=== PATIENT | female | born 1985 | race Caucasian/White ===

== ENCOUNTER → 2018-02-12 10:30 | Outpatient (CLI) | payer OTHER, SELFPAY ==
[2018-02-17 15:00] LABS: AFP, Serum 48.3 ng/mL; Brief History NTD NOT GIVEN; Calc Gestational Age 16.3; Cigarette Smoker Y; Donated Egg NOT GIVEN; Donor Egg Age NOT GIVEN; Estriol, Free 0.77 ng/mL; Inhibin A, Dimeric 134 pg/mL; Maternal Ethnicity NOT GIVEN; Maternal Weight 155 lbs; Number of Fetuses NOT GIVEN; Previous Pregnancy Down Syndro NOT GIVEN; hCG, MoM 0.81; hCG, Serum 25.8 IU/mL
== END ==
PROVIDERS: PCP Family Medicine; Visit Provider Obstetrics & Gynecology
DX: Z34.82 Encounter for supervision of other normal pregnancy, second trimester (principal)
CPT/HCPCS: 36415; 82105; 82677; 84702; 86336

== ENCOUNTER → 2018-03-14 13:07 | Outpatient (CLI) | payer OTHER, SELFPAY ==
--- NOTE | 2018-03-14 13:08 | DI.US.S_ITS ---
PROCEDURE: US OB >= 14 WEEKS FETUS INDICATIONS: ANATOMY OUTSIDE/PRIOR DATING DATA: Last menstrual period (LMP): 10/21/17. LMP-based estimated date of delivery (DORENE): 07/28/18. First dating scan (date and location): 03/14/18. Estimated date of delivery (DORENE) from first dating scan: 07/27/18. TECHNIQUE: Real-time scanning was performed of the fetus, with image documentation and biometric measurements. Endovaginal scanning: No COMPARISON: [facility], , OB >= 14 WEEKS FETUS, 02/24/2018, 14:49. FINDINGS: General: A single living intrauterine gestation is present. Presentation: Breech. Placenta: Placental position is anterior, without previa. Amniotic fluid index: 15.1 cm, normal range is 5-24 cm. heart rate: 149 beats per minute. Maternal cervical canal: 3.6 cm long. biometrics: Biparietal diameter: 21 weeks 2 days Head circumference: 21 weeks 2 days Abdominal circumference: 20 weeks 0 days Femur length: 20 weeks 2 days Estimated gestational age from initial scan: not applicable. Composite gestational age from present scan: 20 weeks 5 days Estimated weight and percentile: 346 g; 32nd percentile Measurement variability for biometric dating: +/- 7 days from 14 weeks to 15 weeks 6 days gestation, +/- 10 days from 16 weeks to 21 weeks 6 days gestation, +/- 2 weeks from 22 weeks to 27 weeks 6 days gestation, +/- 3 weeks for 28 weeks gestation or later. weight reference: 4500 g or EFW >90/95% is considered macrosomia or large for gestational age. EFW <10% is small for gestational age. EFW 5% or less is considered intra-uterine growth restriction. Anatomic survey: Neuro: Ventricles are non-dilated at less than 10 mm. Cisterna magna is normal at 3-11 mm. Cerebellum is normal in size and morphology. Nuchal skin fold: Normal at less than 6 mm between 14-21 weeks gestational age. Face: Nose and lips, facial profile are normal. Spine: No evidence for spina bifida. Heart: 4-chambered heart is present, with normal ventricular outflow tracts. Diaphragm: Diaphragm is intact. Stomach: Left-sided stomach is present. Kidneys: No hydronephrosis. Normal is less than 5 mm in 2nd trimester, less than 7 mm in 3rd trimester. Cord: 3-vessel cord has orthotopic insertion. Bladder: Normal in size. Extremities: All 4 extremities identified. IMPRESSION: Single living IUP present with mean gestational age of 20 weeks 5 days corresponding to ultrasound DORENE of 07/27/18. Normal anatomic survey. Dictated by: Fabian Hadley RRA Interpreted: Clare Del Rio MD on 03/14/2018 at 14:19 Approved by: Clare Del Rio MD, PhD on 03/14/2018 at 15:52
== END ==
PROVIDERS: PCP Family Medicine; Visit Provider Obstetrics & Gynecology
DX: Z34.82 Encounter for supervision of other normal pregnancy, second trimester (principal); Z3A.20 20 weeks gestation of pregnancy; Z36.89 Encounter for other specified antenatal screening
CPT/HCPCS: 76811

== ENCOUNTER → 2018-04-30 13:13 | Outpatient (CLI) | payer OTHER, SELFPAY ==
[2018-04-30 14:55] LABS: Hematocrit 27.3 % (36-46); Hemoglobin 9.2 g/dL (12.0-16.0)
[2018-04-30 15:20] LABS: GTT (PREG) 1 Hour PP 50gm Dose 115 mg/dL (76-139)
== END ==
PROVIDERS: PCP Family Medicine; Visit Provider Obstetrics & Gynecology
DX: Z34.82 Encounter for supervision of other normal pregnancy, second trimester (principal)
CPT/HCPCS: 36415; 82950; 85014; 85018

== ENCOUNTER 2018-06-24 13:45 | Outpatient (RCR) | payer OTHER, SELFPAY ==
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
--- NOTE | 2018-01-23 11:14 | PT.OPPOC ---
Current Diagnoses Sacrococcygeal disorders, not elsewhere classified (01/22/18) Strain of muscle, fascia and tendon of lower back, subsequent encounter (01/22/18) 10 weeks gestation of (01/22/18) Provider Visit Care Team Role Provider Type Trinidad Ta DO Primary Care Provider Physician Specialty: Family Practice Address: [address] [place] [address] Email: [email or web address] Moriah Diop MD Attending Provider Physician Specialty: CATSHOVEL DRIVER Address: [address] [place] [address], [id number] Email: [email or web address] Plan Of Care PT-OP-T Assessment and Plan Start: 01/22/18 13:44 Freq: Status: Active Protocol: Document 01/23/18 11:06 [facility] (Rec: 01/23/18 11:12 [facility] [email or web address]) Physical Therapy Assessment Rehab Potential Rehabilitation Potential Excellent Evaluation Complexity Number of Personal Factors/Comorbidities 1-2 Number of Body Systems Impaired 1-2 Clinical Presentation at Evaluation Stable Impairments Impairments Activity Tolerance Pain Posture ROM Soft Tissue Mobility Strength Other Impairments related SI instability Goals Four Impairment 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 Short Term Goal (STG) with manual therapy techniques the SI joint is properly aligned and leg length is equal STG Duration 4 weeks Three Impairment tightness of the lumbar paraspinals and decreased lumbar flexion Short Term Goal (STG) Arleen is educated on a home stretching program for her back to improve lumbar flexion and to help decrease soft tissue tightness STG Duration 4 weeks Two Impairment SI instability in Short Term Goal (STG) Arleen is fitted with a SI belt for improved support of her SI joint and is shown home abdominal and pelvic floor bracing exercises to help her stay in alignment STG Duration 4 weeks One Impairment pain made worse with sitting and laying on the left side rated 8/10 Skewer Up Goal (LTG) Arleen notes a reduction in pain and is able to increase her sitting tolerance to 1/2 hr or greater LTG Duration 8 weeks Assessment Summary Assessment Arleen presents to PT with symptoms of increased back pain during her . She is limited in lumbar ROM and has instability of her pelvis. She would benefit from a SI belt to use at home as well as a home stabilization and flexibility exercise program Physical Therapy Plan Frequency and Duration Frequency of Treatment 2x/Week Duration of Treatment 8 weeks Plan of Care Start Date 01/22/18 Plan of Care End Date 03/19/18 Therapeutic Interventions Therapeutic Interventions Home Exercise Program Manual Therapy Neuromuscular Re-education Patient/Caregiver Education Self-Care/Home Management Soft Tissue Mobilization Therapeutic Exercises Modalities Cold Pack/Ice Massage Plan of Care Dates Plan of Care Start Date 01/22/18 Plan of Care End Date 03/19/18 Please Sign and Return: I have reviewed this Plan of Care and certify that the skilled therapy services above are required to meet the patient???s needs. Physician Signature Date Printed Name and Credentials
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
--- NOTE | 2018-06-10 16:49 | PT.OPPOC ---
Current Diagnoses Sacrococcygeal disorders, not elsewhere classified (06/10/18) Strain of muscle, fascia and tendon of lower back, subsequent encounter (06/10/18) 10 weeks gestation of (06/10/18) Provider Visit Care Team Role Provider Type Trinidad Ta DO Primary Care Provider Physician Specialty: Family Practice Address: [address] [place] [address] Email: [email or web address] Moriah Diop MD Attending Provider Physician Specialty: POULTRY FEED SUPERVISOR Address: [address] [place] [address], [id number] Email: [email or web address] Plan Of Care PT-OP-T Assessment and Plan Start: 01/22/18 13:44 Freq: Status: Active Protocol: Document 06/10/18 16:40 [facility] (Rec: 06/10/18 16:48 [facility] [email or web address]) Physical Therapy Assessment Assessment Summary Assessment Arleen returns to PT today after not being seen since . She notes she was saving her PT visits until now . She is experiencing left sided sciatic symptoms again and ongoing c/o LBP. I reviewed her HEP with her today and also discussed shoe wear for work. She has PT visits scheduled now until close to delivery. Physical Therapy Plan Frequency and Duration Frequency of Treatment 2x/Week Duration of Treatment 8 Plan of Care Start Date 06/10/18 Plan of Care End Date 08/05/18 Therapeutic Interventions Therapeutic Interventions Home Exercise Program Manual Therapy Neuromuscular Re-education Patient/Caregiver Education Self-Care/Home Management Soft Tissue Mobilization Therapeutic Exercises Next Visit Focus/Plan Next Note Type Treatment Note Next Visit Plan focus on stabilization of the SI joint for and postural modifications Plan of Care Dates Plan of Care Start Date 06/10/18 Plan of Care End Date 08/05/18 Please Sign and Return: I have reviewed this Plan of Care and certify that the skilled therapy services above are required to meet the patient?s needs. Physician Signature Date Printed Name and Credentials Clinical Instructor Signature Printed Name and Credentials
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
== END 2018-10-15 14:04 ==
LOC: PHYS 13:45
PROVIDERS: PCP Family Medicine; Visit Provider Obstetrics & Gynecology
DX: M53.3 Sacrococcygeal disorders, not elsewhere classified (principal); S39.012D Strain of muscle, fascia and tendon of lower back, subsequent encounter; Z3A.10 10 weeks gestation of pregnancy
CPT/HCPCS: 97110; 97140; 97161

== ENCOUNTER 2018-06-25 09:56 | Observation (INO) | payer OTHER, SELFPAY ==
[2018-06-25] MEDS: NIFEdipine 10 MG CAPSULE PO ×4 (10:40→11:40)
[2018-06-25] MEDS: TERBUTALINE 1 MG/ML VIAL 0.25 MG SUBCUT ×2 (12:16→13:30)
[2018-06-25] MEDS: NIFEdipine 30 MG TAB ER PO (13:25)
== END 2018-06-25 15:15 | disposition home or self-care (01) ==
PROVIDERS: Admitting Provider Obstetrics & Gynecology; PCP Family Medicine; Visit Provider Obstetrics & Gynecology
DX: Z34.83 Encounter for supervision of other normal pregnancy, third trimester (principal); Z3A.35 35 weeks gestation of pregnancy
CPT/HCPCS: 59025; 59050; 96372; G0378; G0379

== ENCOUNTER → 2018-06-25 10:43 | Outpatient (CLI) | payer OTHER, SELFPAY ==
[2018-06-26 08:00] LABS: Strep Grp B PCR POS for Grp B Strep
== END ==
PROVIDERS: PCP Family Medicine; Visit Provider Obstetrics & Gynecology
DX: Z34.93 Encounter for supervision of normal pregnancy, unspecified, third trimester (principal); Z3A.35 35 weeks gestation of pregnancy
CPT/HCPCS: 87653

== ENCOUNTER 2018-06-28 13:28 | Inpatient (IN) | payer OTHER, SELFPAY ==
[2018-06-28] MEDS: NIFEdipine 10 MG CAPSULE PO ×4 (14:17→15:25)
[2018-06-28] MEDS: LACTATED RINGERS 1,000 ML 1000 ML IV (14:30)
--- NOTE | 2018-06-28 14:52 | PM.OBTRLD ---
Visit Information Visit Information Date of evaluation: 06/28/18 Primary OB Provider: Moriah Diop On-call OB Provider: Marian Conrad Reason for Evaluation: Yes pre-term labor [facility] Medical History Depression (Chronic) Migraines (Chronic) Abnormal Pap smear of cervix (Resolved) Surgical History History of third molar tooth extraction (Resolved) Status post wrist surgery (Resolved) Social History Smoking Status: Former smoker (quit about 5 months ago) Evaluation Evaluation Baseline heart rate: 140 Variability: Moderate (11-25) monitor accelerations: Present monitor decelerations: Absent Contraction Frequency (minutes): 2 Uterine Contraction Intensity: Mild Category of Tracing: I Cervical dilation (cm): 3 Cervical effacement (%): 50 station: -2 Diagnosis, Plan/Disposition Final Diagnosis (1) 35 weeks gestation of : Current Visit: Yes Status: Acute Plan/Disposition Plan: Patient came to the center with regular contractions every 2 minutes. Contractions decreased in intensity and frequency with fluids and nifedipine. SVE unchanged from 3 days ago.
--- NOTE | 2018-06-28 14:57 | P.TNLD_ITS ---
Visit Information Visit Information Date of evaluation: 06/28/18 Primary OB Provider: Moriah Diop On-call OB Provider: Marian Conrad Reason for Evaluation: Yes pre-term labor [facility] Medical History Depression (Chronic) Migraines (Chronic) Abnormal Pap smear of cervix (Resolved) Surgical History History of third molar tooth extraction (Resolved) Status post wrist surgery (Resolved) Social History Smoking Status: Former smoker (quit about 5 months ago) Evaluation Evaluation Baseline heart rate: 140 Variability: Moderate (11-25) monitor accelerations: Present monitor decelerations: Absent Contraction Frequency (minutes): 2 Uterine Contraction Intensity: Mild Category of Tracing: I Cervical dilation (cm): 3 Cervical effacement (%): 50 station: -2 Diagnosis, Plan/Disposition Final Diagnosis (1) 35 weeks gestation of : Current Visit: Yes Status: Acute Plan/Disposition Plan: Patient came to the center with regular contractions every 2 minutes. Contractions decreased in intensity and frequency with fluids and nifedipine. SVE unchanged from 3 days ago.
[2018-06-28] MEDS: MORPHINE 10 MG/ML INJ IV (15:25)
--- NOTE | 2018-06-28 17:10 | PM.OBHP.1 ---
OB HPI Date/Time Date of admission: 06/28/18 Date Patient Seen: 06/28/18 Time Patient Seen: 16:29 History of Present Condition Chief complaint: eval of labor : 2 Para: 1 Estimated Date of Delivery: 07/27/18 Estimated Gestational Age (weeks): 35w6d Narrative: Arleen Bird is a 32 year old female at 35+6 weeks gestation by LMP and first trimester US. Patient received regular care beginning at 10 weeks gestation. complicated by hypothyroidism, depression and chronic back pain. Patient took citalopram, bupropion, levothyroxine and tramadol throughout her . She presented today with regular painful contractions which began at noon on 06/28/18. She was seen in the center on 06/25/18 due to contractions and received nifedipine and terbutaline at that visit. History of Present care: good care, initiated at week # (10), number of visits (9) and pounds weight gain (27 lbs) Dating criteria: LMP confirmed by 1st trimester US (LMP 10/21/17, UW at 10 wks with DORENE of 07/30/18) Ultrasounds: normal mid trimester US Obstetrical complications: none Narrative: Chronic back pain on tramadol Depression on citalopram and bupropion Hypothyroidism on levothyroxine Preadmission Labs Blood type: A (+) positive -: Antibody screen: negative, GBS status: positive, HBsAG: negative, HIV: negative, HSV 1: negative, HSV 2: negative and RPR/VDLR: negative -: Chlamydia screen: not detected and Gonorrhea screen: not detected -: Rubella: not immune and Varicella: immune HCT: 33.3 PAP: Normal Integrated screen: Negative Quad screen: Normal Urine: Negative 1 hr GTT: 113 Prior (ies) History: 04/03/2009 at 40 weeks, 6 lbs 9 oz female, difficulty with epidural, delivered at [facility] Evaluation Evaluation Baseline heart rate: 140 Variability: Moderate (11-25) monitor accelerations: Present monitor decelerations: Absent Contraction Frequency (minutes): 3 Uterine Contraction Intensity: Moderate Category of Tracing: I Cervical dilation (cm): 4 Cervical effacement (%): 90 station: -2 [facility] Medical History Depression (Chronic) Migraines (Chronic) Abnormal Pap smear of cervix (Resolved) Surgical History History of third molar tooth extraction (Resolved) Status post wrist surgery (Resolved) Social History Smoking Status: Former smoker (quit about 5 months ago) Meds Home Medications Medication Instructions Recorded Confirmed Type levothyroxine 75 mcg tablet 75 mcg PO QDAY #90 tab 01/21/18 05/28/18 Rx hydrocortisone 2.5 % topical cream 1 applictn [place] Q12H PRN #30 gram 02/12/18 05/28/18 Rx with perineal applicator bupropion HCl SR 150 mg tablet,12 150 mg PO BID #60 tab 03/25/18 05/28/18 Rx hr sustained-release acetaminophen 500 mg tablet 1,000 mg PO Q6H PRN #120 tab 04/09/18 05/28/18 Rx hydroxyzine HCl 50 mg tablet 50 mg PO QID PRN #120 tab 04/09/18 05/28/18 Rx citalopram 40 mg tablet 40 mg PO Q DAY #90 tab 05/21/18 05/28/18 Rx lidocaine 5 % topical patch 1 patch TOP DAILY #15 each 05/21/18 05/28/18 Rx tramadol 50 mg tablet 100 mg PO Q6H #120 tab 06/19/18 Rx gabapentin 300 mg capsule 600 mg PO BEDTIME #60 cap 06/27/18 Rx Allergies Allergy/AdvReac Type Severity Reaction Status Date / Time ketorolac [From TORADOL] Allergy Intermediate vomiting Verified 05/28/18 15:19 clindamycin [CLINDAMYCIN] Allergy Mild rash/itchy Verified 05/28/18 15:19 Review of Systems Review of Systems All systems reviewed & are unremarkable except as noted in HPI and below Exam Vital Signs (past 8 hours): Temperature 36.2 BP 109/67 Pulse 108 Const General: cooperative and healthy appearing [facility] Head: normal to inspection Ears: external ears normal Nose: external nose normal Mouth: oral mucosae normal Eyes General: appearance normal, both eyes and all related structures Neck Neck: normal visual inspection and No lymphadenopathy Resp Effort & Inspection: normal respiratory effort Auscultation: clear to auscultation bilaterally, no rhonchi and no wheezes Cardio Rate: regular rate Rhythm: regular rhythm Heart Sounds: S1 normal and S2 normal GI Other: Gravid Neuro General: alert, awake and oriented x3 Extrem General: no pedal edema Psych Appearance: grossly normal Mental Status: mental status grossly normal Mood: congruent mood Affect: normal affect Attitude: cooperative Thought Process: normal Thought Content: normal Judgment: judgment good Assessment and Plan (1) 35 weeks gestation of : Current visit: Yes Status: Acute (2) labor: Current visit: Yes Status: Acute Plan: Patient is a 32-year-old at 35 and 5 weeks gestation based on LMP and first trimester ultrasound here with labor. complicated by hypothyroidism, depression and chronic back pain. Patient did take tramadol throughout her . She was monitored over the afternoon today due to regular painful contractions and had cervical change from 3 to 4 cm despite nifedipine and IV fluids. We do not have the nursery or nursing staff available to us to manage a . Plan - Transfer to [facility] for NICU capabilities - Patient is GBS positive and receiving one dose of penicillin now - One dose of betamethasone will be given prior to transfer Patient and her partner aware of and appreciative of plan.
[2018-06-28 17:26] LABS: Add Manual Diff / Slide Review NO; Basophils Percent Auto 0.1 % (0-2); Eosinophils Percent Auto 0.5 % (2-4); Hemoglobin 9.1 g/dL (12.0-16.0); Lymphocytes Percent Auto 16.6 % (25-40); Mean Corpuscular HGB Conc 32.6 % (30-36); Mean Corpuscular Hemoglobin 26.8 PG (26-34); Mean Corpuscular Volume 82.4 fL (80-100); Monocytes Percent Auto 5.7 % (3-14); Neutrophils Absolute Auto 10400 /uL (3000-5900); Neutrophils Percent Auto 77.1 % (50-75); Platelet Count 230 X10^3/uL (150-400); Red Cell Distribution Width 13.5 % (11.6-14.8); White Blood Cell Count 13.5 X10^3/uL (4.5-11.0)
[2018-06-28] MEDS: LACTATED RINGERS 1,000 ML 100 ML IV (17:30)
[2018-06-28] MEDS: PENICILLIN G POTASSIUM 5,000,000 UNIT in DEXTROSE 5% IN WATER 250 ML IV (17:30)
[2018-06-28] MEDS: BETAMETHASONE 30 MG/5 ML MDV 12 MG IM (17:34)
== END 2018-06-28 17:52 | disposition short-term general hospital (02) | DRG 833 ==
PROVIDERS: Admitting Provider Family Medicine; PCP Family Medicine; Visit Provider Family Medicine
DX: O60.03 Preterm labor without delivery, third trimester (principal); Z3A.35 35 weeks gestation of pregnancy; O99.283 Endocrine, nutritional and metabolic diseases complicating pregnancy, third trimester; E03.9 Hypothyroidism, unspecified; O99.343 Other mental disorders complicating pregnancy, third trimester; F32.9 Major depressive disorder, single episode, unspecified; G89.29 Other chronic pain
CPT/HCPCS: 36415; 59025; 59050; 85025; 86850; 86900; 86901; 96360; 96372; 99236; G0378; G0379; J0702; J2270; J2540

== ENCOUNTER 2018-07-06 16:52 | Inpatient (IN) | payer OTHER, SELFPAY ==
[2018-07-06] MEDS: PENICILLIN G POTASSIUM 5,000,000 UNIT in DEXTROSE 5% IN WATER 250 ML IV (17:00)
[2018-07-06] MEDS: ONDANSETRON 4 MG/2 ML INJ IV (17:20)
--- NOTE | 2018-07-06 18:00 | PM.OBHP.1 ---
OB HPI Date/Time Date of admission: 07/06/18 Date Patient Seen: 07/06/18 Time Patient Seen: 18:01 History of Present Condition Chief complaint: OBSERVATION : 2 Para: 1 Estimated Date of Delivery: 07/28/18 Estimated Gestational Age (weeks): 36 Narrative: Arleen Bird is a 32 year old female two para one who presents with a history of onset of labor at approximately 2:00 p.m. and rupture membranes at approximately 4:00 p.m.. She presented to labor and delivery sweets completely dilated with lightly meconium stained amniotic fluid. Patient by history of GBS positive. Please see laboratory studies below History of Present care: good care Dating criteria: LMP confirmed by 1st trimester US Ultrasounds: normal 1st trimester US and normal mid trimester US Obstetrical complications: none and labor Medical complications: none Narrative: Patient presents in spontaneous labor with rupture membranes at 36+ weeks Preadmission Labs Blood type: A (+) positive -: Antibody screen: negative, Cystic fibrosis screen: positive ([place]), GBS status: positive, HBsAG: negative, HIV: negative, HSV 1: negative, HSV 2: negative and RPR/VDLR: negative -: Chlamydia screen: not detected and Gonorrhea screen: not detected -: Rubella: not immune HCT: 33.3 HCAB: negative PAP: Normal Integrated screen: Negative 1 hr GTT: 191 PFSH Social History Smoking Status: Former smoker (quit about 5 months ago) Meds Home Medications Medication Instructions Recorded Confirmed Type levothyroxine 75 mcg tablet 75 mcg PO QDAY #90 tab 01/21/18 05/28/18 Rx hydrocortisone 2.5 % topical cream 1 applictn MD Q12H PRN #30 gram 02/12/18 05/28/18 Rx with perineal applicator bupropion HCl SR 150 mg tablet,12 150 mg PO BID #60 tab 03/25/18 05/28/18 Rx hr sustained-release acetaminophen 500 mg tablet 1,000 mg PO Q6H PRN #120 tab 04/09/18 05/28/18 Rx hydroxyzine HCl 50 mg tablet 50 mg PO QID PRN #120 tab 04/09/18 05/28/18 Rx citalopram 40 mg tablet 40 mg PO Q DAY #90 tab 05/21/18 05/28/18 Rx lidocaine 5 % topical patch 1 patch TOP DAILY #15 each 05/21/18 05/28/18 Rx tramadol 50 mg tablet 100 mg PO Q6H #120 tab 06/19/18 Rx gabapentin 300 mg capsule 600 mg PO BEDTIME #60 cap 06/27/18 Rx nifedipine ER 30 mg 30 mg PO BID #30 tab 06/30/18 Rx tablet,extended release Allergies Allergy/AdvReac Type Severity Reaction Status Date / Time ketorolac [From TORADOL] Allergy Intermediate vomiting Verified 05/28/18 15:19 clindamycin [CLINDAMYCIN] Allergy Mild rash/itchy Verified 05/28/18 15:19 Exam Const General: cooperative and healthy appearing [facility] Head: normal to inspection Ears: hearing grossly normal bilaterally Nose: external nose normal Face and sinus: normal facial exam Mouth: oral mucosae normal, lip normal, tongue normal and moist mucous membranes Teeth and gingiva: dentition normal Throat: posterior oropharynx normal Eyes General: appearance normal, both eyes and all related structures Neck Neck: normal visual inspection and full ROM Chest Chest: normal inspection of the chest and normal palpation of entire chest wall Breast inspection: normal inspection of the breasts and normal inspection of the axillae Breast Palpation: normal palpation of the breasts and normal palpation of the axillae Resp Effort & Inspection: normal respiratory effort Auscultation: clear to auscultation bilaterally Cardio Palpation: normal PMI Rate: regular rate Rhythm: regular rhythm Heart Sounds: S1 normal and S2 normal GI Inspection: normal to inspection Palpation: soft and no hepatosplenomegaly Percussion: normal to percussion Auscultation: normal bowel sounds Manual OB Exam: dilated 10, effaced fully and station 0 Presentation: vertex Amniotic Fluid: meconium Back/Spine/Pelvis Thoracic/Lumbar Spine: thoracic and lumbar spine normal to inspection Skin General: no rashes or lesions noted Neuro General: alert, oriented x3, tone normal and moves all extremities Cognition: normal cognition Speech: speech normal Gait: normal gait Motor: muscle tone normal throughout Sensory Exam: no sensory deficits noted Extrem General: normal to inspection and normal exam except as noted Psych Appearance: grossly normal and well kempt Mental Status: mental status grossly normal Speech and Movement: speech and movement normal Assessment and Plan (1) 36 weeks gestation of : Onset Date: ~07/06/18 Current visit: Yes Status: Acute Plan: Plan: IV fluids Epidural anesthesia Delivery IV penicillin
--- NOTE | 2018-07-06 20:02 | PM.OBPRVD ---
Events: Labor < 37 Weeks Delivery date: 07/06/18 Intrapartal events: Abnormal Presentation (Face presentation, mentum anterior) Induction method: none Delivery monitor: external FHT and external uterine Route of delivery: Episiotomy description: None Laceration description: Vaginal - 2nd Degree Delivery repair: vicryl and chromic Estimated blood loss (mL): 250 Anesthesia type: Spinal Complications: Face presentation Loose body cord x 1 Narrative: The patient was complete and pushed for 35 min. At 1915, a live female infant delivered spontaneously with a face presentation, mentum anterior, over an intact perineum. Once the head delivered the baby rotated to the left occiput transverse presentation and the remainder of the body delivered without difficulty. There was a loose body cord x1. This was reduced. The was placed on mom's abdomen. The cord was double clamped and cut. Cord bloods were obtained. The placenta delivered intact with a 3 vessel cord at 7:20 p.m.. A second-degree vaginal laceration was repaired in the usual fashion. Estimated blood loss 250 cc. Apgars 6 at 1 min and 8 at 5 min. Spinal anesthesia. . Mom and stable to recovery. Plan for aftercare: To routine care
--- NOTE | 2018-07-06 20:09 | P.PCNOB_ITS ---
Events: Labor < 37 Weeks Delivery date: 07/06/18 Intrapartal events: Abnormal Presentation (Face presentation, mentum anterior) Induction method: none Delivery monitor: external FHT and external uterine Route of delivery: Episiotomy description: None Laceration description: Vaginal - 2nd Degree Delivery repair: vicryl and chromic Estimated blood loss (mL): 250 Anesthesia type: Spinal Complications: Face presentation Loose body cord x 1 Narrative: The patient was complete and pushed for 35 min. At 1915, a live female infant delivered spontaneously with a face presentation, mentum anterior , over an intact perineum. Once the head delivered the baby rotated to the left occiput transverse presentation and the remainder of the body delivered without difficulty. There was a loose body cord x1. This was reduced. The infant was placed on mom's abdomen. The cord was double clamped and cut. Cord bloods were obtained. The placenta delivered intact with a 3 vessel cord at 7: 20 p.m.. A second-degree vaginal laceration was repaired in the usual fashion. Estimated blood loss 250 cc. Apgars 6 at 1 min and 8 at 5 min. Spinal anesthesia. . Mom and infant stable to recovery. Plan for aftercare: To routine care
[2018-07-06 21:51] VITALS: BP 130/58
[2018-07-06] MEDS: IBUPROFEN 600 MG TABLET PO (23:17)
[2018-07-07] MEDS: IBUPROFEN 600 MG TABLET PO ×3 (06:09→21:11)
[2018-07-07 06:50] LABS: Hematocrit 24.9 % (36-46); Hemoglobin 8.5 g/dL (12.0-16.0)
[2018-07-07] MEDS: PRENATAL VIT,CALC/IRON/FOLIC 1 TABLET 1 TAB PO (08:12)
[2018-07-07] MEDS: DOCUSATE 250 MG CAPSULE PO (08:12)
[2018-07-07] MEDS: OXYCODONE/ACETAMINOPHEN 5/325 TABLET 2 TAB PO ×4 (08:13→21:11)
[2018-07-07] MEDS: LEVOTHYROXINE 75 MCG TABLET PO (08:16)
[2018-07-07] MEDS: CITALOPRAM 20 MG TABLET 40 MG PO (08:16)
[2018-07-07] MEDS: buPROPion SR 150 MG TAB PO ×2 (08:16→21:10)
--- NOTE | 2018-07-07 18:35 | P.PNOB_ITS ---
Subjective - OB Patient comments: no complaints baby status: other (Blood sugar issues) Campbell feeding status: breast and bottle feeding Date Patient Seen: 07/07/18 Time Patient Seen: 18:32 Exam Vital Signs (past 8 hours): Generally: Patient is sitting up in bed, holding , no acute distress Fundus: Firm at U -2 Extremities: Negative Homans, no edema Objective Labs Result Diagrams: 07/07/18 06:08 Labs: Laboratory Results - last 24 hr 07/07/18 06:08 Hgb 8.5 L Hct 24.9 L Assessment & Plan (1) 36 weeks gestation of : Status: Acute Current Visit: Yes (2) Vaginal delivery: Status: Acute Current Visit: Yes (3) Face presentation of fetus: Status: Acute Assessment and plan: Assessment: 32-year-old day # 1 status post spontaneous vaginal delivery with face presentation Baby with blood sugar issues Plan: Routine care for mom Anticipate discharge of mom tomorrow Current Visit: Yes Plan day: 1 plan OB: routine care Time Spent With Patient Total time spent is greater than 50% in coordination of care (as documented) at patient's floor/unit and/or counseling patient: less than 15 minutes
[2018-07-08] MEDS: IBUPROFEN 600 MG TABLET PO ×2 (03:47→09:14)
[2018-07-08] MEDS: OXYCODONE/ACETAMINOPHEN 5/325 TABLET 2 TAB PO ×3 (03:48→09:14)
[2018-07-08] MEDS: PRENATAL VIT,CALC/IRON/FOLIC 1 TABLET 1 TAB PO (09:10)
[2018-07-08] MEDS: DOCUSATE 250 MG CAPSULE PO (09:13)
[2018-07-08] MEDS: LEVOTHYROXINE 75 MCG TABLET PO (09:13)
[2018-07-08] MEDS: CITALOPRAM 20 MG TABLET 40 MG PO (09:13)
[2018-07-08] MEDS: buPROPion SR 150 MG TAB PO (09:13)
--- NOTE | 2018-07-08 09:54 | P.DS_ITS ---
Discharge Providers Date of admission: 07/06/18 16:52 Primary care physician: Trinidad Ta DO Consults: 07/06/18 21:45 Consult to Field Agent Routine Comment: Discharge provider: Alyssa Tapia MD Discharge Date: 07/08/18 Summary Date Patient Seen: 07/08/18 Time Patient Seen: 09:50 Hospital Course: Patient arrived on Labor and delivery in active labor. The baby was in face presentation. She did deliver spontaneously vaginally. She had a second- degree tear that was repaired. Patient did well . She denies any signs or symptoms of preeclampsia. She is having moderate amount of bleeding. No significant depression at this time. Blood pressure 117/73, pulse of 107, temperature 98.9? Patient's abdomen is soft, nontender. Uterus is firm, at U, nontender. Mild to moderate lochia. Repair intact. Extremities without edema and nontender. Peripartum Data Delivery Method: Natural Vaginal Laceration description: Perineal - 2nd Degree Procedures: IV penicillin for positive group B strep culture, Spinal caudal block, vaginal delivery, repair of second-degree tear complications: none Discharge Diagnosis (1) 36 weeks gestation of : Status: Acute (2) Vaginal delivery: Status: Acute (3) Face presentation of fetus: Status: Acute Status at Discharge Functional status at discharge: independent ambulation Overall status at discharge: patient is progressing back to baseline Time Spent with Patient Total time spent providing and/or coordinating discharge services: Less than 30 minutes Objective Labs Result Diagrams: 07/07/18 06:08 Discharge Plan Discharge Plan Patient Disposition: Home Discharge Med Rec/Prescriptions Prescriptions: New oxycodone-acetaminophen 5-325 mg Tablet 2 tab PO Q4HR PRN (Reason: Pain, Moderate (4-6)) Qty: 20 RF: 0 ibuprofen 600 mg Tablet 600 mg PO Q6HR PRN (Reason: Pain, Mild (1-3)) Qty: 30 RF: 0 docusate sodium 250 mg Capsule 250 mg PO DAILY Qty: 20 RF: 0 Continue levothyroxine [Synthroid] 75 mcg tablet 75 mcg PO QDAY Qty: 90 RF: 4 bupropion HCl [Wellbutrin SR] 150 mg tablet extended release 12 hr 150 mg PO BID Qty: 60 RF: 3 tramadol 50 mg tablet 100 mg PO Q6H Qty: 120 RF: 0 gabapentin 300 mg capsule 600 mg PO BEDTIME Qty: 60 RF: 1 hydrocortisone [Anusol-HC] 2.5 % cream with perineal applicator 1 applictn [place] Q12H PRN (Reason: hemorrhoids) Qty: 30 RF: 2 acetaminophen [Tylenol Extra Strength] 500 mg tablet 1,000 mg PO Q6H PRN (Reason: pain) Qty: 120 RF: 1 citalopram 40 mg tablet 40 mg PO Q DAY Qty: 90 RF: 1 Discontinued nifedipine 30 mg tablet extended release 30 mg PO BID Qty: 30 RF: 1 hydroxyzine HCl 50 mg tablet 50 mg PO QID PRN (Reason: nausea and vomiting) Qty: 120 RF: 0 lidocaine 5 % adhesive patch,medicated 1 patch TOP DAILY Qty: 15 RF: 0 Follow up/Referrals: Moriah Diop MD [Physician] - 6 Weeks Trinidad Ta DO [Primary Care Provider] - Provider Discharge Instructions Diet: Regular Activity: Nothing in vagina for 6 weeks Skin/Wound/Dressing Care Report to your healthcare provider any signs of infection, such as:: chills, fever, increased pain and unusual drainage Discharge Data Primary Care Provider: Trinidad Ta Attending Provider: Godwin Walls Admirvin Date/Time: 07/06/18 16:52
[2018-07-08 13:05] VITALS: BP 130/58; PULSE 80; RESP 18; TEMP 36.4
[2018-07-08] MEDS: MEASLES,MUMPS,RUBELLA VACC/PF 0.5 ML VIAL SUBCUT (15:30)
== END 2018-07-08 15:30 | disposition home or self-care (01) | DRG 805 ==
PROVIDERS: Obstetrics & Gynecology; PCP Family Medicine
DX: O32.3XX0 Maternal care for face, brow and chin presentation, not applicable or unspecified (principal); O60.14X0 Preterm labor third trimester with preterm delivery third trimester, not applicable or unspecified; Z37.0 Single live birth; Z3A.36 36 weeks gestation of pregnancy; O70.1 Second degree perineal laceration during delivery; O99.824 Streptococcus B carrier state complicating childbirth
CPT/HCPCS: 01967; 36415; 59050; 59400; 76815; 84112; 85014; 85018; G0379; J2405; J2540

== ENCOUNTER → 2018-08-19 14:45 | Outpatient (CLI) | payer OTHER, SELFPAY ==
[2018-08-19 17:01] LABS: Free T4, Direct Thyroxine 0.83 ng/dL (0.78-2.19)
[2018-08-19 17:15] LABS: Thyroid Stimulating Hormone 0.77 uIU/mL (0.47-4.68)
== END ==
PROVIDERS: PCP Family Medicine; Visit Provider Obstetrics & Gynecology
DX: R63.5 Abnormal weight gain (principal)
CPT/HCPCS: 36415; 84439; 84443

== ENCOUNTER 2019-03-14 17:36 | Emergency (ER) | payer SELFPAY ==
[2019-03-14 17:40] VITALS: BP 113/67; PULSE 98; RESP 16; TEMP 36.5; O2SAT 98; BMI 58.6
--- NOTE | 2019-03-14 19:18 | ED_ITS ---
HPI - Back Pain/Injury <Didi AndersenRODERICK - Last Filed: 03/14/19 21:24> General Chief Complaint: Back Pain/Injury Stated Complaint: low back pain x2 days Time Seen by Provider: 03/14/19 19:06 Source: patient Mode of arrival: ambulatory Limitations: no limitations History of Present Illness HPI Narrative: 33-year-old female with a history of sciatica, presents emergency department today complaining of lower back pain that started about a week ago after picking up the child. She states it is a constant dull aching 8/10 to her lumbar region and radiates down her right leg. States pain is sharp and worse when she moves, and better with rest. She has been taking ibuprofen and using ice without relief. Also states that she is currently breast-feeding. Denies numbness or tingling, denies saddle paresthesias, loss of bowel or bladder control, fevers, chills, chest pain, shortness of breath, abdominal pain, change in bowel or bladder patterns. Patient also reports she has received multiple steroid injections for her chronic sciatica, however this feels different. MD Complaint: back pain Onset (ago): day(s) Duration: constant Similar Symptoms Previously: No Severity: moderate Severity scale (1-10): 8 Related Data Previous Rx's Medication Instructions Recorded acetaminophen 500 mg tablet 1,000 mg PO Q6H PRN #120 tab 04/09/18 hydroxyzine HCl 50 mg tablet 50 mg PO QID PRN #120 tab 04/09/18 lidocaine 5 % topical patch 1 patch TOP DAILY #15 each 05/21/18 nifedipine ER 30 mg 30 mg PO BID #30 tab 06/30/18 tablet,extended release docusate sodium 250 mg PO DAILY #20 cap 07/08/18 ibuprofen 600 mg PO Q6HR PRN #30 tab 07/08/18 oxycodone-acetaminophen 2 tab PO Q4HR PRN #20 tab 07/08/18 gabapentin 300 mg capsule 600 mg PO BEDTIME #60 cap 09/10/18 hydrocortisone 2.5 % topical cream 1 applictn NH Q12H PRN #30 gram 09/10/18 with perineal applicator bupropion HCl SR 150 mg tablet,12 150 mg PO BID #60 tab 09/11/18 hr sustained-release tramadol 50 mg tablet 100 mg PO Q6H #120 tab 01/09/19 citalopram 40 mg tablet 40 mg PO Q DAY #90 tab 03/02/19 levothyroxine 75 mcg tablet 75 mcg PO QDAY #90 tab 03/11/19 hydrocodone-acetaminophen [Brinklow] 1 tab PO Q6H PRN #5 tab 03/14/19 prednisone 40 mg PO DAILY 2 Days #4 tab 03/14/19 Allergies Allergy/AdvReac Type Severity Reaction Status Date / Time ketorolac [From TORADOL] Allergy Intermediate vomiting Verified 09/10/18 16:17 clindamycin [CLINDAMYCIN] Allergy Mild rash/itchy Verified 09/10/18 16:17 Review of Systems <RODERICK Alcazar - Last Filed: 03/14/19 21:24> Review of Systems REVIEW OF SYSTEMS: GENERAL: Denies fever or chills. HENT: No head trauma, hearing loss or sore throat. EYES: No loss of vision, double vision, eye pain, or irritation. CARDIOVASCULAR: No chest pain or syncope. RESPIRATORY: No shortness of breath or cough. GASTROINTESTINAL: No nausea, vomiting, diarrhea, or constipation. GENITOURINARY: No flank pain or dysuria. MUSCULOSKELETAL: Complains of back pain, see HPI. INTEGUMENTARY: No rash, lesions, or pruritus. NEURO: No numbness, tingling, memory loss, or confusion. PSYCH: No behavior or mood changes. PFSH <RODERICK Alcazar - Last Filed: 03/14/19 21:24> Medical History Depression (Chronic) Migraines (Chronic) Abnormal Pap smear of cervix (Resolved) Surgical History History of third molar tooth extraction (Resolved) Status post wrist surgery (Resolved) Social History Smoking Status: Unknown if ever smoked Social History Smoking Status: Unknown if ever smoked Exam <RODERICK Alcazar - Last Filed: 03/14/19 21:24> Initial Vital Signs Initial Vital Signs: Vital Signs Temperature 97.7 F 03/14/19 17:40 Pulse Rate 98 H 03/14/19 17:40 Respiratory Rate 16 03/14/19 17:40 Blood Pressure 113/67 03/14/19 17:40 Pulse Oximetry 98 03/14/19 17:40 PHYSICAL EXAMINATION: GENERAL: Well groomed, alert, and cooperative. Answers questions promptly and appropriately. Vital signs noted. HENT: Normocephalic, atraumatic. EYES: conjunctiva pink, sclera white, no periorbital swelling. NECK: Full range of motion, no pain with palpation. CHEST: Normal to inspection and without deformities. CARDIOVASCULAR: S1 and S2 sounds normal. Regular rate and rhythm, no murmurs, clicks, or bruits. No pedal edema. RESPIRATORY: Normal respiratory rate, trachea midline, airway patent. No stridor, nasal flaring or accessory muscle use. Lungs are clear in all hoskins without wheeze, rhonchi, or crackles. MUSCULOSKELETAL: Patient has a limp due to pain in her back. Paraspinal tenderness to upper portion of lumbar region slight tenderness to intervertebral space around L3, tenderness of the right hip. Positive straight leg test. Equal sensation bilaterally. Equal tone and mass bilaterally. EXTREMITIES: CMS intact. Full range of motion and 5/5 strength to upper and lower extremities SKIN: Warm, dry, soft, appropriate color for ethnicity. No lesions, rashes, or wounds. NEURO: Alert and Oriented X 3. Good coordination. No ataxia, or sensory deficits, or cognitive issues. PSYCH: Appropriate affect and mood. <Jenny Gan DO - Last Filed: 03/15/19 09:34> Initial Vital Signs Initial Vital Signs: Vital Signs Temperature 97.7 F 03/14/19 17:40 Pulse Rate 98 H 03/14/19 17:40 Respiratory Rate 16 03/14/19 17:40 Blood Pressure 113/67 03/14/19 17:40 Pulse Oximetry 98 03/14/19 17:40 Course <RODERICK Alcazar - Last Filed: 03/14/19 21:24> Course Narrative: Had an extensive conversation with patient about options for back pain medications without be appropriate for . Spoke with patient that imaging for back spasm for herniated disc would not change the plan of care for even show up on the x-ray. Discussed that follow-up was appropriate, however patient verbalized that she does not have insurance. Orders Ordered: Discontinued Medications Hydrocodone Bitart/Acetaminophen (Vicodin Prepack) 1 bottle MISC SEEINSTR ONE Stop: 03/14/19 19:31 Last Admin: 03/14/19 20:08 Dose: 1 bottle Prednisone (Deltasone) 40 mg PO NOW ONE Stop: 03/14/19 19:31 Last Admin: 03/14/19 20:08 Dose: 40 mg Consultations Consultation #1: Patient staffed with Dr. Harris. Vital Signs - 8 hr 03/14/19 17:40 Temperature 97.7 F Pulse Rate 98 H Respiratory Rate 16 Blood Pressure 113/67 Pulse Oximetry 98 <Jenny Gan DO - Last Filed: 03/15/19 09:34> Orders Ordered: Discontinued Medications Hydrocodone Bitart/Acetaminophen (Vicodin Prepack) 1 bottle MISC SEEINSTR ONE Stop: 03/14/19 19:31 Last Admin: 03/14/19 20:08 Dose: 1 bottle Prednisone (Deltasone) 40 mg PO NOW ONE Stop: 03/14/19 19:31 Last Admin: 03/14/19 20:08 Dose: 40 mg Vital Signs - 8 hr 03/14/19 17:40 Temperature 97.7 F Pulse Rate 98 H Respiratory Rate 16 Blood Pressure 113/67 Pulse Oximetry 98 MDM - Back Pain/Injury <RODERICK Alcazar - Last Filed: 03/14/19 21:24> Medical Records Attestation: I reviewed the patient's medical records. Lab Data Attestation: I reviewed the patient's lab results. MDM Narrative Medical decision making narrative: Unsure exact cause of patient's pain however I suspect that due to mechanism of injury, location of pain, and exam that patient is experiencing a back spasm. It is additionally possible that she has a herniated disc history reports multiple back injuries requiring steroid injections. However imaging would not help with the plan of care. Discussed with patient following up for further testing and or physical therapy. Additionally discussed with patient that her allergies and the fact that she is breast-feeding limits what we can prescribe her. 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 We discussed that she will need to not breastfeed while she is taking this medication or drive as this can make her drowsy. Less likely infection due to lack of fevers or other systemic symptoms, less likely fracture due to lack of trauma, less likely cauda equina due to lack of pelvic paresthesias or loss of bowel or bladder control. Discharge Plan Departure Patient Disposition: Home Clinical Impression: Lumbar back pain Discharge Date/Time: 03/14/19 20:21 Interventions: ED Discharge Assessment Last Done: 03/14/19 20:20 Instructions: DI for Sciatica, DI for Back Spasm Activity Restrictions/Additional Instructions: Thank you for entrusting me with your care today. As discussed, it appears your back pain is from a back spasm that is aggravating your sciatica. Additionally I cannot rule out a herniated disc this does not show up on x-rays, few symptoms persist I recommend following up with your primary care provider for discussion about further testing and or physical therapy. I prescribed you prednisone, please take this after you breastfeed and wait 4 hours before again. I Have also prescribed you a narcotic pain medication as requested, please pump and dump after using this medication, do not drive with this medication is a can make you drowsy. Return to the emergency department if he develops chest pain, shortness of breath, fevers that are not controlled with Tylenol ibuprofen, or blood in her stool. Prescriptions: New hydrocodone-acetaminophen [Brinklow] 5-325 mg tablet 1 tab PO Q6H PRN (Reason: pain) Qty: 5 RF: 0 prednisone 20 mg tablet 40 mg PO DAILY 2 Days Qty: 4 RF: 0 No Action nifedipine 30 mg tablet extended release 30 mg PO BID Qty: 30 RF: 1 gabapentin 300 mg capsule 600 mg PO BEDTIME Qty: 60 RF: 1 bupropion HCl [Wellbutrin SR] 150 mg tablet sustained-release 12 hr 150 mg PO BID Qty: 60 RF: 5 tramadol 50 mg tablet 100 mg PO Q6H Qty: 120 RF: 0 citalopram 40 mg tablet 40 mg PO Q DAY Qty: 90 RF: 0 levothyroxine [Synthroid] 75 mcg tablet 75 mcg PO QDAY Qty: 90 RF: 4 hydrocortisone [Anusol-HC] 2.5 % cream with perineal applicator 1 applictn NH Q12H PRN (Reason: hemorrhoids) Qty: 30 RF: 2 hydroxyzine HCl 50 mg tablet 50 mg PO QID PRN (Reason: nausea and vomiting) Qty: 120 RF: 0 acetaminophen [Tylenol Extra Strength] 500 mg tablet 1,000 mg PO Q6H PRN (Reason: pain) Qty: 120 RF: 1 lidocaine 5 % adhesive patch,medicated 1 patch TOP DAILY Qty: 15 RF: 0 oxycodone-acetaminophen 5-325 mg Tablet 2 tab PO Q4HR PRN (Reason: Pain, Moderate (4-6)) Qty: 20 RF: 0 ibuprofen 600 mg Tablet 600 mg PO Q6HR PRN (Reason: Pain, Mild (1-3)) Qty: 30 RF: 0 docusate sodium 250 mg Capsule 250 mg PO DAILY Qty: 20 RF: 0 Referrals: Trinidad Ta DO [Primary Care Provider] - <Jenny Gan DO - Last Filed: 03/15/19 09:34> Cosign ED Attending Chris Attestation: I was immediately available in the department for consultation. Documentation has been reviewed. I agree with assessment and plan.
[2019-03-14] MEDS: predniSONE 20 MG TABLET 40 MG PO (20:08)
[2019-03-14] MEDS: HYDROCODONE/ACET 5/325 PREPACK 1 BOTTLE MISC (20:08)
--- NOTE | 2019-03-14 20:18 | PC.NURSE ---
Patient home with PP for [place] and Prednisone. Pt verbalizes understanding of instructions. Ambulatory from ED.
== END 2019-03-14 20:21 | disposition home or self-care (01) ==
PROVIDERS: Emergency Provider Nurse Practitioner; PCP Family Medicine
DX: M54.5 Low back pain (principal); X50.9XXA Other and unspecified overexertion or strenuous movements or postures, initial encounter
CPT/HCPCS: 99282; 99283

== ENCOUNTER → 2019-04-13 18:35 | Outpatient (CLI) | payer OTHER, MEDICAID, SELFPAY ==
--- NOTE | 2019-04-13 18:37 | DI.MRI.S_ITS ---
PROCEDURE: MR LUMBAR SPINE WO CON INDICATIONS: lumbar pain with radic TECHNIQUE: Noncontrast sagittal T1 spin echo and T2 fast echo, sagittal STIR, axial T1 and T2 fast spin echo through the lumbar spine. In cases with scoliosis, additional coronal T2 fast spin echo may be performed. COMPARISON: [facility], CR, XR LUMBAR SPINE MIN 4V, 04/13/2019, 18:57. [facility], MR, L-SPINE WITHOUT CONTRAST, 08/28/2017, 18:01. FINDINGS: Image quality: Excellent. Alignment and Curvature: Reactive endplate changes noted at the L4-L5 disc. Bone Marrow: Marrow is of normal overall signal. No acute vertebral body compression fractures. Spinal Cord: Conus medullaris terminates at the L1 level. Visualized cord demonstrates normal signal and size. Paraspinous Soft Tissues: No paravertebral masses. L1-L2: Normal appearance. L2-L3: Normal appearance. L3-L4: Normal appearance. L4-L5: Loss of disc signal. Mild, diffuse disc bulge there moderate-sized central disc protrusion. Mild narrowing of the central canal. Mild bilateral neural foraminal narrowing. No neural impingement. L5-S1: Loss of disc signal. Mild, diffuse disc bulge. No central stenosis. No neural frontal narrowing. No neural impingement. IMPRESSION: 1. Mild L4-L5 and L5-S1 degenerative disc disease. 2. Mild L4-L5 central canal narrowing. 3. Mild bilateral L4-L5 neural foraminal narrowing. 4. No neural impingement. Dictated by: Clare Del Rio MD, PhD on 04/14/2019 at 11:46 Approved by: Clare Del Rio MD, PhD on 04/14/2019 at 11:57
--- NOTE | 2019-04-13 18:37 | DI.RAD.S_ITS ---
PROCEDURE: XR LUMBAR SPINE MIN 4V INDICATIONS: lumbar pain with radic TECHNIQUE: 5 views of the lumbar spine were acquired. COMPARISON: None. FINDINGS: Bones: 5 nonrib-bearing vertebrae are present. There is normal bony alignment. No vertebral body compression fractures. No suspicious bony lesions. Soft tissues: Overlying bowel gas pattern is normal. No suspicious soft tissue calcifications. Oblique images: No pars defects. IMPRESSION: No acute radiographic findings. No spondylolysis or spondylolisthesis. Dictated by: Cecy Zaldivar M.D. on 04/14/2019 at 9:43 Approved by: Cecy Zaldivar M.D. on 04/14/2019 at 9:44
== END ==
PROVIDERS: PCP Family Medicine; Visit Provider Registered Nurse
DX: M51.16 Intervertebral disc disorders with radiculopathy, lumbar region (principal); M51.17 Intervertebral disc disorders with radiculopathy, lumbosacral region; M48.061 Spinal stenosis, lumbar region without neurogenic claudication; M46.96 Unspecified inflammatory spondylopathy, lumbar region
CPT/HCPCS: 72110; 72148

== ENCOUNTER 2019-06-02 13:02 | Outpatient (CLI) | payer OTHER, MEDICAID, SELFPAY ==
[2019-06-02] VITALS (11 sets, daily range): BP systolic 94–138; BP diastolic 40–74; PULSE 69–84; RESP 14–18; TEMP 36.8; O2SAT 94–98
--- NOTE | 2019-06-02 13:04 | DI.RAD.S_ITS ---
PROCEDURE: PAIN L/S TRANSFORAMINAL INJECT INDICATIONS: INTERVERTEBRAL DISC DISPLACEMENT FINDINGS: Fluoroscopic spot filming was performed to verify placement of spinal needles at the L4-5 transforaminal level, as labeled on the films. Appropriate location(s) of the needle tip(s) was confirmed by injection of iodinated contrast. IMPRESSION: Successful L4-5 right-sided neural foraminal needle tip localization for steroid injection. Dictated by: Luis Felipe Del Castillo M.D. on 06/02/2019 at 14:48 Approved by: Luis Felipe Del Castillo M.D. on 06/02/2019 at 14:48
[2019-06-02] MEDS: MIDAZOLAM 5 MG/5 ML VIAL IV (14:08)
[2019-06-02] MEDS: fentaNYL 100 MCG/2 ML INJ 50 MCG IV (14:08)
[2019-06-02] MEDS: IOPAMIDOL 15 ML VIAL 3 ML INJ (14:19)
[2019-06-02] MEDS: BUPIVACAINE 0.25% (PF) VIAL 2 ML INJ (14:20)
[2019-06-02] MEDS: DEXAMETHASONE 10 MG/ML VIAL 20 MG INJ (14:20)
[2019-06-02] MEDS: BETAMETHASONE 30 MG/5 ML MDV 6 MG INJ (14:20)
--- NOTE | 2019-06-02 14:21 | PC.NURSE ---
Post procedure transfer note: Patient tolerated procedure well. VSS during procedure. O2 sat WNL, Easily arousable post procedure. Sat up on table without difficulty. Patient transferred self from procedure table to wheelchair. Gait steady. Transported to Post procedure for monitoring and discharge. Handoff report given to Barbara Albrecht RN.
--- NOTE | 2019-06-02 14:22 | P.PCN_ITS ---
Procedures Date/Time Date of procedure: 06/02/19 Time of procedure: 14:22 General Procedure description: PREOP DIAGNOSIS 1. FORMAINAL STENOSIS WITH LE SYMPTOMS POST OP DIAGNOSIS 1. FORMAINAL STENOSIS WITH LE SYMPTOMS PROCEDURES 1. FLUOROSCOPICALLY GUIDED CONTRAST CONTROLLED TRANSFORAMINAL EPIDURAL STEROID INJECTION - RIGHT L4/5 TFESI PHYSICIAN: Godwin Banda DO INDICATIONS: Arleen is referred by for treatment of Foraminal Stenosis with Right LE Symptoms FINDINGS Foraminal Nerve Root Compression secondary to disc disease and facet hypertrophy DESCRIPTION OF PROCEDURE: Following review of allergy and review of potential side effects and complications, including, but not necessarily limited to, infection, allergic reaction, local tissue breakdown, stroke, temporary or permanent nerve injury, paralysis, and possible , the patient indicated that the patient understood and agreed to proceed. An informed consent document was signed by the patient, witnessed by a nurse, and placed in the patient's chart. Additionally, other treatment options including medications, modalities, and physical therapy were reviewed with the patient. After review of previous anaesthesic history and IV conscious sedation the patient was deemed safe to proceed with todays procedure with IV conscious sedation as ASA class II designation. Safety time-out was performed to confirm patient ID, procedure to be performed and site of procedure. IV sedation was accomplished with a combination of 3mg of Versed and 50mcg of Fentanyl was administered by the RN after DO order, titrated to patient comfort during the course of the procedure while the patient remained responsive to all verbal commands In the prone position following sterile prep and drape of the lumbar region, the Right L4/5 posterior neuroforamen was identified fluoroscopically. The skin was anesthetized via a 25-gauge 1.5-inch needle with 1% lidocaine solution. At this point, a 25-gauge 3.5-inch spinal needle was atraumatically introduced and ad vanced under fluoroscopic guidance through the posterior Right L4/5 neuroforamen to approximately the anterior aspect of the canal. Depth was confirmed on lateral view. Following negative aspiration, injection of approximately 1.5 cc of Isovue 200 under live fluoroscopy in the AP view confirmed excellent flow along the nerve root, into the epidural space without vascular or intrathecal uptake observed Radiological data, including multiple fluoroscopic views of the lumbosacral spine, reveal a spinal needle at the right L4/5 posterior neuroforamen. Subsequent views show flow of contrast material flowing superiorly and inferiorly along the nerve root confirming epidural flow. Subsequently, a test dose of 1.5 cc of 1% lidocaine solution was administered and patient was observed for two minutes for signs or symptoms of complications, including abdominal pain, shortness of breath, bilateral upper or lower extremity weakness, nausea and vomiting, prior to steroid injection. At this point, a total of 3cc or 20mg of dexamethasone and 6mg of betamethasone was injected without incident. The procedure tolerated the procedure well without signs or symptoms of complications prior to transfer to the recovery area continued monitoring without incident.The patient was then transferred to the recovery area where they were observed for an appropriate time after the injection. The patient reported a VAS score of 7 prior to the procedure and a post- procedure VAS of 0. Total Fluoroscopy Time: 20.9 seconds Total Conscious Sedation Time: 24min POST OP INSTRUCTIONS The patient was provided a Pain Log to continue to record their response to the target-specific procedure prior to follow-up visit with their referring physician. Additionally, specific post-injection care instructions and a contact number to our office were provided if concerns arise regarding possible complications associated with the procedure are suspected. Godwin Banda, Complications: none
--- NOTE | 2019-06-02 15:33 | PC.NURSE ---
1425 arrived via w/c post procedure, able to transfer self from w/c to recliner without assist, resuming care from Shruti maria, ice water and cookies given, tolerated well.
--- NOTE | 2019-06-02 15:36 | PC.NURSE ---
tolerating drinking water.
--- NOTE | 2019-06-02 15:38 | PC.NURSE ---
states, back pain at 8/10 at this time.
== END 2019-06-02 15:01 | disposition home or self-care (01) ==
LOC: RAD 13:03
PROVIDERS: PCP Family Medicine; Visit Provider Physical Medicine & Rehabilitation
DX: M48.061 Spinal stenosis, lumbar region without neurogenic claudication (principal); M51.16 Intervertebral disc disorders with radiculopathy, lumbar region
CPT/HCPCS: 64483; J0702; J1100; J2250; J3010

== ENCOUNTER 2019-09-03 14:42 | Outpatient (CLI) | payer OTHER, MEDICAID, SELFPAY ==
[2019-09-03] VITALS (8 sets, daily range): BP systolic 89–102; BP diastolic 54–68; PULSE 77–85; RESP 16; TEMP 36.6; O2SAT 97–100
--- NOTE | 2019-09-03 14:43 | DI.RAD.S_ITS ---
PROCEDURE: PAIN L/S TRANSFORAMINAL INJECT INDICATIONS: INTERVERTEBRAL DISC DISPLACEMENT FINDINGS: Fluoroscopic spot filming was performed to verify placement of spinal needles at the L4-L5 level(s), as labeled on the films. Appropriate location(s) of the needle tip(s) was confirmed by injection of iodinated contrast. IMPRESSION: Fluoroscopy for pain management. Dictated by: Jewels Esqueda M.D. on 09/03/2019 at 15:43 Approved by: Jewels Esqueda M.D. on 09/03/2019 at 15:43
--- NOTE | 2019-09-03 15:02 | PC.NURSE ---
provider and Shruti rn made aware of pts bp.
[2019-09-03] MEDS: MIDAZOLAM 5 MG/5 ML VIAL IV (15:09)
[2019-09-03] MEDS: BETAMETHASONE 30 MG/5 ML MDV 6 MG INJ (15:14)
[2019-09-03] MEDS: BUPIVACAINE 0.25% (PF) VIAL 2 ML INJ (15:14)
[2019-09-03] MEDS: DEXAMETHASONE 10 MG/ML VIAL 20 MG INJ (15:14)
[2019-09-03] MEDS: IOPAMIDOL 15 ML VIAL 3 ML INJ (15:14)
--- NOTE | 2019-09-03 15:17 | PC.NURSE ---
ASSISTING PT OFF TABLE AND TRANSPORTING TO POST PROC AREA IN STABLE CONDITION. PASSING RN CARE OF PT TO RIP Liu RN.
--- NOTE | 2019-09-03 15:21 | P.PCN_ITS ---
Procedures Date/Time Date of procedure: 09/03/19 Time of procedure: 15:21 General Procedure description: PREOP DIAGNOSIS 1. FORMAINAL STENOSIS WITH LE SYMPTOMS POST OP DIAGNOSIS 1. FORMAINAL STENOSIS WITH LE SYMPTOMS PROCEDURES 1. FLUOROSCOPICALLY GUIDED CONTRAST CONTROLLED TRANSFORAMINAL EPIDURAL STEROID INJECTION - LEFT L4/5 PHYSICIAN: Godwin Banda DO INDICATIONS: Arleen is referred by Dr. Ta for treatment of Foraminal Stenosis with Left LE Symptoms FINDINGS Foraminal Nerve Root Compression secondary to disc disease and facet hypertrophy DESCRIPTION OF PROCEDURE: Following review of allergy and review of potential side effects and complications, including, but not necessarily limited to, infection, allergic reaction, local tissue breakdown, stroke, temporary or permanent nerve injury, paralysis, and possible , the patient indicated that the patient understood and agreed to proceed. An informed consent document was signed by the patient, witnessed by a nurse, and placed in the patient's chart. Additionally, other treatment options including medications, modalities, and physical therapy were reviewed with the patient. After review of previous anaesthesic history and IV conscious sedation the patient was deemed safe to proceed with todays procedure with IV conscious sedation as ASA class II designation. Safety time-out was performed to confirm patient ID, procedure to be performed and site of procedure. IV sedation was accomplished with a combination of 2mg of Versed administered by the RN after DO order, titrated to patient comfort during the course of the procedure while the patient remained responsive to all verbal commands In the prone position following sterile prep and drape of the lumbar region, the left L4/5 posterior neuroforamen was identified fluoroscopically. The skin was anesthetized via a 25-gauge 1.5-inch needle with 1% lidocaine solution. At this point, a 25-gauge 3.5-inch spinal needle was atraumatically introduced and advanced under fluoroscopic guidance through the posterior left L4/5 neuroforamen to approximately the anterior aspect of the canal. Depth was confirmed on lateral view. Following negative aspiration, injection of approximately 1.5 cc of Isovue 200 under live fluoroscopy in the AP view confirmed excellent flow along the nerve root, into the epidural space without vascular or intrathecal uptake observed Radiological data, including multiple fluoroscopic views of the lumbosacral spine, reveal a spinal needle at the left L4/5 posterior neuroforamen. Subsequent views show flow of contrast material flowing superiorly and inferio rly along the nerve root confirming epidural flow. Subsequently, a test dose of 1.5cc of 1% lidocaine solution was administered and patient was observed for two minutes for signs or symptoms of complications, including abdominal pain, shortness of breath, bilateral upper or lower extremity weakness, nausea and vomiting, prior to steroid injection. At this point, a total of 3cc or 20mg of dexamethasone and 6mg of betamethasone was injected without incident. The procedure tolerated the procedure well without signs or symptoms of complications prior to transfer to the recovery area continued monitoring without incident. The patient was then transferred to the recovery area where they were observed for an appropriate time after the injection. The patient reported a VAS score of 7 prior to the procedure and a post- procedure VAS of 0. Total Fluoroscopy Time: 20.9 seconds Total Conscious Sedation Time: 24min POST OP INSTRUCTIONS The patient was provided a Pain Log to continue to record their response to the target-specific procedure prior to follow-up visit with their referring physician. Additionally, specific post-injection care instructions and a contact number to our office were provided if concerns arise regarding possible complications associated with the procedure are suspected. Godwin Banda DO Complications: none
--- NOTE | 2019-09-03 15:53 | PC.NURSE ---
at 1521 returned from procedure via w/c, transfer self to reclinerrossi, assuming care from dmitry maria. tolerating drinking water.
== END 2019-09-03 15:45 | disposition home or self-care (01) ==
LOC: RAD 14:43
PROVIDERS: PCP Family Medicine; Visit Provider Physical Medicine & Rehabilitation
DX: M48.061 Spinal stenosis, lumbar region without neurogenic claudication (principal); M51.16 Intervertebral disc disorders with radiculopathy, lumbar region
CPT/HCPCS: 64483; 99152; J0702; J1100; J2250; J3010

== ENCOUNTER → 2019-11-09 09:26 | Outpatient (CLI) | payer OTHER, MEDICAID, SELFPAY ==
[2019-11-09 10:13] LABS: Add Manual Diff / Slide Review NO; Basophils Absolute Auto 0 /uL (0-100); Basophils Percent Auto 0.6 % (0-2); Eosinophils Absolute Auto 0 /uL (0-450); Eosinophils Percent Auto 0.8 % (2-4); Hematocrit 38.1 % (36-46); Hemoglobin 12.6 g/dL (12.0-16.0); Lymphocytes Absolute Auto 1700 /uL (1100-4500); Lymphocytes Percent Auto 32.5 % (25-40); Mean Corpuscular HGB Conc 33.1 % (30-36); Mean Corpuscular Hemoglobin 29.2 PG (26-34); Monocytes Absolute Auto 400 /uL (0-900); Monocytes Percent Auto 6.9 % (3-14); Neutrophils Absolute Auto 3100 /uL (1500-7000); Neutrophils Percent Auto 59.2 % (50-75); Platelet Count 205 X10^3/uL (150-400); Red Blood Cell Count 4.33 X10^6/uL (4.0-5.2); Red Cell Distribution Width 13.5 % (11.6-14.8); White Blood Cell Count 5.2 X10^3/uL (4.5-11.0)
[2019-11-09 10:57] LABS: Alanine Aminotransferase 17 IU/L (<35); Albumin 4.1 g/dL (3.5-5.0); Albumin Globulin Ratio 1.5 (1.0-2.8); Alkaline Phosphatase 88 U/L (38-126); Aspartate Aminotransferase 21 IU/L (14-36); BUN Creatinine Ratio 8.6 (6-22); Bilirubin Total 0.2 mg/dL (0.2-1.3); Blood Urea Nitrogen 6 mg/dL (7-17); Calcium 9.2 mg/dL (8.4-10.2); Carbon Dioxide 26 mmol/L (22-32); Chloride 106 mmol/L (98-107); Estimated Glomerular Filt Rate > 60.0 mL/min (>60); Globulin 2.8 g/dL (1.7-4.1); Glucose 74 mg/dL (70-100); HEMOLYSIS < 15 (0-50); Potassium 4.4 mmol/L (3.4-5.1); Sodium 141 mmol/L (137-145); Total Protein 6.9 g/dL (6.3-8.2)
[2019-11-09 11:10] LABS: Free T3, Triiodothyronine Free 3.22 pg/mL (2.77-5.27); Free T4, Direct Thyroxine 0.96 ng/dL (0.78-2.19)
[2019-11-09 11:24] LABS: Thyroid Stimulating Hormone 2.06 uIU/mL (0.47-4.68)
== END ==
PROVIDERS: PCP Family Medicine; Referring Provider Family Medicine; Visit Provider Family Medicine
DX: D64.9 Anemia, unspecified (principal); E03.9 Hypothyroidism, unspecified; Z79.891 Long term (current) use of opiate analgesic
CPT/HCPCS: 36415; 80053; 84439; 84443; 84481; 85025

== ENCOUNTER → 2020-03-05 12:51 | Outpatient (ROUT) | payer OTHER, MEDICAID, SELFPAY ==
[2020-03-06 01:04] LABS: COVID19 Sendout Not Detected (Not Detect)
== END ==
PROVIDERS: PCP Family Medicine; Visit Provider Physician Assistant
DX: Z01.812 Encounter for preprocedural laboratory examination (principal)
CPT/HCPCS: 87635

== ENCOUNTER 2020-03-08 09:46 | Outpatient (CLI) | payer OTHER, MEDICAID, SELFPAY ==
[2020-03-08 10:00] VITALS: BP 100/65; PULSE 856; RESP 16; TEMP 37.2; O2SAT 99
--- NOTE | 2020-03-08 11:17 | PC.NURSE ---
pt arrived for L4-5 translaminar ITA. Upon intake it was discovered that the pt was being treated for a current UTI having just starting on ABX 03/07. Dip test was ran and pt was positive for an infection, UAC was then ordered by and sample sent to Lab for further analysis.
--- NOTE | 2020-03-08 11:23 | PC.NURSE ---
After further discussion with pt it was determined procedure would be canceled until after UAC was reported. Hopefully pt will be reschd for 03/10
== END 2020-03-08 11:00 | disposition home or self-care (01) ==
LOC: RAD 09:46
PROVIDERS: PCP Family Medicine; Referring Provider Physical Medicine & Rehabilitation; Visit Provider Physical Medicine & Rehabilitation
DX: M48.07 Spinal stenosis, lumbosacral region (principal); M51.26 Other intervertebral disc displacement, lumbar region; N39.0 Urinary tract infection, site not specified
CPT/HCPCS: 87086; J0702; J1100; J2250; J3010

== ENCOUNTER → 2020-03-18 13:02 | Outpatient (CLI) | payer OTHER, MEDICAID, SELFPAY ==
[2020-03-18 13:20] LABS: Appearance Urine UA CLEAR; Bilirubin Urine UA NEGATIVE (NEGATIVE); Color Urine UA YELLOW; Glucose Urine UA NEGATIVE (Negative); Ketones Urine UA NEGATIVE (NEGATIVE); Leukocyte Esterase Urine UA NEGATIVE (NEGATIVE); Nitrite Urine UA NEGATIVE (Negative); Occult Blood Urine UA 2+ (Negative); Protein Urine UA NEGATIVE (Negative); Urobilinogen Urine UA 0.2 E.U./dL (0.2)
[2020-03-18 13:22] LABS: Bacteria Urine None Seen; WBC Urine None Seen (0-5/HPF)
[2020-03-18 13:39] LABS: Culture Indicated Urine Cult Not Indicated; RBC Urine 0-1/HPF (0-5/HPF); Squamous Epithelial Cell Urine 1-5 /HPF (0-5/HPF)
== END ==
PROVIDERS: PCP Family Medicine; Referring Provider Family Medicine; Visit Provider Family Medicine
DX: N39.0 Urinary tract infection, site not specified (principal)
CPT/HCPCS: 81003; 81015

== ENCOUNTER → 2020-03-21 10:40 | Outpatient (CLI) | payer OTHER, MEDICAID, SELFPAY ==
[2020-03-22 15:32] LABS: COVID19 Sendout NOT DETECTED (Not Detect)
== END ==
PROVIDERS: PCP Family Medicine; Visit Provider Physician Assistant
DX: Z01.812 Encounter for preprocedural laboratory examination (principal)
CPT/HCPCS: 87635

== ENCOUNTER 2020-03-24 09:45 | Outpatient (CLI) | payer OTHER, MEDICAID, SELFPAY ==
[2020-03-24] VITALS (10 sets, daily range): BP systolic 100–119; BP diastolic 52–72; PULSE 73–84; RESP 14–16; O2SAT 97–100
--- NOTE | 2020-03-24 10:22 | DI.RAD.S_ITS ---
PROCEDURE: PAIN L INTERLAMINAR/CAUDAL INJ INDICATIONS: SPONDYLOSIS FINDINGS: Fluoroscopic spot filming was performed to verify placement of spinal needles at the L4-L5 interlaminar notch area level(s), as labeled on the films. Appropriate location(s) of the needle tip(s) was confirmed by injection of iodinated contrast. IMPRESSION: Successful dorsal interlaminar notch area needle tip localization for epidural steroid injection. Dictated by: Luis Felipe Del Castillo M.D. on 03/24/2020 at 16:19 Approved by: Luis Felipe Del Castillo M.D. on 03/24/2020 at 16:20
[2020-03-24] MEDS: MIDAZOLAM 5 MG/5 ML VIAL IV (10:54)
[2020-03-24] MEDS: fentaNYL 100 MCG/2 ML INJ 50 MCG IV (10:54)
[2020-03-24] MEDS: BUPIVACAINE 0.25% (PF) VIAL 2 ML INJ (10:58)
[2020-03-24] MEDS: IOPAMIDOL 15 ML VIAL 3 ML INJ (10:58)
[2020-03-24] MEDS: DEXAMETHASONE 10 MG/ML VIAL 20 MG INJ (10:59)
[2020-03-24] MEDS: BETAMETHASONE 30 MG/5 ML MDV 6 MG INJ (10:59)
--- NOTE | 2020-03-24 11:14 | P.PCN_ITS ---
Date/Time/Diagnoses Date of procedure: 03/24/20 Time of procedure: 11:14 Pre-procedure diagnosis: 1. HNP WITH RADICULAR FEATURES, 2. MULTILEVEL CENTRAL STENOSIS, Post-procedure diagnosis: same Procedure Notes Procedure: 1. FLUOROSCOPICALLY GUIDED CONTRAST CONTROLLED INTERLAMINAR EPIDURAL STEROID INJECTION -L4/5 Indications: Arleen is referred by for treatment of Bilateral Foraminal Stenosis R>L LE symptoms. Physician: Godwin Banda Total Fluoroscopy time (seconds): 8 Total sedation minutes: 24 Complications: none Procedure in detail & Post-procedure care: FINDINGS Multilevel Central Spinal Stenosis with Nerve Root Compression DESCRIPTION OF PROCEDURE Fluoroscopically guided, contrast-controlled L4/5 translaminar epidural steroid injection. Following review of allergy and review of potential side effects and complications, including, but not necessarily limited to, infection, allergic reaction, local tissue breakdown, temporary as well as permanent nerve injury, paralysis, stroke and possible , the patient indicated that the patient understood and agreed to proceed. An informed consent document was signed by the patient, witnessed by a nurse, and placed in the patient's chart. Additionally, other treatment options including modalities, medications, and physical therapy were reviewed with the patient. After review of previous anaesthesic history and IV conscious sedation the patient was deemed safe to proceed with today?s procedure with IV conscious sedation as ASA class II designation. Safety time-out was performed to confirm patient ID, procedure to be performed and site of procedure. IV sedation was accomplished with a combination of 3mg of Versed and 50mcg of Fentanyl was administered by the RN after DO order, titrated to patient comfort during the course of the procedure while the patient remained responsive to all verbal commands In the prone position, following sterile prep and drape of the lumbar region, the L4/5 translaminar space was identified fluoroscopically. The skin was anesthetized via a 25-gauge, 1.5-inch needle with 1% lidocaine solution. At this point, a 22-gauge short bevel spinal needle was atraumatically introduced and advanced under fluoroscopic guidance into the region of the L4/5 translaminar space. Depth was confirmed on lateral view. Radiological data, including multiple fluoroscopic views of the lumbar spine, reveal a spinal needle at the L4/5 translaminar space. Lateral views then show placement of the needle in the epidural space. Subsequent views show contrast material flowing superiorly and inferiorly in the epidural space. No vascular or intrathecal uptake is observed. At this point, using loss of resistance technique with saline and air, the epidural space was entered. This was confirmed following negative aspiration with injection of approximately 1.5 cc of Isovue 200, showing excellent epidural flow without vascular or intrathecal uptake. At this point, 1 cc of 1% lidocaine solution combined with 3cc or 20mg of dexamethasone and 6mg betamethasone was injected without incident. The patient tolerated the procedure well without signs or symptoms of complications prior to transfer to the recovery area continued monitoring without incident. The patient was then transferred to the recovery area where they were observed for an appropriate period of time after the injection. The patient reported a VAS score of 7 prior to the procedure and a post- procedure VAS of 0. POST OP INSTRUCTIONS The patient was provided a Pain Log to continue to record their response to the target-specific procedure prior to follow-up visit with their referring physician. Additionally, specific post-injection care instructions and a contact number to our office were provided if concerns arise regarding possible complications associated with the procedure are suspected.
--- NOTE | 2020-03-24 11:49 | PC.NURSE ---
1117: pt arrived to pre proc room via. Stable on transfer from wc to chair. Monitoring resumed by this rn.
--- NOTE | 2020-03-24 16:18 | PC.NURSE ---
Pt tolerated procedure well. Versed and Fentanyl given my RN Blanca, all other meds administered by Dr. Banda. VSS upon transfer to MARIELLA Sifuentes in post procedure room.
== END 2020-03-24 11:45 | disposition home or self-care (01) ==
LOC: RAD 09:45
PROVIDERS: PCP Family Medicine; Referring Provider Physical Medicine & Rehabilitation; Visit Provider Physical Medicine & Rehabilitation
DX: M51.16 Intervertebral disc disorders with radiculopathy, lumbar region (principal); M48.061 Spinal stenosis, lumbar region without neurogenic claudication
CPT/HCPCS: 62323; 99152; J0702; J1100; J2250; J3010

== ENCOUNTER → 2020-06-06 09:02 | Outpatient (CLI) | payer OTHER, MEDICAID, SELFPAY ==
--- NOTE | 2020-06-06 09:04 | DI.US.S_ITS ---
PROCEDURE: US PELVIC COMPLETE INDICATIONS: vaginal spotting TECHNIQUE: Real-time scanning was performed of the pelvic organs, with image documentation. Additional endovaginal scanning was necessary due to incomplete visualization of the adnexal and endometrial structures by transabdominal scanning. COMPARISON: [facility], US, US PELVIC COMPLETE, 09/10/2018, 17:19. FINDINGS: Transabdominal scanning: A mild amount of free pelvic fluid is seen, which is considered to be within physiologic limits. Limited scanning through the kidneys shows no hydronephrosis. Endovaginal scanning: Uterus: Uterus is normal in size at 7.7 x 3.9 x 5.5 cm. The endometrium measures 3 mm in combined thickness. An IUD is seen at its expected location. Ovaries: The right ovary measures 5.8 x 4.3 x 4.3 cm and demonstrates a simple appearing cyst that measures 4.9 x 3.7 x 4 cm. The left ovary measures 2.9 x 1.9 x 1.5 cm. No adnexal masses are seen. IMPRESSION: An IUD can again be seen in the appropriate location. There is a simple appearing cyst seen involving the right ovary that measures up to 4.9 cm. In a patient of this age, this is almost certainly benign. At clinical discretion, a followup pelvic ultrasound is suggested in 6 weeks to assure resolution/ improvement. Dictated by: Pop Bennett M.D. on 06/06/2020 at 9:14 Approved by: Pop Bennett M.D. on 06/06/2020 at 9:15
[2020-06-06 10:42] LABS: BUN Creatinine Ratio 10.9 (6-22); Blood Urea Nitrogen 7 mg/dL (7-17); Carbon Dioxide 30 mmol/L (22-32); Chloride 104 mmol/L (98-107); Estimated Glomerular Filt Rate > 60.0 mL/min (>60); Glucose 85 mg/dL (70-100); HEMOLYSIS < 15 (0-50); Potassium 4.6 mmol/L (3.4-5.1); Sodium 137 mmol/L (137-145)
[2020-06-06 11:12] LABS: TSH w/ Reflex to FT4 1.46 uIU/mL (0.47-4.68)
== END ==
PROVIDERS: PCP Family Medicine; Referring Provider Family Medicine; Visit Provider Family Medicine
DX: N93.9 Abnormal uterine and vaginal bleeding, unspecified (principal); T83.32XA Displacement of intrauterine contraceptive device, initial encounter; E03.9 Hypothyroidism, unspecified
CPT/HCPCS: 36415; 76856; 80048; 84443

== ENCOUNTER → 2020-06-27 09:36 | Outpatient (CLI) | payer OTHER, MEDICAID, SELFPAY ==
--- NOTE | 2020-06-27 09:37 | DI.MRI.S_ITS ---
PROCEDURE: MR LUMBAR SPINE WO CON INDICATIONS: RADICULOPATHY TECHNIQUE: Noncontrast sagittal T1 spin echo and T2 fast echo, sagittal STIR, axial T1 and T2 fast spin echo through the lumbar spine. In cases with scoliosis, additional coronal T2 fast spin echo may be performed. COMPARISON: [facility], MR, MR LUMBAR SPINE WO CON, 04/13/2019, 18:41. FINDINGS: Image quality: Excellent. Alignment and Curvature: Trace retrolisthesis of L4 on L5. Bone Marrow: Marrow is of normal overall signal. No acute vertebral body compression fractures. Spinal Cord: Conus medullaris terminates at the L1 level. Visualized cord demonstrates normal signal and size. Paraspinous Soft Tissues: No paravertebral masses. Discs: Moderate desiccation is present at L4-5, L5-S1. L1-L2: Minimal disc bulge without spinal stenosis or foraminal narrowing. L2-L3: Minimal disc bulge without spinal stenosis or foraminal narrowing. Minimal epidural lipomatosis. L3-L4: No disc bulge, spinal stenosis or foraminal narrowing. Minimal epidural lipomatosis. L4-L5: Mild disc bulge with superimposed posterior left paracentral protrusion with small extrusion. There is compromise of the left lateral recess. This appears progressive compared to prior exam. [id number] bilateral foraminal narrowing with facet and ligamentum flavum hypertrophy, slightly progressive L5-S1: Mild disc bulge without spinal stenosis. No foraminal narrowing. No interval change. IMPRESSION: 1. Protrusion with small new superimposed extrusion at L4-5 as above. There is compromise the left lateral recess. Dictated by: Maria Reveles M.D. on 06/27/2020 at 13:01 Approved by: Maria Reveles M.D. on 06/27/2020 at 13:09
== END ==
PROVIDERS: PCP Family Medicine; Referring Provider Family Medicine; Visit Provider Family Medicine
DX: M51.16 Intervertebral disc disorders with radiculopathy, lumbar region (principal); M48.07 Spinal stenosis, lumbosacral region
CPT/HCPCS: 72148

== ENCOUNTER → 2020-09-27 13:50 | Outpatient (CLI) | payer OTHER, MEDICAID, SELFPAY ==
[2020-09-27 14:39] LABS: COVID19 -Nasal RAPID Negative (Negative)
== END ==
PROVIDERS: PCP Family Medicine; Visit Provider Physical Medicine & Rehabilitation
DX: Z01.812 Encounter for preprocedural laboratory examination (principal); Z20.822 Contact with and (suspected) exposure to COVID-19
CPT/HCPCS: 87635; C9803

== ENCOUNTER 2020-09-29 07:22 | Outpatient (CLI) | payer OTHER, MEDICAID, SELFPAY ==
[2020-09-29] VITALS (8 sets, daily range): BP systolic 96–105; BP diastolic 50–62; PULSE 77–88; RESP 15–20; TEMP 36.9; O2SAT 97–100
--- NOTE | 2020-09-29 07:23 | DI.RAD.S_ITS ---
PROCEDURE: PAIN L/S FACET INJ/BLK 1ST TAWANNA COMPARISON: None. INDICATIONS: SPONDYLOSIS FINDINGS: Needle tip localization is present on the right at the L4-5 and L5-S1 facet joints for steroid injection. IMPRESSION: Successful facet joint localization on the right for L4-5 and L5-S1 facet joint injections. Dictated by: Luis Felipe Del Castillo M.D. on 09/29/2020 at 9:31 Approved by: Luis Felipe Del Castillo M.D. on 09/29/2020 at 9:43
[2020-09-29] MEDS: fentaNYL 100 MCG/2 ML INJ 50 MCG IV (08:27)
[2020-09-29] MEDS: MIDAZOLAM 5 MG/5 ML VIAL IV (08:27)
[2020-09-29] MEDS: BUPIVACAINE 0.5% (PF) VIAL 2 ML INJ (08:33)
[2020-09-29] MEDS: IOPAMIDOL 15 ML VIAL 3 ML INJ (08:33)
[2020-09-29] MEDS: LIDOCAINE 1% 20 ML 10 ML INJ (08:34)
[2020-09-29] MEDS: BETAMETHASONE 30 MG/5 ML MDV 12 MG INJ (08:34)
--- NOTE | 2020-09-29 08:45 | P.PCN_ITS ---
Date/Time/Diagnoses Date of procedure: 09/29/20 Time of procedure: 08:45 Pre-procedure diagnosis: 1. 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 FLUOROSCOPICALLY GUIDED CONTRAST CONTROLLED Indications: Arleen is referred by Dr. Ta for treatment of Multilevel Facet Arthropathy with Clinically significant axial LBP Physician: Godwin Banda Total Fluoroscopy time (seconds): 8 Total sedation minutes: 14 Complications: none Procedure in detail & Post-procedure care: FINDINGSFINDINGS Multilevel Facet Arthropathy with Clinically significant axial LBP DESCRIPTION OF PROCEDURE Fluoroscopically guided, contrast-controlled bilateral L4/5, L5/S1 facet joint injections. Following review of allergy and review of potential side effects and complications, including, but not necessarily limited to, infection, allergic reaction, local tissue breakdown, stroke, temporary or permanent nerve injury, paralysis, and possible , the patient indicated that the patient understood and agreed to proceed. An informed consent document was signed by the patient, witnessed by a nurse, and placed in the patient's chart. Additionally, other treatment options including medications, modalities, and physical therapy were reviewed with the patient. After review of previous anaesthesic history and IV conscious sedation the patient was deemed safe to proceed with today?s procedure with IV conscious sedation as ASA class II designation. Safety time-out was performed to confirm patient ID, procedure to be performed and site of procedure. IV sedation was accomplished with a combination of 3mg of Versed and 50mcg of Fentanyl was administered by the RN after DO order, titrated to patient comfort during the course of the procedure while the patient remained responsive to all verbal commands In the prone position, following sterile prep and drape of the lumbar region, the posterior aspect of the L4/5, L5/S1 facet joints were identified fluoroscopically. The skin was anesthetized via a 25-gauge 1.5inch needle with 1% lidocaine solution into the corresponding facet joints. At this point, a 22- gauge 3.5-inch spinal needle was atraumatically introduced and advanced under fluoroscopic guidance into the corresponding facet joints. Following negative aspiration, injections of approximately 0.2cc of Isovue 200 confirmed interar ticular placement without vascular uptake. The identical procedure was then performed at the L4/5, L5/S1 facet joints on the left. Radiological data, including multiple fluoroscopic views of the lumbosacral spine, reveal a spinal needle at the L4/5, L5/S1 facet joints bilaterally. Subsequent views show flow of contrast material both superiorly and inferiorly within the joint space without vascular or intrathecal uptake. At this point, a total of 0.5cc including a mixture of 0.25cc Marcaine and 0.25cc betamethasone was injected without complication into each of the corresponding facet joints. The patient tolerated the procedure well without signs or symptoms of complications prior to transfer to the recovery area continued monitoring without incident. The patient was then transferred to the recovery area where they were observed for an appropriate period of time after the injection. The patient reported a VAS score of 7 prior to the procedure and a post- procedure VAS of 0. POST OP INSTRUCTIONS The patient was provided a Pain Log to continue to record their response to the target-specific procedure prior to follow-up visit with their referring physician. Additionally, specific post-injection care instructions and a contact number to our office were provided if concerns arise regarding possible complications associated with the procedure are suspected.
== END 2020-09-29 09:00 | disposition home or self-care (01) ==
LOC: RAD 07:23
PROVIDERS: PCP Family Medicine; Referring Provider Family Medicine; Visit Provider Physical Medicine & Rehabilitation
DX: M47.816 Spondylosis without myelopathy or radiculopathy, lumbar region (principal); M47.817 Spondylosis without myelopathy or radiculopathy, lumbosacral region; M54.5 Low back pain
CPT/HCPCS: 64493; 64494; 99152; J0702; J2250; J3010

== ENCOUNTER → 2020-11-07 17:25 | Outpatient (CLI) | payer OTHER, MEDICAID, SELFPAY ==
--- NOTE | 2020-11-07 17:27 | DI.RAD.S_ITS ---
PROCEDURE: XR LUMBAR SPINE MIN 4V INDICATIONS: INCREASED BACK PAIN TECHNIQUE: 5 views of the lumbar spine were acquired, including bilateral oblique views. COMPARISON: [facility], CR, XR LUMBAR SPINE MIN 4V, 04/13/2019, 18:57. FINDINGS: Bones: 5 nonrib-bearing vertebrae are present. There is normal bony alignment. No vertebral body compression fractures. No suspicious bony lesions. Note is made of a slight degree of degenerative disc height reduction, little if any changed from 04/13/19. Mild facet osteoarthritis is present at L4-5 and L5-S1. Soft tissues: Overlying bowel gas pattern is normal. No suspicious soft tissue calcifications. Oblique images: No pars defects. IMPRESSION: A mild degree of degenerative disc disease is present over the lower 2 levels of the LS spine and facet osteoarthritis is mild in this area also. Incidental note is made of a centrally positioned IUD. No compression fracture or subluxation found. Dictated by: Luis Felipe Del Castillo M.D. on 11/07/2020 at 18:30 Approved by: Luis Felipe Del Castillo M.D. on 11/07/2020 at 18:31
== END ==
PROVIDERS: PCP Family Medicine; Referring Provider Physical Medicine & Rehabilitation; Visit Provider Physical Medicine & Rehabilitation
DX: S39.012A Strain of muscle, fascia and tendon of lower back, initial encounter (principal); M46.96 Unspecified inflammatory spondylopathy, lumbar region; M51.26 Other intervertebral disc displacement, lumbar region; M51.36 Other intervertebral disc degeneration, lumbar region; M51.37 Other intervertebral disc degeneration, lumbosacral region; M47.816 Spondylosis without myelopathy or radiculopathy, lumbar region; M47.817 Spondylosis without myelopathy or radiculopathy, lumbosacral region
CPT/HCPCS: 72110

== ENCOUNTER → 2020-11-08 13:40 | Outpatient (CLI) | payer OTHER, MEDICAID, SELFPAY ==
[2020-11-08 15:12] LABS: COVID19 -Nasal RAPID Negative (Negative)
== END ==
PROVIDERS: PCP Family Medicine; Visit Provider Physical Medicine & Rehabilitation
DX: Z20.822 Contact with and (suspected) exposure to COVID-19 (principal)
CPT/HCPCS: 87635; C9803

== ENCOUNTER 2020-11-10 15:11 | Outpatient (CLI) | payer OTHER, MEDICAID, SELFPAY ==
[2020-11-10] VITALS (7 sets, daily range): BP systolic 98–121; BP diastolic 53–65; PULSE 71–81; RESP 17–20; TEMP 36.4; O2SAT 94–100
--- NOTE | 2020-11-10 15:12 | DI.RAD.S_ITS ---
PROCEDURE: PAIN L/S TRANSFORAMINAL INJECT INDICATIONS: SPONDYLOSIS COMPARISON: [facility], , PAIN L/S TRANSFORAMINAL INJECT, 09/03/2019, 15:04. FINDINGS: Fluoroscopic spot filming was performed to verify placement of spinal needles at the L4-L5 level(s), as labeled on the films. Appropriate location(s) of the needle tip(s) was confirmed by injection of iodinated contrast. Dictated by: Andrei Segal M.D. on 11/10/2020 at 16:19 Approved by: Andrei Segal M.D. on 11/10/2020 at 16:19
--- NOTE | 2020-11-10 15:12 | P.PCN_ITS ---
Date/Time/Diagnoses Date of procedure: 11/10/20 Time of procedure: 15:51 Pre-procedure diagnosis: 1. FORAMINAL STENOSIS WITH LE SYMPTOMS Post-procedure diagnosis: same Procedure Notes Procedure: 1. FLUOROSCOPICALLY GUIDED CONTRAST CONTROLLED TRANSFORAMINAL EPIDURAL STEROID INJECTION - LEFT L4/5 Indications: Arleen is referred by Dr. Ta for treatment of Foraminal Stenosis with Left LE Symptoms Physician: Godwin Banda Total Fluoroscopy time (seconds): 8 Total sedation minutes: 14 Complications: none Procedure in detail & Post-procedure care: FINDINGS Foraminal Nerve Root Compression secondary to disc disease and facet hypertrophy DESCRIPTION OF PROCEDURE Following review of allergy and review of potential side effects and complications, including, but not necessarily limited to, infection, allergic reaction, local tissue breakdown, stroke, temporary or permanent nerve injury, paralysis, and possible , the patient indicated that the patient understood and agreed to proceed. An informed consent document was signed by the patient, witnessed by a nurse, and placed in the patient's chart. Additionally, other treatment options including medications, modalities, and physical therapy were reviewed with the patient. After review of previous anaesthesic history and IV conscious sedation the patient was deemed safe to proceed with today?s procedure with IV conscious sedation as ASA class II designation. Safety time-out was performed to confirm patient ID, procedure to be performed and site of procedure. IV sedation was accomplished with a combination of 3mg of Versed and 50mcg of Fentanyl administered by the RN after DO order, titrated to patient comfort during the course of the procedure while the patient remained responsive to all verbal commands In the prone position following sterile prep and drape of the lumbar region, the left L4/5 posterior neuroforamen was identified fluoroscopically. The skin was anesthetized via a 25-gauge 1.5-inch needle with 1% lidocaine solution. At this point, a 25-gauge 3.5-inch spinal needle was atraumatically introduced and advanced under fluoroscopic guidance through the posterior left L4/5 neuroforam en to approximately the anterior aspect of the canal. Depth was confirmed on lateral view. Following negative aspiration, injection of approximately 1.5 cc of Isovue 200 under live fluoroscopy in the AP view confirmed excellent flow along the nerve root, into the epidural space without vascular or intrathecal uptake observed Radiological data, including multiple fluoroscopic views of the lumbosacral spine, reveal a spinal needle at the left L4/5 posterior neuroforamen. Subsequent views show flow of contrast material flowing superiorly and inferiorly along the nerve root confirming epidural flow. Subsequently, a test dose of 1.5 cc of 1% lidocaine solution was administered and patient was observed for two minutes for signs or symptoms of complications, including abdominal pain, shortness of breath, bilateral upper or lower extremity weakness, nausea and vomiting, prior to steroid injection. At this point, a total of 3cc or 80mg kenalog and 6mg of betamethasone was injected wit hout incident. The procedure tolerated the procedure well without signs or symptoms of complications prior to transfer to the recovery area continued monitoring without incident. The patient was then transferred to the recovery area where they were observed for an appropriate time after the injection. The patient reported a VAS score of 7 prior to the procedure and a post- procedure VAS of 0. POST OP INSTRUCTIONS The patient was provided a Pain Log to continue to record their response to the target-specific procedure prior to follow-up visit with their referring physician. Additionally, specific post-injection care instructions and a contact number to our office were provided if concerns arise regarding possible complications associated with the procedure are suspected.
[2020-11-10] MEDS: fentaNYL 100 MCG/2 ML INJ 50 MCG IV (15:30)
[2020-11-10] MEDS: MIDAZOLAM 5 MG/5 ML VIAL IV (15:30)
[2020-11-10] MEDS: BETAMETHASONE 30 MG/5 ML MDV 6 MG INJ (15:35)
[2020-11-10] MEDS: BUPIVACAINE 0.25% (PF) VIAL 2 ML INJ (15:35)
[2020-11-10] MEDS: IOPAMIDOL 15 ML VIAL 3 ML INJ (15:35)
[2020-11-10] MEDS: TRIAMCINOLONE 40 MG/ML VIAL 80 MG IM (15:58)
== END 2020-11-10 16:10 | disposition home or self-care (01) ==
PROVIDERS: PCP Family Medicine; Referring Provider Physical Medicine & Rehabilitation; Visit Provider Physical Medicine & Rehabilitation
DX: M48.061 Spinal stenosis, lumbar region without neurogenic claudication (principal); M51.16 Intervertebral disc disorders with radiculopathy, lumbar region
CPT/HCPCS: 64483; 99152; J0702; J1040; J1100; J2250; J3010

== ENCOUNTER → 2021-03-16 14:56 | Outpatient (CLI) | payer OTHER, MEDICAID, SELFPAY ==
[2021-03-16 16:56] LABS: Alanine Aminotransferase 21 IU/L (<35); Albumin 3.8 g/dL (3.5-5.0); Albumin Globulin Ratio 1.4 (1.0-2.8); Alkaline Phosphatase 53 U/L (38-126); Aspartate Aminotransferase 29 IU/L (14-36); Bilirubin Total 0.2 mg/dL (0.2-1.3); Blood Urea Nitrogen 6 mg/dL (7-17); Calcium 9.4 mg/dL (8.4-10.2); Carbon Dioxide 30 mmol/L (22-32); Chloride 103 mmol/L (98-107); Estimated Glomerular Filt Rate > 60.0 mL/min (>60); Globulin 2.8 g/dL (1.7-4.1); Glucose 73 mg/dL (70-100); HEMOLYSIS < 15 (0-50); Potassium 4.3 mmol/L (3.4-5.1); Sodium 137 mmol/L (137-145); Total Protein 6.6 g/dL (6.3-8.2)
== END ==
PROVIDERS: PCP Family Medicine; Referring Provider Registered Nurse; Visit Provider Registered Nurse
DX: R60.0 Localized edema (principal)
CPT/HCPCS: 36415; 80053

== ENCOUNTER 2021-04-27 17:02 | Emergency (ER) | payer OTHER, MEDICAID, SELFPAY ==
[2021-04-27] VITALS (9 sets, daily range): BP systolic 94–114; BP diastolic 51–82; PULSE 76–92; RESP 13–22; TEMP 36.7; O2SAT 95–100; BMI 25.0
--- NOTE | 2021-04-27 17:22 | DI.RAD.S_ITS ---
PROCEDURE: XR CHEST 1V INDICATIONS: chest pain TECHNIQUE: One view of the chest was acquired. [facility], 16:03. FINDINGS: Surgical changes and devices: None. Lungs and pleura: Lungs are clear. No pleural effusions or pneumothorax. Mediastinum: Mediastinal contours appear normal. Heart size is normal. Bones and chest wall: No suspicious bony lesions. Overlying soft tissues appear unremarkable. IMPRESSION: No acute cardiopulmonary abnormality. Dictated by: Taran Beal M.D. on 04/27/2021 at 18:13 Approved by: Taran Beal M.D. on 04/27/2021 at 18:13
--- NOTE | 2021-04-27 18:07 | ED_ITS ---
HPI - Chest Pain General Chief Complaint: Chest Pain Stated Complaint: Chest Pains, Left Sided,SOB,10 Days Time Seen by Provider: 04/27/21 18:05 History of Present Illness HPI narrative: 35-year-old female former smoker without any cardiac history presents with a chief complaint of episodes of increasing sharp and stabbing chest pain in her left anterior chest that radiates to her back. Making it hard to breathe and she states that taking deep breath seems to worsen her symptoms. She she is unclear about exactly what she was doing when it started but states it is certainly worsening. She denies dizziness or lightheadedness but does admit to shortness of breath. She has had no fever or chills nor recent injury. She denies any history of blood clot or recent travel. She has been complaining of some swelling in her left leg that is thus far gone without diagnosis. Related Data Previous Rx's Medication Instructions Recorded levothyroxine 75 mcg tablet 75 mcg PO QDAY #90 tab 06/29/20 (Synthroid) trazodone 100 mg tablet 100 mg PO BEDTIME PRN #60 tab 02/22/21 citalopram 40 mg tablet See Rx Instructions .ROUTE 03/13/21 .COMPLEX #90 tab tramadol 50 mg tablet 100 mg PO Q6H #240 tab 03/14/21 bupropion HCl 300 mg 24 hr tablet, 300 mg PO QAM #30 tab 03/24/21 extended release gabapentin 600 mg tablet See Rx Instructions .ROUTE 04/13/21 .COMPLEX #90 tab Allergies Allergy/AdvReac Type Severity Reaction Status Date / Time ketorolac [From TORADOL] Allergy Intermediate vomiting Verified 04/27/21 19:42 clindamycin [CLINDAMYCIN] Allergy Mild rash/itchy Verified 04/27/21 19:42 dexamethasone AdvReac Intermediate abdominal Verified 04/27/21 19:42 pain and diarrhea Review of Systems Review of Systems Narrative: GENERAL: Denies chills, fatigue, malaise, fever, sweats. HEENT: Denies sinus pain, ear pain, sore throat, difficulty swallowing, diz ziness. RESPIRATORY: Denies dyspnea, cough, wheezing, hemoptysis, sputum. CARDIOVASCULAR: See HPI GASTROINTESTINAL: Denies nausea, vomiting, abdominal pain, diarrhea, constipation, melena. : Denies dysuria, frequency, incontinence, hematuria, urinary retention. MUSCULOSKELETAL: denies weakness, joint pain, or bony pain SKIN: Denies rash, skin lesions, or other NEUROLOGIC: Denies weakness, headache, numbness, change in speech, confusion, seizures, incoordination. PSYCHIATRIC: No concerning psychosocial issues. 12 point review of systems is negative except for those stated above Patient History Medical History Abnormal Pap smear of cervix Bronchitis Depression Edema of both lower legs Face presentation of fetus Foraminal stenosis of lumbosacral region Migraines labor Tobacco use disorder (05/25/15) Vaginal delivery Surgical History History of third molar tooth extraction Status post wrist surgery Social History Smoking Status: Former smoker Smoking Status: Former smoker Substance Use Type: does not use Exam Narrative Exam Narrative: GENERAL: [35] year old patient appears stated age. Well- developed patient, in mild distress. Anxious and tearful, rubbing her anterior chest HEAD: Atraumatic. Normocephalic. EYES: Pupils equal round and reactive. Extraocular motions intact. No scleral icterus. No injection or drainage. ENT: Nose without bleeding, purulent drainage. Throat without erythema, tonsillar hypertrophy or exudate. Airway patent. NECK: Trachea midline. Non tender CARDIOVASCULAR: Regular rate and rhythm without murmurs, gallops, or rubs. RESPIRATORY: Clear to auscultation. Breath sounds equal bilaterally. No wheezes, rales, or rhonchi. GASTROINTESTINAL: Abdomen soft, non-tender, nondistended. EXTREMITIES: No edema or joint tenderness. BACK: Nontender without deformity or crepitance. No flank tenderness. NEURO: AOx3. SKIN: No rash or erythema of visible areas Initial Vital Signs Initial Vital Signs: Vital Signs Temperature 98.0 F 04/27/21 17:19 Pulse Rate 92 H 04/27/21 17:19 Respiratory Rate 20 04/27/21 17:19 Blood Pressure 114/82 04/27/21 17:19 Pulse Oximetry 97 04/27/21 17:19 Course Orders Ordered: Discontinued Medications Ketorolac Tromethamine (Ketorolac 30 Mg/Ml Vial) 15 mg IV NOW ONE Stop: 04/27/21 19:23 Last Admin: 04/27/21 19:41 Dose: Not Given Documented by: KBROTEM Vital Signs Vital signs: Vital Signs - 8 hr 04/27/21 17:19 04/27/21 17:43 04/27/21 17:48 Temperature 98.0 F Pulse Rate 92 H 81 80 Respiratory Rate 20 19 13 Blood Pressure 114/82 94/51 L Pulse Oximetry 97 100 99 04/27/21 18:00 04/27/21 18:30 04/27/21 19:00 Temperature Pulse Rate 78 77 76 Respiratory Rate 16 22 18 Blood Pressure 99/57 L 100/62 94/56 L Pulse Oximetry 97 98 95 04/27/21 19:30 04/27/21 20:00 Temperature Pulse Rate 77 77 Respiratory Rate 21 21 Blood Pressure 98/58 L 99/54 L Pulse Oximetry 98 95 MDM - Chest Pain Lab Data Result diagrams: 04/27/21 17:46 04/27/21 17:46 Labs: Lab Results 04/27/21 04/27/21 04/27/21 Range/Units 17:46 17:46 17:46 WBC 7.8 (4.5-11.0) X10^3/uL RBC 4.03 (4.0-5.2) X10^6/uL Hgb 11.9 L (12.0-16.0) g/dL Hct 35.9 L (36-46) % MCV 89.0 (80-100) fL MCH 29.5 (26-34) PG MCHC 33.2 (30-36) % RDW 12.8 (11.6-14.8) % Plt Count 177 (150-400) X10^3/uL Neut % (Auto) 55.2 (50-75) % Lymph % (Auto) 36.8 (25-40) % [place] % (Auto) 6.9 (3-14) % Eos % (Auto) 0.6 L (2-4) % Baso % (Auto) 0.5 (0-2) % Neut # (Auto) 4300 (9863-9163) /uL Lymph # (Auto) 2900 (2989-5560) /uL [place] # (Auto) 500 (0-900) /uL Eos # (Auto) 0 (0-450) /uL Baso # (Auto) 0 (0-100) /uL ESR (0-20) MM/HR D-Dimer (<230) ng/mL Sodium 137 (137-145) mmol/L Potassium 3.7 (3.4-5.1) mmol/L Chloride 109 H (98-107) mmol/L Carbon Dioxide 22 (22-32) mmol/L BUN 8 (7-17) mg/dL Creatinine 0.63 (0.52-1.04) mg/dL Estimated GFR > 60.0 (>60) mL/min BUN/Creatinine Ratio 12.7 (6-22) Glucose 80 (70-100) mg/dL Calcium 8.6 (8.4-10.2) mg/dL Magnesium 2.3 (1.6-2.3) mg/dL Total Bilirubin 0.3 (0.2-1.3) mg/dL AST 24 (14-36) IU/L ALT 18 (<35) IU/L Alkaline Phosphatase 48 (38-126) U/L Total Creatine Kinase 67 (30-135) U/L CK-MB (CK-2) TNP CK-MB (CK-2) Rel Index TNP Troponin I < 0.012 (0.01-0.034) ng/mL C-Reactive Protein (<1.0) mg/dL Total Protein 6.8 (6.3-8.2) g/dL Albumin 4.0 (3.5-5.0) g/dL Globulin 2.8 (1.7-4.1) g/dL Albumin/Globulin Ratio 1.4 (1.0-2.8) Lipase 28 (23-300) U/L 04/27/21 04/27/21 04/27/21 Range/Units 17:46 17:46 18:28 WBC (4.5-11.0) X10^3/uL RBC (4.0-5.2) X10^6/uL Hgb (12.0-16.0) g/dL Hct (36-46) % MCV (80-100) fL MCH (26-34) PG MCHC (30-36) % RDW (11.6-14.8) % Plt Count (150-400) X10^3/uL Neut % (Auto) (50-75) % Lymph % (Auto) (25-40) % [place] % (Auto) (3-14) % Eos % (Auto) (2-4) % Baso % (Auto) (0-2) % Neut # (Auto) (6968-4412) /uL Lymph # (Auto) (7535-8788) /uL [place] # (Auto) (0-900) /uL Eos # (Auto) (0-450) /uL Baso # (Auto) (0-100) /uL ESR 11 (0-20) MM/HR D-Dimer 236 H (<230) ng/mL Sodium (137-145) mmol/L Potassium (3.4-5.1) mmol/L Chloride (98-107) mmol/L Carbon Dioxide (22-32) mmol/L BUN (7-17) mg/dL Creatinine (0.52-1.04) mg/dL Estimated GFR (>60) mL/min BUN/Creatinine Ratio (6-22) Glucose (70-100) mg/dL Calcium (8.4-10.2) mg/dL Magnesium (1.6-2.3) mg/dL Total Bilirubin (0.2-1.3) mg/dL AST (14-36) IU/L ALT (<35) IU/L Alkaline Phosphatase (38-126) U/L Total Creatine Kinase (30-135) U/L CK-MB (CK-2) CK-MB (CK-2) Rel Index Troponin I (0.01-0.034) ng/mL C-Reactive Protein < 0.5 (<1.0) mg/dL Total Protein (6.3-8.2) g/dL Albumin (3.5-5.0) g/dL Globulin (1.7-4.1) g/dL Albumin/Globulin Ratio (1.0-2.8) Lipase (23-300) U/L 04/27/21 Range/Units 20:44 WBC (4.5-11.0) X10^3/uL RBC (4.0-5.2) X10^6/uL Hgb (12.0-16.0) g/dL Hct (36-46) % MCV (80-100) fL MCH (26-34) PG MCHC (30-36) % RDW (11.6-14.8) % Plt Count (150-400) X10^3/uL Neut % (Auto) (50-75) % Lymph % (Auto) (25-40) % [place] % (Auto) (3-14) % Eos % (Auto) (2-4) % Baso % (Auto) (0-2) % Neut # (Auto) (0946-4618) /uL Lymph # (Auto) (0032-1960) /uL [place] # (Auto) (0-900) /uL Eos # (Auto) (0-450) /uL Baso # (Auto) (0-100) /uL ESR (0-20) MM/HR D-Dimer (<230) ng/mL Sodium (137-145) mmol/L Potassium (3.4-5.1) mmol/L Chloride (98-107) mmol/L Carbon Dioxide (22-32) mmol/L BUN (7-17) mg/dL Creatinine (0.52-1.04) mg/dL Estimated GFR (>60) mL/min BUN/Creatinine Ratio (6-22) Glucose (70-100) mg/dL Calcium (8.4-10.2) mg/dL Magnesium (1.6-2.3) mg/dL Total Bilirubin (0.2-1.3) mg/dL AST (14-36) IU/L ALT (<35) IU/L Alkaline Phosphatase (38-126) U/L Total Creatine Kinase (30-135) U/L CK-MB (CK-2) CK-MB (CK-2) Rel Index Troponin I < 0.012 (0.01-0.034) ng/mL C-Reactive Protein (<1.0) mg/dL Total Protein (6.3-8.2) g/dL Albumin (3.5-5.0) g/dL Globulin (1.7-4.1) g/dL Albumin/Globulin Ratio (1.0-2.8) Lipase (23-300) U/L Imaging Data Chest x-ray: Radiologist's Impression: Arleen Bird 35 F [address] [address]FG[address] ReportSigned Patient: PelonArleen RMR#: [id number]: 1985Acct:[id number]/Sex: 35 / FDate of Service: 04/27/21Loc: EDAccession Number: [id number] Procedure: XR chest 1V Ordering Provider: Austyn Harris D.O. PROCEDURE: XR CHEST 1V INDICATIONS: chest pain TECHNIQUE: One view of the chest was acquired. COMPARISON: [facility], CHEST 2 VIEW, 02/01/2017, 14:35. [facility], , CHEST 2 VIEW, 01/27/2013, 16:03. FINDINGS: Surgical changes and devices: None. Lungs and pleura: Lungs are clear. No pleural effusions or pneumothorax. Mediastinum: Mediastinal contours appear normal. Heart size is normal. Bones and chest wall: No suspicious bony lesions. Overlying soft tissues appear unremarkable. IMPRESSION: No acute cardiopulmonary abnormality. Dictated by: Taran Beal M.D. on 04/27/2021 at 18:13 ECG Data Interpretation: EKG is normal sinus rhythm rate [ 86] and free of any signs of ischemia or ectopy. No ST segmental elevation or depression. No T wave inv ersions MDM Narrative Medical decision making narrative: Multiple causes of chest pain considered including RI, PE, pneumothorax, pneumonia, aortic dissection, and pleurisy. Patient reports no radiation, no diaphoresis, no provocation with exertion, and no vomiting. PE considered but thought unlikely given D-dimer below the cutoff for CT angiogram. Patient's symptoms improved over duration of stay with above-stated therapies. Findings and discharge diagnosis discussed with patient/family followed by verbalization of understanding Return precautions discussed with patient/family whom verbalize understanding. Discharge Plan Departure Patient Disposition: Home Clinical Impression: Atypical chest pain Instructions: DI for Atypical Chest Pain Activity Restrictions/Additional Instructions: *You have been diagnosed with [atypical chest pain. No sign of heart attack or blood clot] *What to do: *Please continue to take your regular medications as directed. [ ] New medication prescriptions sent to your pharmacy: [ ] [ ] New medication written as a paper prescription [ ] No new medications given *Please follow up with your primary care provider in 2-3 days, call for an appo intment. Let them know you were seen in the Emergency Department and that we ask that you be seen in follow up. We will electronically transmit a record of today's note if your PCP is in our system *If you do not have a primary care provider please contact the [facility] Resource line at [phone]. They will ask some questions about your medical history and help get you set up with a doctor in the community. *Return to Emergency Department if you should have any new, worsening or conc erning symptoms, such as [fever greater than 101 F, shaking chills, worsening pain, persistent vomiting or other bothersome symptoms] Prescriptions: No Action levothyroxine [Synthroid] 75 mcg tablet 75 mcg PO QDAY Qty: 90 RF: 4 citalopram 40 mg tablet See Rx Instructions .ROUTE .COMPLEX Qty: 90 RF: 3 tramadol 50 mg tablet 100 mg PO Q6H Qty: 240 RF: 2 gabapentin 600 mg tablet See Rx Instructions .ROUTE .COMPLEX Qty: 90 RF: 1 bupropion HCl 300 mg tablet extended release 24 hr 300 mg PO QAM Qty: 30 RF: 1 trazodone 100 mg tablet 100 mg PO BEDTIME PRN (Reason: insomnia) Qty: 60 RF: 2 Referrals: Trinidad Ta DO [Primary Care Provider] -
[2021-04-27 18:08] LABS: Alanine Aminotransferase 18 IU/L (<35); Albumin Globulin Ratio 1.4 (1.0-2.8); Alkaline Phosphatase 48 U/L (38-126); Aspartate Aminotransferase 24 IU/L (14-36); BUN Creatinine Ratio 12.7 (6-22); Bilirubin Total 0.3 mg/dL (0.2-1.3); Blood Urea Nitrogen 8 mg/dL (7-17); Calcium 8.6 mg/dL (8.4-10.2); Carbon Dioxide 22 mmol/L (22-32); Chloride 109 mmol/L (98-107); Creatine Kinase 67 U/L (30-135); Estimated Glomerular Filt Rate > 60.0 mL/min (>60); Globulin 2.8 g/dL (1.7-4.1); Glucose 80 mg/dL (70-100); HEMOLYSIS 20 (0-50); Lipase 28 U/L (23-300); Potassium 3.7 mmol/L (3.4-5.1); Sodium 137 mmol/L (137-145); Total Protein 6.8 g/dL (6.3-8.2)
[2021-04-27 18:09] LABS: Magnesium 2.3 mg/dL (1.6-2.3)
[2021-04-27 18:14] LABS: Add Manual Diff / Slide Review NO; Basophils Absolute Auto 0 /uL (0-100); Basophils Percent Auto 0.5 % (0-2); Eosinophils Absolute Auto 0 /uL (0-450); Eosinophils Percent Auto 0.6 % (2-4); Hematocrit 35.9 % (36-46); Hemoglobin 11.9 g/dL (12.0-16.0); Lymphocytes Absolute Auto 2900 /uL (1100-4500); Lymphocytes Percent Auto 36.8 % (25-40); Mean Corpuscular HGB Conc 33.2 % (30-36); Mean Corpuscular Hemoglobin 29.5 PG (26-34); Monocytes Absolute Auto 500 /uL (0-900); Monocytes Percent Auto 6.9 % (3-14); Neutrophils Absolute Auto 4300 /uL (1500-7000); Neutrophils Percent Auto 55.2 % (50-75); Platelet Count 177 X10^3/uL (150-400); Red Blood Cell Count 4.03 X10^6/uL (4.0-5.2); Red Cell Distribution Width 12.8 % (11.6-14.8); White Blood Cell Count 7.8 X10^3/uL (4.5-11.0)
[2021-04-27 18:20] LABS: Troponin I < 0.012 ng/mL (0.01-0.034)
[2021-04-27 18:40] LABS: C-Reactive Protein Quant < 0.5 mg/dL (<1.0)
[2021-04-27 18:46] LABS: D Dimer 236 ng/mL (<230)
[2021-04-27 18:52] LABS: Erythrocyte Sedimentation Rate 11 MM/HR (0-20)
[2021-04-27 21:09] LABS: Troponin I < 0.012 ng/mL (0.01-0.034)
== END 2021-04-27 20:58 | disposition home or self-care (01) ==
PROVIDERS: Emergency Medicine; Emergency Provider Emergency Medicine; PCP Family Medicine
DX: R07.89 Other chest pain (principal)
CPT/HCPCS: 36415; 71045; 80053; 82550; 83690; 83735; 84484; 85025; 85379; 85651; 86140; 93005; 99283; 99284; J1885

== ENCOUNTER → 2021-08-14 09:05 | Outpatient (CLI) | payer OTHER, MEDICAID, SELFPAY ==
[2021-08-14 09:58] LABS: Add Manual Diff / Slide Review NO; Basophils Absolute Auto 0 /uL (0-100); Basophils Percent Auto 0.6 % (0-2); Eosinophils Absolute Auto 100 /uL (0-450); Eosinophils Percent Auto 1.4 % (2-4); Hemoglobin 12.3 g/dL (12.0-16.0); Lymphocytes Absolute Auto 1500 /uL (1100-4500); Mean Corpuscular HGB Conc 33.3 % (30-36); Mean Corpuscular Hemoglobin 29.2 PG (26-34); Mean Corpuscular Volume 87.8 fL (80-100); Monocytes Absolute Auto 300 /uL (0-900); Monocytes Percent Auto 6.8 % (3-14); Neutrophils Absolute Auto 2600 /uL (1500-7000); Neutrophils Percent Auto 58.2 % (50-75); Platelet Count 179 X10^3/uL (150-400); Red Blood Cell Count 4.21 X10^6/uL (4.0-5.2); Red Cell Distribution Width 13.7 % (11.6-14.8); White Blood Cell Count 4.4 X10^3/uL (4.5-11.0)
[2021-08-14 10:34] LABS: C-Reactive Protein Quant < 0.5 mg/dL (<1.0)
[2021-08-14 10:46] LABS: Erythrocyte Sedimentation Rate 8 MM/HR (0-20)
[2021-08-14 11:01] LABS: TSH w/ Reflex to FT4 1.53 uIU/mL (0.47-4.68)
== END ==
PROVIDERS: PCP Family Medicine; Referring Provider Family Medicine; Visit Provider Family Medicine
DX: M79.10 Myalgia, unspecified site (principal)
CPT/HCPCS: 36415; 84443; 85025; 85651; 86140

== ENCOUNTER → 2022-02-05 17:29 | Outpatient (CLI) | payer OTHER, MEDICAID, SELFPAY ==
[2022-02-05 17:58] LABS: Add Manual Diff / Slide Review NO; Basophils Absolute Auto 0 /uL (0-100); Basophils Percent Auto 0.5 % (0-2); Eosinophils Absolute Auto 0 /uL (0-450); Eosinophils Percent Auto 0.7 % (2-4); Hemoglobin 12.3 g/dL (12.0-16.0); Lymphocytes Absolute Auto 2400 /uL (1100-4500); Lymphocytes Percent Auto 33.8 % (25-40); Mean Corpuscular HGB Conc 34.1 % (30-36); Mean Corpuscular Hemoglobin 30.3 PG (26-34); Mean Corpuscular Volume 88.9 fL (80-100); Monocytes Absolute Auto 400 /uL (0-900); Monocytes Percent Auto 5.1 % (3-14); Neutrophils Absolute Auto 4200 /uL (1500-7000); Neutrophils Percent Auto 59.9 % (50-75); Platelet Count 185 X10^3/uL (150-400); Red Blood Cell Count 4.05 X10^6/uL (4.0-5.2); Red Cell Distribution Width 13.1 % (11.6-14.8)
[2022-02-05 18:18] LABS: Erythrocyte Sedimentation Rate 15 MM/HR (0-20)
[2022-02-05 18:35] LABS: Alanine Aminotransferase 28 IU/L (<35); Albumin 4.3 g/dL (3.5-5.0); Albumin Globulin Ratio 1.6 (1.0-2.8); Alkaline Phosphatase 52 U/L (38-126); Aspartate Aminotransferase 32 IU/L (14-36); BUN Creatinine Ratio 8.5 (6-22); Bilirubin Total 0.3 mg/dL (0.2-1.3); Blood Urea Nitrogen 6 mg/dL (7-17); C-Reactive Protein Quant < 0.5 mg/dL (<1.0); Calcium 8.6 mg/dL (8.4-10.2); Carbon Dioxide 29 mmol/L (22-32); Chloride 103 mmol/L (98-107); Estimated Glomerular Filt Rate > 60 mL/min (>60); Globulin 2.7 g/dL (1.7-4.1); Glucose 74 mg/dL (70-100); HEMOLYSIS < 15 (0-50); Sodium 137 mmol/L (137-145)
[2022-02-05 19:17] LABS: Vitamin B12 586 pg/mL (239-931)
[2022-02-05 19:25] LABS: TSH w/ Reflex to FT4 0.84 uIU/mL (0.47-4.68)
[2022-02-05 21:13] LABS: Luteinizing Hormone 4.75 mIU/mL
[2022-02-06 04:41] LABS: RPR Screen Non Reactive (Non Reactive)
[2022-02-07 17:16] LABS: ANA Screen, IFA Negative (.)
== END ==
PROVIDERS: PCP Family Medicine; Referring Provider Family Medicine; Visit Provider Family Medicine
DX: E03.9 Hypothyroidism, unspecified (principal); L40.9 Psoriasis, unspecified; L65.9 Nonscarring hair loss, unspecified; M53.3 Sacrococcygeal disorders, not elsewhere classified; M54.32 Sciatica, left side; M79.10 Myalgia, unspecified site
CPT/HCPCS: 36415; 80053; 82306; 82607; 83001; 83002; 84443; 85025; 85651; 86038; 86140; 86592

== ENCOUNTER → 2022-06-07 16:03 | Outpatient (CLI) | payer OTHER, MEDICAID, SELFPAY ==
[2022-06-07 19:22] LABS: Appearance Urine UA CLEAR; Bilirubin Urine UA NEGATIVE (NEGATIVE); Color Urine UA YELLOW; Glucose Urine UA NEGATIVE (Negative); Ketones Urine UA NEGATIVE (NEGATIVE); Leukocyte Esterase Urine UA 1+ (NEGATIVE); Nitrite Urine UA NEGATIVE (Negative); Occult Blood Urine UA 2+ (Negative); Protein Urine UA 1+ (Negative); Urobilinogen Urine UA 0.2 E.U./dL (0.2)
[2022-06-07 19:23] LABS: pH Urine UA 7.5 (4.5-8.0)
[2022-06-07 20:10] LABS: Bacteria Urine Few (2-10); Culture Indicated Urine Specimen Cultured; RBC Urine 0-1/HPF (0-5/HPF); Squamous Epithelial Cell Urine None Seen (0-5/HPF); WBC Urine 10-30/HPF (0-5/HPF)
== END ==
PROVIDERS: PCP Pediatrics; Referring Provider Family Medicine; Visit Provider Family Medicine
DX: R30.0 Dysuria (principal)
CPT/HCPCS: 81001; 87086

== ENCOUNTER → 2022-07-12 10:49 | Outpatient (CLI) | payer OTHER, MEDICAID, SELFPAY ==
--- NOTE | 2022-07-12 10:50 | DI.US.S_ITS ---
PROCEDURE: US PELVIC COMPLETE INDICATIONS: Check if IUD present, strings not seen on exam. TECHNIQUE: Real-time scanning was performed of the pelvic organs, with image documentation. Additional endovaginal scanning was necessary due to incomplete visualization of the adnexal and endometrial structures by transabdominal scanning. COMPARISON: [facility], , US PELVIC COMPLETE, 06/06/2020, 9:26. FINDINGS: Uterus: Uterus is anteverted and normal in size at 8.1 x 3.6 x 4.7 cm. The myometrium is homogeneous. The endometrium measures 1 mm combined thickness. An IUD is present in the uterine cavity and appears appropriately positioned. Ovaries: The right ovary measures 2.4 x 1.3 x 2.5 cm, with a calculated ovarian volume of 4 cc. The left ovary measures 4.2 x 2.9 x 4.7 cm, with a calculated ovarian volume of 29 cc. Several simple appearing cysts/follicles are present in the left ovary, largest measures up to 3.7 centimeters. Less than 12 follicles can be seen in each ovary. No adnexal masses are seen. Other: No pathologic free abdominal or pelvic fluid. IMPRESSION: 1. An IUD is present and appears appropriately positioned. 2. A 3.7 cm simple appearing cyst is present in the left ovary. Per SRU guidelines, imaging follow-up is not necessary for this finding in an asymptomatic patient. We strive to produce accurate, complete, and clear reports of imaging services. To assist us in improving patient care, this report was composed using standard report templates and voice recognition software. Therefore, it may contain abnormal punctuation, insertions and/or omissions. Occasional wrong-word or sound-alike substitutions may occur. Though we review the report and make efforts to correct it, we do recommend that the report be read carefully in proper context to recognize any text inaccuracies. Dictated by: Kyler Aleman M.D. on 07/12/2022 at 13:10 Approved by: Kyler Aleman M.D. on 07/12/2022 at 13:22
== END ==
PROVIDERS: PCP Family Medicine; Referring Provider Family Medicine; Visit Provider Family Medicine
DX: T83.32XA Displacement of intrauterine contraceptive device, initial encounter (principal); N83.202 Unspecified ovarian cyst, left side
CPT/HCPCS: 76830; 76856

== ENCOUNTER 2022-09-23 18:06 | Emergency (ER) | payer OTHER, MEDICAID, SELFPAY ==
[2022-09-23 18:08] VITALS: BP 112/74; PULSE 83; RESP 16; TEMP 36.8; O2SAT 97; BMI 23.3
--- NOTE | 2022-09-23 18:13 | ED.UPPEXIN ---
HPI - Extremity Injury (Upper) <RODERICK Vargas - Last Filed: 09/23/22 19:34> General Chief Complaint: Skin/Abscess/Foreign Body Stated Complaint: Laceration on finger with knife Time Seen by Provider: 09/23/22 18:12 History of Present Illness HPI narrative: This is a 37-year-old female right-hand dominant who presents to the emergency department after she accidentally cut her left little finger with a knife while preparing dinner tonight. She has a laceration on the palmar aspect approximally 2 cm over the PIP joint. Denies numbness, tingling, is able to flex and extend her finger without difficulty. She denies numbness or tingling or weakness. Her last tetanus on chart review is from 2018. She denies any other injuries. Related Data Previous Rx's Medication Instructions Recorded bupropion HCl 300 mg 24 hr tablet, 300 mg PO QAM #90 tabs 05/31/22 extended release buspirone 7.5 mg tablet 7.5 mg PO TID #270 tabs 05/31/22 alprazolam 0.25 mg tablet 0.25 mg PO DAILY PRN panic attack 06/01/22 #20 tabs citalopram 40 mg tablet 40 mg PO DAILY #90 tabs 06/01/22 gabapentin 600 mg tablet 1,200 mg PO TID #180 tabs 06/01/22 levothyroxine 75 mcg tablet See Rx Instructions .Route 06/01/22 .COMPLEX #90 tabs trazodone 100 mg tablet 100 mg PO BEDTIME PRN insomnia #90 06/01/22 tabs tramadol 50 mg tablet 100 mg PO Q6H PRN pain #240 tabs 09/18/22 Allergies Allergy/AdvReac Type Severity Reaction Status Date / Time ketorolac [From TORADOL] Allergy Intermediate vomiting Verified 08/08/22 13:13 clindamycin [CLINDAMYCIN] Allergy Mild rash/itchy Verified 08/08/22 13:13 dexamethasone AdvReac Intermediate abdominal Verified 08/08/22 13:13 pain and diarrhea Review of Systems <RODERICK Vargas - Last Filed: 09/23/22 19:34> Review of Systems ROS Unobtainable: All systems reviewed & are unremarkable except as noted in HPI and below Patient History <RODERICK Vargas - Last Filed: 09/23/22 19:34> Medical History Abnormal Pap smear of cervix Alopecia Anemia Anxiety Bronchitis Depression (12/03/13) Depression Edema of both lower legs Face presentation of fetus Foraminal stenosis of lumbosacral region Headache Hemorrhoid Human papilloma virus Hypothyroidism (05/25/15) Irregular menstrual cycle Migraines Panic attack labor Psoriasis Shoulder pain Tobacco use disorder (05/25/15) Vaginal delivery Surgical History Anesthesia History of third molar tooth extraction Status post wrist surgery Social History Smoking Status: Former smoker Smoking Status: Former smoker Substance Use Type: does not use Exam <RODERICK Vargas - Last Filed: 09/23/22 19:34> Narrative Exam Narrative: Reviewed vitals signs and nursing notes. General: cooperative, comfortable, in no acute distress, well groomed MSK: moves all extremities, neurovascularly intact, no weakness, normal tone, laceration on the volar aspect over the PIP joint of her left little finger proximally 2 cm, mild oozing of blood, control pressure, wound appears clean, irrigated with normal saline, deep structures intact, flexion extension isolated each joint without deficit, cap refills brisk, sensation and mobility intact Skin: brisk capillary refill, without pallor or erythema, laceration as described above on non dominant hand Initial Vital Signs Initial Vital Signs: Vital Signs Temperature 98.2 F 09/23/22 18:08 Pulse Rate 83 09/23/22 18:08 Respiratory Rate 16 09/23/22 18:08 Blood Pressure 112/74 09/23/22 18:08 Pulse Oximetry 97 09/23/22 18:08 Oxygen Delivery Method 09/23/22 18:08 <Souleymane Wiggins DO - Last Filed: 09/24/22 02:49> Initial Vital Signs Initial Vital Signs: Vital Signs Temperature 98.2 F 09/23/22 18:08 Pulse Rate 83 09/23/22 18:08 Respiratory Rate 16 09/23/22 18:08 Blood Pressure 112/74 09/23/22 18:08 Pulse Oximetry 97 09/23/22 18:08 Oxygen Delivery Method 09/23/22 18:08 Procedures <RODERICK Vargas - Last Filed: 09/23/22 19:34> Laceration Repair Laceration 1: Site: hand (Fifth finger over PIP joint) Side (If applicable): left Size (cm): 2 Description: linear Depth: simple, single layer Local Anesthetic: lidocaine 2% (Digital block) Amount of anesthesia used (mL): 2 Pre-repair: wound explored, irrigated extensively and deep structures intact Skin layer closed with: nylon Number of sutures: 6 Technique: simple, interrupted Course <RODERICK Vargas - Last Filed: 09/23/22 19:34> Orders Ordered: Discontinued Medications Acetaminophen (Acetaminophen 325 Mg Tablet) 975 mg PO NOW ONE Stop: 09/23/22 18:14 Last Admin: 09/23/22 18:30 Dose: 975 mg Documented By: MARYBETH Ibuprofen (Ibuprofen 400 Mg Tablet) 600 mg PO NOW ONE Stop: 09/23/22 18:32 Last Admin: 09/23/22 18:35 Dose: 600 mg Documented By: MARYBETH Ketorolac Tromethamine (Ketorolac 10 Mg Tablet) 10 mg PO NOW ONE Stop: 09/23/22 18:14 Last Admin: 09/23/22 18:31 Dose: Not Given Documented By: MARYBETH Vital Signs Vital signs: Vital Signs - 8 hr 09/23/22 18:08 Temperature 98.2 F Pulse Rate 83 Respiratory Rate 16 Blood Pressure 112/74 Pulse Oximetry 97 Oxygen Delivery Method Room Air <Souleymane Wiggins DO - Last Filed: 09/24/22 02:49> Orders Ordered: Discontinued Medications Acetaminophen (Acetaminophen 325 Mg Tablet) 975 mg PO NOW ONE Stop: 09/23/22 18:14 Last Admin: 09/23/22 18:30 Dose: 975 mg Documented By: MARYBETH Ibuprofen (Ibuprofen 400 Mg Tablet) 600 mg PO NOW ONE Stop: 09/23/22 18:32 Last Admin: 09/23/22 18:35 Dose: 600 mg Documented By: MARYBETH Ketorolac Tromethamine (Ketorolac 10 Mg Tablet) 10 mg PO NOW ONE Stop: 09/23/22 18:14 Last Admin: 09/23/22 18:31 Dose: Not Given Documented By: MARYBETH Vital Signs Vital signs: Vital Signs - 8 hr 09/23/22 18:08 Temperature 98.2 F Pulse Rate 83 Respiratory Rate 16 Blood Pressure 112/74 Pulse Oximetry 97 Oxygen Delivery Method Room Air MDM - Extremity Injury (Upper) <Rebeka RODERICK Love - Last Filed: 09/23/22 19:34> MDM Narrative Medical decision making narrative: This is a 37-year-old female right-hand dominant who presents to the emergency department after she accidentally cut her left little finger with a knife while preparing dinner tonight. She has a laceration on the palmar aspect approximally 2 cm over the PIP joint. Multiple etiologies for patient's symptoms considered including, but not limited to: Finger laceration tendon injury, wound contamination fracture Superficial laceration, did not require imaging, cut with a knife without concern for foreign body Laceration repair as stated above, uncomplicated, patient tolerated well with a nerve block over the PIP joint of her left little finger. Six sutures placed after wound was irrigated with normal saline. Good wound approximation and hemostatic. Last tetanus was in 2018. Recommend suture removal in 10 days, cover with a Band-Aid to splint over the PIP joint, topical antibiotic and return for worsening pain, fever, red streaking up her hand or other symptoms of infection. Patient's symptoms improved over duration of stay with above-stated therapies. Findings and discharge diagnosis discussed with patient/family followed by verbalization of understanding Return precautions discussed with patient/family whom verbalize understanding of diagnosis and plan Discharge Plan Departure Patient Disposition: Home Clinical Impression: Finger laceration Qualifiers: Encounter type: initial encounter Finger: little finger Damage to nail status: without damage Foreign body presence: without foreign body Laterality: left Qualified Code(s): S61.217A - Laceration without foreign body of left little finger without damage to nail, initial encounter Instructions: DI for Laceration Repair -- Finger Activity Restrictions/Additional Instructions: *You have been diagnosed with a finger laceration, your last tetanus was in 2018, he did not need another for a few more years. Please keep your wound clean, covered with a Band-Aid and antibiotic ointment for least 10 days and then okay to remove the sutures at the wound base has healed. If you develop red streaking up your hand, increased swelling, signs of infection, please come back for another evaluation. You have 6 sutures, try to avoid frequent bending, use a Band-Aid to splint the joint and protect from the environment. *What to do: *Please continue to take your regular medications as directed. [ ] New medication prescriptions sent to your pharmacy: [ ] [ ] New medication written as a paper prescription [ x] No new medications given *Please follow up with your primary care provider in 2-3 days, call for an appointment. Let them know you were seen in the Emergency Department and that we asked that you be seen for follow-up. We will electronically transmit a record of today's note if your PCP is in our system *If you do not have a primary care provider please contact [phone] to establish care with one of the [facility] primary care providers. *Return to Emergency Department if you should have any new, worsening, or concerning symptoms, such as [fever greater than 101F, chills, worsening pain, persistent vomiting or other bothersome symptoms]. Prescriptions: No Action bupropion HCl 300 mg tablet extended release 24 hr 300 mg PO QAM Qty: 90 4RF buspirone 7.5 mg tablet 7.5 mg PO TID Qty: 270 4RF citalopram 40 mg tablet 40 mg PO DAILY Qty: 90 4RF trazodone 100 mg tablet 100 mg PO BEDTIME PRN (Reason: insomnia) Qty: 90 4RF levothyroxine 75 mcg tablet See Rx Instructions .ROUTE .COMPLEX Qty: 90 3RF Dose Instruction: TAKE 1 TABLET BY MOUTH EVERY DAY Rx Instructions: TAKE 1 TABLET BY MOUTH EVERY DAY gabapentin 600 mg tablet 1,200 mg PO TID Qty: 180 11RF alprazolam 0.25 mg tablet 0.25 mg PO DAILY PRN (Reason: panic attack) Qty: 20 0RF Hold Instructions: not prescribing with tramadol Rx Instructions: Minimize use as best as possible with caution regarding sedation and possible falls, especially if taken around time of trazadone, tramadol or other potentially sedating meds. tramadol 50 mg tablet 100 mg PO Q6H PRN (Reason: pain) Qty: 240 1RF Referrals: Rosa Maria Clark DO [Primary Care Provider] - Stand Alone Forms: Patient Portal/API <Souleymane Wiggins DO - Last Filed: 09/24/22 02:49> Cosign ED Attending Cosignature Attestation: I was immediately available in the department for consultation. This documentation has been reviewed and I agree with assessment and plan. Supervised by Souleymane Wiggins,
[2022-09-23] MEDS: ACETAMINOPHEN 325 MG TABLET 975 MG PO (18:30)
[2022-09-23] MEDS: IBUPROFEN 400 MG TABLET 600 MG PO (18:35)
== END 2022-09-23 18:48 | disposition home or self-care (01) ==
PROVIDERS: Emergency Provider Nurse Practitioner Critical Care Medicine; PCP Family Medicine
DX: S61.217A Laceration without foreign body of left little finger without damage to nail, initial encounter (principal); W26.0XXA Contact with knife, initial encounter
CPT/HCPCS: 12001; 99283

== ENCOUNTER → 2023-01-05 09:30 | Outpatient (CLI) | payer OTHER, MEDICAID, SELFPAY ==
[2023-01-05 10:13] LABS: Add Manual Diff / Slide Review NO; Basophils Absolute Auto 0 /uL (0-100); Basophils Percent Auto 0.2 % (0-2); Eosinophils Absolute Auto 0 /uL (0-450); Eosinophils Percent Auto 0.3 % (2-4); Hematocrit 31.7 % (36-46); Hemoglobin 11.1 g/dL (12.0-16.0); Lymphocytes Absolute Auto 1500 /uL (1100-4500); Lymphocytes Percent Auto 20.8 % (25-40); Mean Corpuscular HGB Conc 34.9 % (30-36); Mean Corpuscular Hemoglobin 30.4 PG (26-34); Mean Corpuscular Volume 86.9 fL (80-100); Monocytes Absolute Auto 300 /uL (0-900); Monocytes Percent Auto 4.2 % (3-14); Neutrophils Absolute Auto 5600 /uL (1500-7000); Neutrophils Percent Auto 74.5 % (50-75); Platelet Count 179 X10^3/uL (150-400); Red Blood Cell Count 3.64 X10^6/uL (4.0-5.2); Red Cell Distribution Width 12.8 % (11.6-14.8); White Blood Cell Count 7.5 X10^3/uL (4.5-11.0)
[2023-01-05 10:49] LABS: Free T4, Direct Thyroxine 0.88 ng/dL (0.78-2.19)
[2023-01-05 11:01] LABS: Thyroid Stimulating Hormone 1.77 uIU/mL (0.47-4.68)
[2023-01-06 10:45] LABS: Varicella IgG Antibody 471 index (Immune >165)
[2023-01-07 18:11] LABS: Hepatitis B Surface Antigen NEGATIVE s/c (NEGATIVE); Rubella Antibody IgG 4.1 IU/mL (>15)
[2023-01-07 18:51] LABS: HIV 1 & 2 Ab/Ag 4th Gen Combo NEGATIVE (NEGATIVE); Hep C Virus Ab w/Reflex Quant NEGATIVE s/c (NEGATIVE)
[2023-01-08 06:06] LABS: RPR Screen Non Reactive (Non Reactive)
== END ==
PROVIDERS: PCP Family Medicine; Referring Provider Obstetrics & Gynecology; Visit Provider Obstetrics & Gynecology
DX: Z34.81 Encounter for supervision of other normal pregnancy, first trimester (principal); E03.9 Hypothyroidism, unspecified
CPT/HCPCS: 36415; 80055; 84439; 84443; 86787; 86803; 86850; 86900; 86901; 87086; 87389

== ENCOUNTER → 2023-01-29 16:18 | Outpatient (CLI) | payer OTHER, MEDICAID, SELFPAY ==
[2023-01-29 20:11] LABS: Urine N gonorrhoeae NOT DETECTED
[2023-01-29 20:15] LABS: Urine Chlamydia NOT DETECTED
== END ==
PROVIDERS: PCP Family Medicine; Visit Provider Obstetrics & Gynecology
DX: Z34.81 Encounter for supervision of other normal pregnancy, first trimester (principal); Z3A.13 13 weeks gestation of pregnancy
CPT/HCPCS: 87491; 87591

== ENCOUNTER → 2023-02-28 08:36 | Outpatient (CLI) | payer OTHER, MEDICAID, SELFPAY ==
[2023-03-02 19:16] LABS: AFP Value 52.9 ng/mL (.); Gest Age on Col Date 17.7 weeks (.); Insulin Dep Diabetes No (.); OSBR Risk 1IN 6301 (.); Results Report (.); Test Results *Screen Negative* (.)
== END ==
PROVIDERS: Family Provider Family Medicine; PCP Family Medicine; Referring Provider Obstetrics & Gynecology; Visit Provider Obstetrics & Gynecology
DX: Z34.82 Encounter for supervision of other normal pregnancy, second trimester (principal); Z3A.17 17 weeks gestation of pregnancy
CPT/HCPCS: 36415; 82105

== ENCOUNTER → 2023-03-18 08:50 | Outpatient (CLI) | payer OTHER, MEDICAID, SELFPAY ==
--- NOTE | 2023-03-18 08:51 | DI.US.S_ITS ---
PROCEDURE: US OB >= 14 WEEKS FETUS INDICATIONS: ANATOMY SCAN OUTSIDE/PRIOR DATING DATA: Last menstrual period (LMP): 10/27/2022 LMP-based estimated date of delivery (DORENE): 08/03/2023 First dating scan (date and location): Not available Estimated date of delivery (DORENE) from first dating scan: Not available The calculations are made using the working DORENE of 08/03/2023. TECHNIQUE: Real-time scanning was performed of the fetus, with image documentation and biometric measurements. Endovaginal scanning: Not indicated COMPARISON: [facility], , OB >= 14 WEEKS FETUS, 05/20/2018, 12:09. FINDINGS: General: A single living intrauterine gestation is present. Presentation: Breech Placenta: Placental position is anterior, without previa. Amniotic fluid index: 10.3 cm, normal range is 5-24 cm. Single deepest vertical pocket is 3.6 cm. heart rate: 155 beats per minute. Maternal cervical canal: 4.9 cm long. Normal lower limit is 2.5 cm. biometrics: Biparietal diameter: 4.5 cm, 19 weeks, 4 days. Head circumference: 17.8 cm, 20 weeks, 2 days. Abdominal circumference: 14.6 cm, 19 weeks, 6 days. Femur length: 3.1 cm, 19 weeks, 5 days. Clinically estimated gestational age: 20 weeks, 2 days. Composite gestational age from present scan: 19 weeks, 6 days. Estimated weight and percentile: 316 g, 23%. Anatomic survey: Neuro: Ventricles are non-dilated at less than 10 mm. Cisterna magna is normal at 3-11 mm. Cerebellum is normal in size and morphology. Nuchal skin fold: Normal at less than 6 mm between 14-21 weeks gestational age. Face: Nose and lips, facial profile are normal. Spine: No evidence for spina bifida. Heart: 4-chambered heart is present, with normal ventricular outflow tracts. Diaphragm: Diaphragm is intact. Stomach: Left-sided stomach is present. Kidneys: No hydronephrosis. Normal is less than 5 mm in 2nd trimester, less than 7 mm in 3rd trimester. Cord: 3-vessel cord has orthotopic insertion. Bladder: Normal in size. Extremities: All 4 extremities identified. IMPRESSION: 1. Single live intrauterine gestation with fetus in breech presentation. heart rate is 155 beats per minute. Normal amount of amniotic fluid. Normal growth. Estimated weight is at 23rd percentile. 2. Normal anatomic survey. We strive to produce accurate, complete, and clear reports of imaging services. To assist us in improving patient care, this report was composed using standard report templates and voice recognition software. Therefore, it may contain abnormal punctuation, insertions and/or omissions. Occasional wrong-word or sound-alike substitutions may occur. Though we review the report and make efforts to correct it, we do recommend that the report be read carefully in proper context to recognize any text inaccuracies. Dictated by: Peter Ching M.D. on 03/18/2023 at 11:59 Approved by: Peter Ching M.D. on 03/18/2023 at 12:01
== END ==
PROVIDERS: Family Provider Family Medicine; PCP Family Medicine; Referring Provider Obstetrics & Gynecology; Visit Provider Obstetrics & Gynecology
DX: Z34.82 Encounter for supervision of other normal pregnancy, second trimester (principal); Z3A.19 19 weeks gestation of pregnancy
CPT/HCPCS: 76811

== ENCOUNTER 2023-04-19 18:44 | Observation (INO) | payer OTHER, MEDICAID, SELFPAY ==
--- NOTE | 2023-04-19 19:21 | DI.US.S_ITS ---
PROCEDURE: US OB LIMITED INDICATIONS: BLEEDING AND CONTRACTIONS. CERVICAL LENGTH. OUTSIDE/PRIOR DATING DATA: Last menstrual period (LMP): 10/27/2022. LMP-based estimated date of delivery (DORENE): 08/03/2023. First dating scan (date and location): 01/01/2023. Estimated date of delivery (DORENE) from first dating scan: 08/05/2023. The calculations are made using the working DORENE of 08/03/2023. TECHNIQUE: Real-time scanning was performed of the fetus, with image documentation and biometric measurements. COMPARISON: [facility], , OB <= 14 WEEKS FETUS, 01/01/2023, 14:57. [facility], OB <= 14 WEEKS FETUS, 01/29/2023, 16:03. [facility], US OB >= 14 WEEKS FETUS, 03/18/2023, 8:59. FINDINGS: General: A single living intrauterine gestation is present. Presentation: Vertex. Placenta: Placental position is anterior, without previa. No definite periplacental fluid collections to suggest abruption. Amniotic fluid index: 8.6 cm, normal range is 5-24 cm. Single deepest vertical pocket is 4.6 cm. heart rate: 144 beats per minute. Maternal cervical canal: 3.7 cm long. Normal lower limit is 2.5 cm. The cervix is closed. No funneling. Clinically estimated gestational age: 24 weeks 6 days Other: Stomach not visualized on limited evaluation of the fetus. IMPRESSION: 1. Single living intrauterine demonstrated in vertex presentation. 2. Cervix is closed and appears normal in length. 3. ROQUE within normal limits. We strive to produce accurate, complete, and clear reports of imaging services. To assist us in improving patient care, this report was composed using standard report templates and voice recognition software. Therefore, it may contain abnormal punctuation, insertions and/or omissions. Occasional wrong-word or sound-alike substitutions may occur. Though we review the report and make efforts to correct it, we do recommend that the report be read carefully in proper context to recognize any text inaccuracies. Dictated by: Douglas Wong M.D. on 04/19/2023 at 21:40 Approved by: Douglas Wong M.D. on 04/19/2023 at 21:46
[2023-04-19] MEDS: LACTATED RINGERS 1,000 ML 500 ML IV (19:34)
[2023-04-19 19:48] LABS: Add Manual Diff / Slide Review NO; Basophils Absolute Auto 100 /uL (0-100); Basophils Percent Auto 0.5 % (0-2); Eosinophils Absolute Auto 100 /uL (0-450); Eosinophils Percent Auto 0.7 % (2-4); Hematocrit 29.7 % (36-46); Hemoglobin 10.1 g/dL (12.0-16.0); Lymphocytes Absolute Auto 2500 /uL (1100-4500); Lymphocytes Percent Auto 22.3 % (25-40); Mean Corpuscular Hemoglobin 29.7 PG (26-34); Mean Corpuscular Volume 87.3 fL (80-100); Monocytes Absolute Auto 800 /uL (0-900); Monocytes Percent Auto 6.7 % (3-14); Neutrophils Absolute Auto 8000 /uL (1500-7000); Neutrophils Percent Auto 69.8 % (50-75); Platelet Count 158 X10^3/uL (150-400); Red Blood Cell Count 3.41 X10^6/uL (4.0-5.2); Red Cell Distribution Width 12.9 % (11.6-14.8); White Blood Cell Count 11.4 X10^3/uL (4.5-11.0)
[2023-04-19 20:25] LABS: Appearance Urine UA CLEAR; Bilirubin Urine UA NEGATIVE (NEGATIVE); Color Urine UA YELLOW; Glucose Urine UA NEGATIVE (Negative); Ketones Urine UA TRACE (NEGATIVE); Leukocyte Esterase Urine UA NEGATIVE (NEGATIVE); Nitrite Urine UA NEGATIVE (Negative); Occult Blood Urine UA NEGATIVE (Negative); Protein Urine UA NEGATIVE (Negative); Urobilinogen Urine UA 0.2 E.U./dL (0.2)
[2023-04-19 20:29] LABS: pH Urine UA 5.5 (4.5-8.0)
[2023-04-19 20:36] LABS: Bacteria Urine None Seen; Culture Indicated Urine Cult Not Indicated; RBC Urine None Seen (0-5/HPF); Squamous Epithelial Cell Urine 0-1 /HPF (0-5/HPF); WBC Urine 0-1/HPF (0-5/HPF)
[2023-04-19] MEDS: NIFEdipine 10 MG CAPSULE PO ×4 (21:17→22:17)
[2023-04-19] MEDS: LACTATED RINGERS 1,000 ML 100 ML IV (23:52)
== END 2023-04-20 06:36 | disposition home or self-care (01) ==
PROVIDERS: Admitting Provider Obstetrics & Gynecology; Family Provider Family Medicine; PCP Family Medicine; Referring Provider Obstetrics & Gynecology; Visit Provider Obstetrics & Gynecology
DX: O26.852 Spotting complicating pregnancy, second trimester (principal); O47.02 False labor before 37 completed weeks of gestation, second trimester; Z3A.24 24 weeks gestation of pregnancy
CPT/HCPCS: 59025; 59050; 76815; 76830; 81001; 85025; 96360; G0378; G0379

== ENCOUNTER → 2023-04-22 12:49 | Outpatient (CLI) | payer OTHER, MEDICAID, SELFPAY ==
[2023-04-22 14:22] LABS: Hematocrit 31.6 % (36-46)
[2023-04-22 15:00] LABS: GTT (PREG) 1 Hour PP 50gm Dose 135 mg/dL (76-139)
== END ==
PROVIDERS: Family Provider Family Medicine; PCP Family Medicine; Referring Provider Obstetrics & Gynecology; Visit Provider Obstetrics & Gynecology
DX: Z34.82 Encounter for supervision of other normal pregnancy, second trimester (principal); Z3A.26 26 weeks gestation of pregnancy
CPT/HCPCS: 36415; 82950; 85014; 85018

== ENCOUNTER → 2023-04-23 09:59 | Outpatient (CLI) | payer OTHER, MEDICAID, SELFPAY ==
[2023-04-23 13:49] LABS: Fetal Fibronectin Negative
== END ==
PROVIDERS: Family Provider Family Medicine; PCP Family Medicine; Visit Provider Obstetrics & Gynecology
DX: O47.00 False labor before 37 completed weeks of gestation, unspecified trimester (principal)
CPT/HCPCS: 82731

== ENCOUNTER 2023-04-30 10:30 | Outpatient (RCR) | payer OTHER, MEDICAID, SELFPAY ==
--- NOTE | 2023-04-09 17:00 | PT.OPPOC ---
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) Spinal stenosis, lumbosacral region (04/09/23) Other intervertebral disc displacement, lumbar region (04/09/23) Sacrococcygeal disorders, not elsewhere classified (04/09/23) Sciatica, left side (04/09/23) Lumbago with sciatica, left side (04/09/23) Myalgia, unspecified site (04/09/23) Strain of muscle, fascia and tendon of lower back, initial encounter (04/09/23) Strain of muscle, fascia and tendon of lower back, subsequent encounter (04/09/23) Visit Care Team Role Provider Type Chay Wong MD Family Provider Physician Primary Care Provider Specialty: [facility] Address: [address] [place] [address], [facility] Email: [email or web address] [email or web address] Deras MD Attending Provider Physician Referring Provider Specialty: [facility] Address: [address] [place] [address], [facility] Phone: Fax: Email: [email or web address] Plan Of Care PT-OP-T Assessment and Plan Start: 04/09/23 09:59 Freq: Status: Active Protocol: Document 04/09/23 10:00 [facility] (Rec: 04/10/23 09:13 [facility] [id number]) Physical Therapy Assessment Rehab Potential Rehabilitation Potential Excellent Evaluation Complexity Number of Personal Factors/Comorbidities 0 Number of Body Systems Impaired 1-2 Clinical Presentation at Evaluation Stable Impairments Impairments Activity Tolerance,Functional Activities,Functional Mobility ,Pain,Posture,Soft Tissue Mobility,Strength,Tone Goals 3 Impairment Increased lumbar lordosis with and lumbar paraspinal guarding, This guarding limits standing positions due to increased pain. Short Term Goal (STG) Arleen is educated on postural modifications to reduce strain to the lumbar spine and to minimize her lordosis with STG Duration 4 weeks Half-Way Goal (LTG) [place] presents with overall reduction of lumbar spinal muscle guarding and spams and she is able to tolerate standing for work related activites and ADL's LTG Duration 12 weeks 2 Impairment SI instability with , right leg longer in supine with anterior rotated innominant Short Term Goal (STG) Arleen is educated in body mechanics, postural training, and SI bracing exercises to assist with SI alignement STG Duration 4 weeks Plier Worker Goal (LTG) With manual therapy techniques and HEP Arleen is able to keep her SI joint in alignment LTG Duration 12 weeks 1 Impairment LBP that is exacerbated by rated 6/10 in the low back, 8/10 left SI and buttock with radicular symptoms, 5/10 right SI Short Term Goal (STG) Arleen is educated on related stretches and stabilization for HEP to assist in lowering pain levels STG Duration 4 weeks Plier Worker Goal (LTG) With manual therapy techniques and exercise program Arleen is able to manage her pain levels and reduce radicular symptoms. LTG Duration 12 weeks Assessment Summary Assessment Arleen is a 37 year old female 3 para 2 who is 5 months . She has a history chronic back pain from disc herniations and foraminal stenosis. She has managed her back pain with medication but due to she has cut her pain meds in half. She seeks PT to help manage her pain that is exacerbated by her . She has difficulty sleeping due to pain and does require sleeping medication. Arleen's chief complaints of pain is in the SI joint with the left side being the worst. She rates her pain as 6/10 in her low back and 8/10 in the left SI joint region and buttock. She is a 5/10 for the right SI and buttock. She describes radicular pain that radiates down the left LE . With exam today Arleen stands with a increased lordosis and guarding of her paraspinals, she presents with decreased lumbar flexion. SLR is very limited B and + on the left for increased radicular symptoms at 40 degrees. She is anteriorly rotated with her right innominant and right leg is longer in supine. There is related core weakness. Manual therapy techniques were performed today to align the SI joint and Arleen was educated on a HEP for stabilization and lumbar paraspinals stretching. She tolerated this well. Arleen is a good candidate for PT and plan of care will include postural modifications during , core stabilization, stretches, manual therapy techniques, and body mechanics training. Physical Therapy Plan Frequency and Duration Frequency of Treatment 1x/Week Duration of treatment (weeks) 12 Plan of Care Start Date 04/09/23 Plan of Care End Date 07/02/23 Therapeutic Interventions Therapeutic Interventions Home Exercise Program,Joint Mobilizations,Manual Therapy, Neuromuscular Re-education, Patient/Caregiver Education, Self-Care/Home Management,Soft Tissue Mobilization, Therapeutic Exercises Next Visit Focus/Plan Next Note Type Treatment Note Next Visit Plan Review exercises given at today's appointment, reassess leg length, add quadruped sidebends and rotation, manual therapy techniques to reduce tone in the lumbar paraspinals . Plan of Care Dates Plan of Care Start Date 04/09/23 Plan of Care End Date 07/02/23 Electronically Signed by: Disha López, PT 04/10/23 1950 If you are in agreement with this Plan of Care, please return a signed and dated copy. I have reviewed this Plan of Care and certify that the skilled therapy services above are required to meet the patient?s needs. Physician Signature Date Printed Name and Credentials Clinical Instructor Signature Printed Name and Credentials
--- NOTE | 2023-04-09 17:00 | PT.OIE ---
Current Diagnoses Hypothyroidism, unspecified (04/09/23) Psoriasis, unspecified (04/09/23) Nonscarring hair loss, unspecified (04/09/23) Unspecified inflammatory spondylopathy, lumbar region (04/09/23) Spinal stenosis, lumbosacral region (04/09/23) Other intervertebral disc displacement, lumbar region (04/09/23) Sacrococcygeal disorders, not elsewhere classified (04/09/23) Sciatica, left side (04/09/23) Lumbago with sciatica, left side (04/09/23) Myalgia, unspecified site (04/09/23) Strain of muscle, fascia and tendon of lower back, initial encounter (04/09/23) Strain of muscle, fascia and tendon of lower back, subsequent encounter (04/09/23) Past Medical History (Last Updated 12/04/22 @ 15:42 by Khadijah Nguyen RN) Abnormal Pap smear of cervix Alopecia Anemia Anxiety Bronchitis Depression (12/03/13) Depression Edema of both lower legs Face presentation of fetus Foraminal stenosis of lumbosacral region Goiter (01/01/18) Headache Hemorrhoid Human papilloma virus Hypothyroidism (05/25/15) Irregular menstrual cycle IUD strings lost IUD surveillance Migraines Panic attack labor Psoriasis Shoulder pain Tobacco use disorder (05/25/15) Vaginal delivery Past Surgical History (Last Reviewed 09/23/22 @ 19:26 by Rebeka Reed [facility]) Anesthesia History of third molar tooth extraction Status post wrist surgery Visit Care Team Role Provider Type Chay Wong MD Family Provider Physician Primary Care Provider Specialty: [facility] Address: [address] [place] [address], [id number] Email: [email or web address] Hilary Deras MD Attending Provider Physician Referring Provider Specialty: [facility] Address: [address] [place] [address], [id number] Phone: Fax: Email: [email or web address] Physical Therapy Initial Evaluation PT-OP-A Visit Information Start: 04/09/23 09:59 Freq: Status: Active Protocol: Document 04/09/23 10:00 [facility] (Rec: 04/09/23 15:58 [facility] [id number]) Out-Patient Physical Therapy Visit Information Visit Information Visit Type Initial Evaluation Visit Start Time 10:00 Visit Stop Time 10:45 Total Visit Minutes 45 Visit Number 1 Evaluation Information Evaluation Date 04/09/23 PT-OP-B Current Condition Start: 04/09/23 09:59 Freq: Status: Active Protocol: Document 04/09/23 10:00 [facility] (Rec: 04/09/23 10:49 [facility] [id number]) Current Condition History of Current Condition Current Complaints left >Right side SI pain with , left radicular pain History of Current Condition 3 para 2 with c/o SI joint pain with , currently 5 months . LEft greater than right sided SI and hip pain and radicular pain down the left leg Dull pain across the mid back. She also has neck and upper back pain. She is stretching every day. She also reports pelvic pressure. Arleen has a SI belt but notes her baby starts kicking quite a bit when she wears it and she feels it can help only at times Treatment Goals Patient/Caregiver Goals pt's goals include managing her pain during as she has cut her pain meds in half due to being Current Functional Impairments (Reported) Functional Limitations- ADL's limited in sitting greater than a hour, standing increases pain, pt requires sleeping medication due to pain during the night and if she wakes up she cannot go back to sleep. Functional Limitations- Mobility/Gait pain prevents pt from walking more than 1 mile PT-OP-C Subjective Start: 04/09/23 09:59 Freq: Status: Active Protocol: Document 04/09/23 10:00 [facility] (Rec: 04/10/23 07:57 [facility] [id number]) Patient Questionnaires Oswestry Low Back Index Oswestry Score 16 Oswestry Impairment 1 to 19% Impaired (Score 1-19) OP-PT Pain Assessment Location Right Si and buttock Intensity 5 left sided SI pain and buttock pain Pain Location Details Left SI and buttock Intensity 8 Scale Used Numeric (0 - 10) Description Aching,Radiating Description- Other pain radiates down the left leg to the ankle Pain Aggravating Factors Standing,Sitting,Walking,Stair Climbing,Bending low back pain Pain Location Details low back pain Intensity 6 Scale Used Numeric (0 - 10) Frequency Daily PT-OP-F Manual Assessment Start: 04/09/23 09:59 Freq: Status: Active Protocol: Document 04/09/23 10:00 [facility] (Rec: 04/10/23 09:00 [facility] [id number]) Manual Assessments Soft Tissue Assessment Soft Tissue Mobility Assessment tightness and guarding of the lumbar paraspinals, left greater than right piriformis Joint Mobility Assessment Joint Mobility Assessment SI joint instability with right ASIS in a anteriorly rotated position and right leg longer than left in supine PT-OP-J Posture/Palpation/Skin Start: 04/09/23 09:59 Freq: Status: Active Protocol: Document 04/09/23 10:00 [facility] (Rec: 04/10/23 07:59 [facility] [id number]) Posture Evaluation Comments Posture Comments pt is 5 months and stands with a increased lordosis Palpation Assessment Location lumbar paraspinals Palpation Findings Soft Tissue Tightness,Spasm, Muscle Guarding piriformis L Palpation Findings Soft Tissue Tightness,Spasm, Muscle Guarding SI joints B Palpation Location SI joints B Palpation Findings Tenderness Palpation Details Tenderness L>R SI joints anteriorly rotated right innominant PT-OP-K Range of Motion Start: 04/09/23 09:59 Freq: Status: Active Protocol: Document 04/09/23 10:00 [facility] (Rec: 04/10/23 09:02 [facility] [id number]) Lumbar Spine Range of Motion Lumbar Spine Active Testing Position Standing Flexion 60 Extension 10 Rotation Left 30 Rotation Right 30 Lateral Flexion Left 10 Lateral Flexion Right 10 ROM Limitations Soft Tissue Tightness Comments decreased lumbar flexion and sidebending and pt is guarded in lumbar paraspinals PT-OP-L Special Tests Start: 04/10/23 11:42 Freq: Status: Active Protocol: Document 04/09/23 10:00 [facility] (Rec: 04/10/23 11:46 [facility] [id number]) Special Tests Lumbar Spine Special Tests Straight Leg Raise Test Results positive on the left Comments 40 deg SLR with increased radicular symptoms on the left side PT-OP-M Strength Start: 04/09/23 09:59 Freq: Status: Active Protocol: Document 04/09/23 10:00 [facility] (Rec: 04/10/23 11:46 [facility] [id number]) Trunk Strength Trunk Manual Muscle Testing Core Stabilization decreased core activation and stretch weakness of the Transverse abdominals with , pt is able to contract her transverse abdominals in quadruped but has difficulty with endurance holds of the TA. PT-OP-Q Treatments Start: 04/09/23 09:59 Freq: Status: Active Protocol: Document 04/09/23 10:00 [facility] (Rec: 04/09/23 15:58 [facility] [id number]) Therapeutic Exercises Supine Exercises supine ball squeeze Reps/Minutes x 10 reps Other Exercises cat cow Reps/Minutes x 10 reps quadruped TA Reps/Minutes x 10 reps holding up to 10 sec Manual Therapy Treatment Soft Tissue Mobilization lumbar paraspinal Body Location lumbar paraspinals Mobilization Type Myofascial Release Body Position Hooklying Comments body pillow was used to allow pt to lay comfortably in supine, good tolerance PT-OP-T Assessment and Plan Start: 04/09/23 09:59 Freq: Status: Active Protocol: Document 04/09/23 10:00 [facility] (Rec: 04/10/23 09:13 [facility] [id number]) Physical Therapy Assessment Rehab Potential Rehabilitation Potential Excellent Evaluation Complexity Number of Personal Factors/Comorbidities 0 Number of Body Systems Impaired 1-2 Clinical Presentation at Evaluation Stable Impairments Impairments Activity Tolerance,Functional Activities,Functional Mobility ,Pain,Posture,Soft Tissue Mobility,Strength,Tone Goals 3 Impairment Increased lumbar lordosis with and lumbar paraspinal guarding, This guarding limits standing positions due to increased pain. Short Term Goal (STG) Arleen is educated on postural modifications to reduce strain to the lumbar spine and to minimize her lordosis with STG Duration 4 weeks Snf Goal (LTG) [place] presents with overall reduction of lumbar spinal muscle guarding and spams and she is able to tolerate standing for work related activites and ADL's LTG Duration 12 weeks 2 Impairment SI instability with , right leg longer in supine with anterior rotated innominant Short Term Goal (STG) Arleen is educated in body mechanics, postural training, and SI bracing exercises to assist with SI alignement STG Duration 4 weeks Snf Goal (LTG) With manual therapy techniques and HEP Arleen is able to keep her SI joint in alignement LTG Duration 12 weeks 1 Impairment LBP that is excaccerbated by rated 6/10 in the low back, 8/10 left SI and buttock with radicular symptoms, 5/10 right SI Short Term Goal (STG) Arleen is educated on related stretches and stabilization for HEP to assist in lowering pain levels STG Duration 4 weeks Butter Melter Goal (LTG) With manual therapy tecniques and exercise program Arleen is able to manage her pain levels and reduce radicular symptoms. LTG Duration 12 weeks Assessment Summary Assessment Arleen is a 37 year old female 3 para 2 who is 5 months . She has a history chronic back pain from disc herniations and foraminal stenosis. She has managed her back pain with medication but due to she has cut her pain meds in half. She seeks PT to help manage her pain that is exaccerbated by her . She has difficulty sleeping due to pain and does require sleeping medication. Arleen's chief complaints of pain is in the SI joint with the left side being the worst. She rates her pain as 6/10 in her low back and 8/10 in the left SI joint region and buttock. She is a 5/10 for the right SI and buttock. She describes radicular pain that radiates down the left LE . With exam today Arleen stands with a increased lordosis and guarding of her paraspinals, she presents with decreased lumbar flexion. SLR is very limited B and + on the left for increased radicular symptoms at 40 degrees. She is anteriorly rotated with her right innominant and right leg is longer in supine. There is related core weakness. Manual therapy techniques were performed today to align the SI joint and Arleen was educated on a HEP for stabilization and lumbar paraspinals stretching. She tolerated this well. Arleen is a good candidate for PT and plan of care will include postural modifications during , core stabilization, stretches, manual therapy techniques, and body mechanics training. Physical Therapy Plan Frequency and Duration Frequency of Treatment 1x/Week Duration of treatment (weeks) 12 Plan of Care Start Date 04/09/23 Plan of Care End Date 07/02/23 Therapeutic Interventions Therapeutic Interventions Home Exercise Program,Joint Mobilizations,Manual Therapy, Neuromuscular Re-education, Patient/Caregiver Education, Self-Care/Home Management,Soft Tissue Mobilization, Therapeutic Exercises Next Visit Focus/Plan Next Note Type Treatment Note Next Visit Plan Review exercises given at today's appointment, reassess leg length, add quadruped sidebends and rotation, manual therapy techniques to reduce tone in the lumbar paraspinals .
--- NOTE | 2023-04-10 11:50 | PT.OPPOC ---
Physical, Occupational & Speech Therapy At [facility] Current Diagnoses Hypothyroidism, unspecified (04/09/23) Psoriasis, unspecified (04/09/23) Nonscarring hair loss, unspecified (04/09/23) Unspecified inflammatory spondylopathy, lumbar region (04/09/23) Spinal stenosis, lumbosacral region (04/09/23) Other intervertebral disc displacement, lumbar region (04/09/23) Sacrococcygeal disorders, not elsewhere classified (04/09/23) Sciatica, left side (04/09/23) Lumbago with sciatica, left side (04/09/23) Myalgia, unspecified site (04/09/23) Strain of muscle, fascia and tendon of lower back, initial encounter (04/09/23) Strain of muscle, fascia and tendon of lower back, subsequent encounter (04/09/23) Visit Care Team Role Provider Type Chay Wong MD Family Provider Physician Primary Care Provider Specialty: [facility] Address: [address] [place] [address], [facility] Email: [email or web address] Hilary Deras MD Attending Provider Physician Referring Provider Specialty: [facility] Address: [address] [place] [address], [facility] Phone: Fax: Email: [email or web address] Plan Of Care PT-OP-T Assessment and Plan Start: 04/09/23 09:59 Freq: Status: Active Protocol: Document 04/09/23 10:00 [facility] (Rec: 04/10/23 09:13 [facility] [id number]) Physical Therapy Assessment Rehab Potential Rehabilitation Potential Excellent Evaluation Complexity Number of Personal Factors/Comorbidities 0 Number of Body Systems Impaired 1-2 Clinical Presentation at Evaluation Stable Impairments Impairments Activity Tolerance,Functional Activities,Functional Mobility ,Pain,Posture,Soft Tissue Mobility,Strength,Tone Goals 3 Impairment Increased lumbar lordosis with and lumbar paraspinal guarding, This guarding limits standing positions due to increased pain. Short Term Goal (STG) Arleen is educated on postural modifications to reduce strain to the lumbar spine and to minimize her lordosis with STG Duration 4 weeks Assisted Goal (LTG) Arleen presents with overall reduction of lumbar spinal muscle guarding and spams and she is able to tolerate standing for work related activities and ADL's LTG Duration 12 weeks 2 Impairment SI instability with , right leg longer in supine with anterior rotated innominant Short Term Goal (STG) Arleen is educated in body mechanics, postural training, and SI bracing exercises to assist with SI alignment STG Duration 4 weeks Assisted Goal (LTG) With manual therapy techniques and HEP Arleen is able to keep her SI joint in alignment LTG Duration 12 weeks 1 Impairment LBP that is exacerbated by rated 6/10 in the low back, 8/10 left SI and buttock with radicular symptoms, 5/10 right SI Short Term Goal (STG) Arleen is educated on related stretches and stabilization for HEP to assist in lowering pain levels STG Duration 4 weeks Assisted Goal (LTG) With manual therapy techniques and exercise program Arleen is able to manage her pain levels and reduce radicular symptoms. LTG Duration 12 weeks Assessment Summary Assessment Arleen is a 37 year old female 3 para 2 who is 5 months . She has a history chronic back pain from disc herniations and foraminal stenosis. She has managed her back pain with medication but due to she has cut her pain meds in half. She seeks PT to help manage her pain that is exacerbated by her . She has difficulty sleeping due to pain and does require sleeping medication. Arleen's chief complaints of pain is in the SI joint with the left side being the worst. She rates her pain as 6/10 in her low back and 8/10 in the left SI joint region and buttock. She is a 5/10 for the right SI and buttock. She describes radicular pain that radiates down the left LE . With exam today Arleen stands with a increased lordosis and guarding of her paraspinals, she presents with decreased lumbar flexion. SLR is very limited B and + on the left for increased radicular symptoms at 40 degrees. She is anteriorly rotated with her right innominant and right leg is longer in supine. There is related core weakness. Manual therapy techniques were performed today to align the SI joint and Arleen was educated on a HEP for stabilization and lumbar paraspinals stretching. She tolerated this well. Arleen is a good candidate for PT and plan of care will include postural modifications during , core stabilization, stretches, manual therapy techniques, and body mechanics training. Physical Therapy Plan Frequency and Duration Frequency of Treatment 1x/Week Duration of treatment (weeks) 12 Plan of Care Start Date 04/09/23 Plan of Care End Date 07/02/23 Therapeutic Interventions Therapeutic Interventions Home Exercise Program,Joint Mobilizations,Manual Therapy, Neuromuscular Re-education, Patient/Caregiver Education, Self-Care/Home Management,Soft Tissue Mobilization, Therapeutic Exercises Next Visit Focus/Plan Next Note Type Treatment Note Next Visit Plan Review exercises given at today's appointment, reassess leg length, add quadruped sidebends and rotation, manual therapy techniques to reduce tone in the lumbar paraspinals . Plan of Care Dates Plan of Care Start Date 04/09/23 Plan of Care End Date 07/02/23 Electronically Signed by: Disha López, PT 04/10/23 1607 If you are in agreement with this Plan of Care, please return a signed and dated copy. I have reviewed this Plan of Care and certify that the skilled therapy services above are required to meet the patient?s needs. Physician Signature Date Printed Name and Credentials Clinical Instructor Signature Printed Name and Credentials
--- NOTE | 2023-04-23 14:42 | PT.OTN ---
Current Diagnoses Hypothyroidism, unspecified (04/23/23) Psoriasis, unspecified (04/23/23) Nonscarring hair loss, unspecified (04/23/23) Unspecified inflammatory spondylopathy, lumbar region (04/23/23) Spinal stenosis, lumbosacral region (04/23/23) Other intervertebral disc displacement, lumbar region (04/23/23) Sacrococcygeal disorders, not elsewhere classified (04/23/23) Sciatica, left side (04/23/23) Lumbago with sciatica, left side (04/23/23) Myalgia, unspecified site (04/23/23) Strain of muscle, fascia and tendon of lower back, subsequent encounter (04/23/23) Physical Therapy Treatment Note PT-OP-A Visit Information Start: 04/09/23 09:59 Freq: Status: Active Protocol: Document 04/23/23 10:30 [facility] (Rec: 04/23/23 14:42 [facility] [id number]) Out-Patient Physical Therapy Visit Information Visit Information Visit Type Treatment Note Visit Start Time 10:30 Visit Stop Time 11:15 Total Visit Minutes 45 Visit Number 2 PT-OP-B Current Condition Start: 04/09/23 09:59 Freq: Status: Active Protocol: Document 04/09/23 10:00 [facility] (Rec: 04/09/23 10:49 [facility] [id number]) Current Condition History of Current Condition Current Complaints left >Right side SI pain with , left radicular pain History of Current Condition 3 para 2 with c/o SI joint pain with , currently 5 months . LEft greater than right sided SI and hip pain and radicular pain down the left leg Dull pain across the mid back. She also has neck and upper back pain. She is stretching every day. She also reports pelvic pressure. Arleen has a SI belt but notes her baby starts kicking quite a bit when she wears it and she feels it can help only at times Treatment Goals Patient/Caregiver Goals pt's goals include managing her pain during as she has cut her pain meds in half due to being Current Functional Impairments (Reported) Functional Limitations- ADL's limited in sitting greater than a hour, standing increases pain, pt requires sleeping medication due to pain during the night and if she wakes up she cannot go back to sleep. Functional Limitations- Mobility/Gait pain prevents pt from walking more than 1 mile PT-OP-C Subjective Start: 04/09/23 09:59 Freq: Status: Active Protocol: Document 04/23/23 10:32 [facility] (Rec: 04/23/23 11:17 [facility] [id number]) OP-PT Subjective Patient Comments Patient Comments pt had a scare last weekend and had contractions x 8 hours , she started with having pains on the left side of her abdominal region. She was standing all day andthen she went in to have things checked . She was on 4 hours of fluids and then another 4 hours with medications to stop the contractions. PT-OP-F Manual Assessment Start: 04/09/23 09:59 Freq: Status: Active Protocol: Document 04/09/23 10:00 [facility] (Rec: 04/10/23 09:00 [facility] [id number]) Manual Assessments Soft Tissue Assessment Soft Tissue Mobility Assessment tightness and guarding of the lumbar paraspinals, left greater than right piriformis Joint Mobility Assessment Joint Mobility Assessment SI joint instability with right ASIS in a anteriorly rotated position and right leg longer than left in supine PT-OP-J Posture/Palpation/Skin Start: 04/09/23 09:59 Freq: Status: Active Protocol: Document 04/09/23 10:00 [facility] (Rec: 04/10/23 07:59 [facility] [id number]) Posture Evaluation Comments Posture Comments pt is 5 months and stands with a increased lordosis Palpation Assessment Location lumbar paraspinals Palpation Findings Soft Tissue Tightness,Spasm, Muscle Guarding piriformis L Palpation Findings Soft Tissue Tightness,Spasm, Muscle Guarding SI joints B Palpation Location SI joints B Palpation Findings Tenderness Palpation Details Tenderness L>R SI joints anteriorly rotated right innominant PT-OP-K Range of Motion Start: 04/09/23 09:59 Freq: Status: Active Protocol: Document 04/09/23 10:00 [facility] (Rec: 04/10/23 09:02 [facility] [id number]) Lumbar Spine Range of Motion Lumbar Spine Active Testing Position Standing Flexion 60 Extension 10 Rotation Left 30 Rotation Right 30 Lateral Flexion Left 10 Lateral Flexion Right 10 ROM Limitations Soft Tissue Tightness Comments decreased lumbar flexion and sidebending and pt is guarded in lumbar paraspinals PT-OP-L Special Tests Start: 04/10/23 11:42 Freq: Status: Active Protocol: Document 04/09/23 10:00 [facility] (Rec: 04/10/23 11:46 [facility] [id number]) Special Tests Lumbar Spine Special Tests Straight Leg Raise Test Results positive on the left Comments 40 deg SLR with increased radicular symptoms on the left side PT-OP-M Strength Start: 04/09/23 09:59 Freq: Status: Active Protocol: Document 04/09/23 10:00 [facility] (Rec: 04/10/23 11:46 [facility] [id number]) Trunk Strength Trunk Manual Muscle Testing Core Stabilization decreased core activation and stretch weakness of the Transverse abdominals with , pt is able to contract her transverse abdominals in quadruped but has difficulty with endurance holds of the TA. PT-OP-Q Treatments Start: 04/09/23 09:59 Freq: Status: Active Protocol: Document 04/23/23 10:30 [facility] (Rec: 04/23/23 14:42 [facility] [id number]) Manual Therapy Treatment Soft Tissue Mobilization piriformis release B Mobilization Type Myofascial Release,Other Body Position prone over body pillow Comments pt was tight left greater than right piriformis lumbar paraspinal Body Location lumbar paraspinals Mobilization Type Myofascial Release Body Position Hooklying Comments body pillow was used to allow pt to lay comfortably in supine, good tolerance Manual Techniques iliopsoas stretch Body Position tyrel test position with opp leg bent foot flat Reps/Duration hold 1 min each Comments left greater than right side tightness PT-OP-T Assessment and Plan Start: 04/09/23 09:59 Freq: Status: Active Protocol: Document 04/23/23 10:30 [facility] (Rec: 04/23/23 14:42 [facility] [id number]) Physical Therapy Assessment Assessment Summary Assessment Because Arleen had pre term labor and was awaiting further instruction I held off on exercises today and just worked on manual work throughout the paraspinals and gluteals. Arleen tolerated this well. Physical Therapy Plan Frequency and Duration Frequency of Treatment 1x/Week Duration of treatment (weeks) 12 Plan of Care Start Date 04/09/23 Plan of Care End Date 07/02/23 Therapeutic Interventions Therapeutic Interventions Home Exercise Program,Joint Mobilizations,Manual Therapy, Neuromuscular Re-education, Patient/Caregiver Education, Self-Care/Home Management,Soft Tissue Mobilization, Therapeutic Exercises Next Visit Focus/Plan Next Note Type Treatment Note Next Visit Plan Continue with Plan of care if Arleen is not put on bed rest.
--- NOTE | 2023-04-30 16:19 | PT.OTN ---
Current Diagnoses Hypothyroidism, unspecified (04/30/23) Psoriasis, unspecified (04/30/23) Nonscarring hair loss, unspecified (04/30/23) Unspecified inflammatory spondylopathy, lumbar region (04/30/23) Spinal stenosis, lumbosacral region (04/30/23) Other intervertebral disc displacement, lumbar region (04/30/23) Sacrococcygeal disorders, not elsewhere classified (04/30/23) Sciatica, left side (04/30/23) Lumbago with sciatica, left side (04/30/23) Myalgia, unspecified site (04/30/23) Strain of muscle, fascia and tendon of lower back, subsequent encounter (04/30/23) Physical Therapy Treatment Note PT-OP-A Visit Information Start: 04/09/23 09:59 Freq: Status: Active Protocol: Document 04/30/23 10:32 [facility] (Rec: 04/30/23 11:19 [facility] [id number]) Out-Patient Physical Therapy Visit Information Visit Information Visit Type Treatment Note Visit Start Time 10:35 Visit Stop Time 11:20 Total Visit Minutes 45 Visit Number 3 PT-OP-B Current Condition Start: 04/09/23 09:59 Freq: Status: Active Protocol: Document 04/09/23 10:00 [facility] (Rec: 04/09/23 10:49 [facility] [id number]) Current Condition History of Current Condition Current Complaints left >Right side SI pain with , left radicular pain History of Current Condition 3 para 2 with c/o SI joint pain with , currently 5 months . LEft greater than right sided SI and hip pain and radicular pain down the left leg Dull pain across the mid back. She also has neck and upper back pain. She is stretching every day. She also reports pelvic pressure. Arleen has a SI belt but notes her baby starts kicking quite a bit when she wears it and she feels it can help only at times Treatment Goals Patient/Caregiver Goals pt's goals include managing her pain during as she has cut her pain meds in half due to being Current Functional Impairments (Reported) Functional Limitations- ADL's limited in sitting greater than a hour, standing increases pain, pt requires sleeping medication due to pain during the night and if she wakes up she cannot go back to sleep. Functional Limitations- Mobility/Gait pain prevents pt from walking more than 1 mile PT-OP-C Subjective Start: 04/09/23 09:59 Freq: Status: Active Protocol: Document 04/30/23 10:32 [facility] (Rec: 04/30/23 11:19 [facility] [id number]) OP-PT Subjective Patient Comments Patient Comments pt notes she has not had any more contractions and is taking the medication to prevent them. She is feeling sciatic down left leg to her calf. PT-OP-F Manual Assessment Start: 04/09/23 09:59 Freq: Status: Active Protocol: Document 04/09/23 10:00 [facility] (Rec: 04/10/23 09:00 [facility] [id number]) Manual Assessments Soft Tissue Assessment Soft Tissue Mobility Assessment tightness and guarding of the lumbar paraspinals, left greater than right piriformis Joint Mobility Assessment Joint Mobility Assessment SI joint instability with right ASIS in a anteriorly rotated position and right leg longer than left in supine PT-OP-J Posture/Palpation/Skin Start: 04/09/23 09:59 Freq: Status: Active Protocol: Document 04/09/23 10:00 [facility] (Rec: 04/10/23 07:59 [facility] [id number]) Posture Evaluation Comments Posture Comments pt is 5 months and stands with a increased lordosis Palpation Assessment Location lumbar paraspinals Palpation Findings Soft Tissue Tightness,Spasm, Muscle Guarding piriformis L Palpation Findings Soft Tissue Tightness,Spasm, Muscle Guarding SI joints B Palpation Location SI joints B Palpation Findings Tenderness Palpation Details Tenderness L>R SI joints anteriorly rotated right innominant PT-OP-K Range of Motion Start: 04/09/23 09:59 Freq: Status: Active Protocol: Document 04/09/23 10:00 [facility] (Rec: 04/10/23 09:02 [facility] [id number]) Lumbar Spine Range of Motion Lumbar Spine Active Testing Position Standing Flexion 60 Extension 10 Rotation Left 30 Rotation Right 30 Lateral Flexion Left 10 Lateral Flexion Right 10 ROM Limitations Soft Tissue Tightness Comments decreased lumbar flexion and sidebending and pt is guarded in lumbar paraspinals PT-OP-L Special Tests Start: 04/10/23 11:42 Freq: Status: Active Protocol: Document 04/09/23 10:00 [facility] (Rec: 04/10/23 11:46 [facility] [id number]) Special Tests Lumbar Spine Special Tests Straight Leg Raise Test Results positive on the left Comments 40 deg SLR with increased radicular symptoms on the left side PT-OP-M Strength Start: 04/09/23 09:59 Freq: Status: Active Protocol: Document 04/09/23 10:00 [facility] (Rec: 04/10/23 11:46 [facility] [id number]) Trunk Strength Trunk Manual Muscle Testing Core Stabilization decreased core activation and stretch weakness of the Transverse abdominals with , pt is able to contract her transverse abdominals in quadruped but has difficulty with endurance holds of the TA. PT-OP-Q Treatments Start: 04/09/23 09:59 Freq: Status: Active Protocol: Document 04/30/23 10:32 [facility] (Rec: 04/30/23 11:19 [facility] [id number]) Therapeutic Exercises Supine Exercises supine ball squeeze Reps/Minutes x 10 reps holding 5 seconds Other Exercises seated iliopsoas stretch Reps/Minutes hold 1-2 min Comments add next visit cat cow Reps/Minutes x 10 reps Manual Therapy Treatment Soft Tissue Mobilization piriformis release B Mobilization Type Myofascial Release,Other Body Position prone over body pillow Comments pt was tight left greater than right piriformis lumbar paraspinal Body Location lumbar paraspinals Mobilization Type Myofascial Release Body Position Hooklying Comments body pillow was used to allow pt to lay comfortably in supine, good tolerance Manual Techniques MET Type MET for right posterior innominant Body Position Supine Reps/Duration x 5 reps iliopsoas stretch Body Position tyrel test position with opp leg bent foot flat Reps/Duration hold 1 min each PT-OP-T Assessment and Plan Start: 04/09/23 09:59 Freq: Status: Active Protocol: Document 04/30/23 10:30 [facility] (Rec: 04/30/23 16:19 [facility] [id number]) Physical Therapy Assessment Assessment Summary Assessment We returned to ex today as Arleen is not on bed rest and her contractions she was having prior to her last visit had stopped. She tolerated treatment well today. She is tight on the left piriformis and gluteals today Physical Therapy Plan Frequency and Duration Frequency of Treatment 1x/Week Duration of treatment (weeks) 12 Plan of Care Start Date 04/09/23 Plan of Care End Date 07/02/23 Therapeutic Interventions Therapeutic Interventions Home Exercise Program,Joint Mobilizations,Manual Therapy, Neuromuscular Re-education, Patient/Caregiver Education, Self-Care/Home Management,Soft Tissue Mobilization, Therapeutic Exercises Next Visit Focus/Plan Next Note Type Treatment Note Next Visit Plan add in seated iliopsoas stretch next visit, recheck leg length and continue with manual therapy treatments
--- NOTE | 2023-05-07 08:30 | PT-OP ANOTE ---
Chart review cooler worker's message received. Pt called and cancelled today's appt due to having contractions last night and having to spend night in hospital, unable to attend appt today.
--- NOTE | 2023-05-21 08:21 | PT-OP ANOTE ---
Pt cancelled today's appt via text. PACKAGE CHECKER called spoke with pt was airlifted to a [facility] and currently in Labor and Delivery awaiting of her child. She expects to be in hospital approx 1 week and will keep us posted if needs to cancel upcoming appts next week.
--- NOTE | 2023-06-06 15:29 | PT.OPDS ---
Current Diagnoses Hypothyroidism, unspecified (04/30/23) Psoriasis, unspecified (04/30/23) Nonscarring hair loss, unspecified (04/30/23) Unspecified inflammatory spondylopathy, lumbar region (04/30/23) Spinal stenosis, lumbosacral region (04/30/23) Other intervertebral disc displacement, lumbar region (04/30/23) Sacrococcygeal disorders, not elsewhere classified (04/30/23) Sciatica, left side (04/30/23) Lumbago with sciatica, left side (04/30/23) Myalgia, unspecified site (04/30/23) Strain of muscle, fascia and tendon of lower back, subsequent encounter (04/30/23) Visit Care Team Role Provider Type Chay Wong MD Attending Provider Physician Family Provider Primary Care Provider Referring Provider Specialty: Family Practice Address: [address] [place] [address] Email: [email or web address] Visit Number Visit Number 3 Discharge Summary PT-OP-B Current Condition Start: 04/09/23 09:59 Freq: Status: Active Protocol: Document 04/09/23 10:00 [facility] (Rec: 04/09/23 10:49 [facility] [id number]) Current Condition History of Current Condition Current Complaints left >Right side SI pain with , left radicular pain History of Current Condition 3 para 2 with c/o SI joint pain with , currently 5 months . LEft greater than right sided SI and hip pain and radicular pain down the left leg Dull pain across the mid back. She also has neck and upper back pain. She is stretching every day. She also reports pelvic pressure. Arleen has a SI belt but notes her baby starts kicking quite a bit when she wears it and she feels it can help only at times Treatment Goals Patient/Caregiver Goals pt's goals include managing her pain during as she has cut her pain meds in half due to being Current Functional Impairments (Reported) Functional Limitations- ADL's limited in sitting greater than a hour, standing increases pain, pt requires sleeping medication due to pain during the night and if she wakes up she cannot go back to sleep. Functional Limitations- Mobility/Gait pain prevents pt from walking more than 1 mile PT-OP-C Subjective Start: 04/09/23 09:59 Freq: Status: Active Protocol: Document 04/30/23 10:32 [facility] (Rec: 04/30/23 11:19 [facility] [id number]) OP-PT Subjective Patient Comments Patient Comments pt notes she has not had any more contractions and is taking the medication to prevent them. She is feeling sciatic down left leg to her calf. PT-OP-F Manual Assessment Start: 04/09/23 09:59 Freq: Status: Active Protocol: Document 04/09/23 10:00 [facility] (Rec: 04/10/23 09:00 [facility] [id number]) Manual Assessments Soft Tissue Assessment Soft Tissue Mobility Assessment tightness and guarding of the lumbar paraspinals, left greater than right piriformis Joint Mobility Assessment Joint Mobility Assessment SI joint instability with right ASIS in a anteriorly rotated position and right leg longer than left in supine PT-OP-J Posture/Palpation/Skin Start: 04/09/23 09:59 Freq: Status: Active Protocol: Document 04/09/23 10:00 [facility] (Rec: 04/10/23 07:59 [facility] [id number]) Posture Evaluation Comments Posture Comments pt is 5 months and stands with a increased lordosis Palpation Assessment Location lumbar paraspinals Palpation Findings Soft Tissue Tightness,Spasm, Muscle Guarding piriformis L Palpation Findings Soft Tissue Tightness,Spasm, Muscle Guarding SI joints B Palpation Location SI joints B Palpation Findings Tenderness Palpation Details Tenderness L>R SI joints anteriorly rotated right innominant PT-OP-K Range of Motion Start: 04/09/23 09:59 Freq: Status: Active Protocol: Document 04/09/23 10:00 [facility] (Rec: 04/10/23 09:02 [facility] [id number]) Lumbar Spine Range of Motion Lumbar Spine Active Testing Position Standing Flexion 60 Extension 10 Rotation Left 30 Rotation Right 30 Lateral Flexion Left 10 Lateral Flexion Right 10 ROM Limitations Soft Tissue Tightness Comments decreased lumbar flexion and sidebending and pt is guarded in lumbar paraspinals PT-OP-L Special Tests Start: 04/10/23 11:42 Freq: Status: Active Protocol: Document 04/09/23 10:00 [facility] (Rec: 04/10/23 11:46 [facility] [id number]) Special Tests Lumbar Spine Special Tests Straight Leg Raise Test Results positive on the left Comments 40 deg SLR with increased radicular symptoms on the left side PT-OP-M Strength Start: 04/09/23 09:59 Freq: Status: Active Protocol: Document 04/09/23 10:00 [facility] (Rec: 04/10/23 11:46 [facility] [id number]) Trunk Strength Trunk Manual Muscle Testing Core Stabilization decreased core activation and stretch weakness of the Transverse abdominals with , pt is able to contract her transverse abdominals in quadruped but has difficulty with endurance holds of the TA. PT-OP-T Assessment and Plan Start: 04/09/23 09:59 Freq: Status: Active Protocol: Document 06/06/23 15:28 [facility] (Rec: 06/06/23 15:29 [facility] [id number]) Physical Therapy Assessment Assessment Summary Assessment Arleen is at in [place] due to premature labor. She will remain there until she delivers her baby. At this point she will be discharged from PT Physical Therapy Plan Discharge Physical Therapy Discharge Reasons Change in Medical Status
== END 2023-06-07 10:15 | disposition home or self-care (01) ==
LOC: PHYS 10:30
PROVIDERS: Family Provider Family Medicine; PCP Family Medicine; Referring Provider Family Medicine; Visit Provider Family Medicine
DX: M79.10 Myalgia, unspecified site (principal); M48.07 Spinal stenosis, lumbosacral region; M53.3 Sacrococcygeal disorders, not elsewhere classified; M46.96 Unspecified inflammatory spondylopathy, lumbar region; M51.26 Other intervertebral disc displacement, lumbar region; L40.9 Psoriasis, unspecified; L65.9 Nonscarring hair loss, unspecified; E03.9 Hypothyroidism, unspecified; M54.42 Lumbago with sciatica, left side; S39.012D Strain of muscle, fascia and tendon of lower back, subsequent encounter
CPT/HCPCS: 97110; 97140; 97161

== ENCOUNTER 2023-05-06 20:46 | Observation (INO) | payer OTHER, MEDICAID, SELFPAY ==
[2023-05-06] MEDS: NIFEdipine 10 MG CAPSULE PO ×4 (21:10→22:11)
[2023-05-06 22:30] LABS: Fetal Fibronectin Negative
[2023-05-06] MEDS: LACTATED RINGERS 1,000 ML 1000 ML IV (22:51)
== END 2023-05-07 00:29 | disposition home or self-care (01) ==
LOC: LABOR 20:49
PROVIDERS: Admitting Provider Obstetrics & Gynecology; Family Provider Family Medicine; PCP Family Medicine; Referring Provider Obstetrics & Gynecology; Visit Provider Obstetrics & Gynecology
DX: O60.02 Preterm labor without delivery, second trimester (principal); O09.522 Supervision of elderly multigravida, second trimester; Z3A.27 27 weeks gestation of pregnancy
CPT/HCPCS: 59025; 59050; 82731; 96360; G0378; G0379

== ENCOUNTER → 2023-05-10 12:24 | Outpatient (CLI) | payer OTHER, MEDICAID, SELFPAY ==
--- NOTE | 2023-05-10 12:24 | DI.US.S_ITS ---
PROCEDURE: US OB LIMITED INDICATIONS: DECELERATIONS WITH CONTRACTIONS OUTSIDE/PRIOR DATING DATA: Last menstrual period (LMP): 10/27/2022. LMP-based estimated date of delivery (DORENE): 08/03/2023. First dating scan (date and location): 01/01/2023. Estimated date of delivery (DORENE) from first dating scan: 08/05/2023. The calculations are made using the clinical DORENE of 08/03/2023. TECHNIQUE: Real-time scanning was performed of the fetus, with image documentation and biometric measurements. Endovaginal scanning: Not performed COMPARISON: [facility], OB LIMITED, 04/19/2023, 20:12. FINDINGS: General: A single living intrauterine gestation is present. Presentation: Transverse. Placenta: Placental position is anterior , without previa. Amniotic fluid index: 16.0 cm, normal range is 5-24 cm. Single deepest vertical pocket is 4.7 cm. heart rate: 157 beats per minute. Maternal cervical canal: 3.2 cm long. Normal lower limit is 2.5 cm. Clinically estimated gestational age: 27 weeks 6 days Cord Doppler S/D ratios: Cord insertion, 2.6, mid cord 2.9, placental insertion 4.4. Other: Normal appearance of the stomach/abdomen. IMPRESSION: 1. Single live intrauterine at 27 weeks and 6 days. 2. Normal amniotic fluid index. No nuchal cord is seen. 3. Umbilical cord Doppler S/D ratio: Cord insertion, 2.6, mid cord 2.9, placental insertion 4.4. We strive to produce accurate, complete, and clear reports of imaging services. To assist us in improving patient care, this report was composed using standard report templates and voice recognition software. Therefore, it may contain abnormal punctuation, insertions and/or omissions. Occasional wrong-word or sound-alike substitutions may occur. Though we review the report and make efforts to correct it, we do recommend that the report be read carefully in proper context to recognize any text inaccuracies. Dictated by: Gabriel Gorman M.D. on 05/10/2023 at 14:22 Approved by: Gabriel Gorman M.D. on 05/10/2023 at 14:31
== END ==
PROVIDERS: Family Provider Family Medicine; PCP Family Medicine; Referring Provider Obstetrics & Gynecology; Visit Provider Obstetrics & Gynecology
DX: O36.8320 Maternal care for abnormalities of the fetal heart rate or rhythm, second trimester, not applicable or unspecified; O09.522 Supervision of elderly multigravida, second trimester
CPT/HCPCS: 76815

== ENCOUNTER 2023-05-13 08:53 | Observation (INO) | payer OTHER, MEDICAID, SELFPAY ==
--- NOTE | 2023-05-13 10:25 | DI.US.S_ITS ---
PROCEDURE: US OB BIOPHYSICAL PROFILE INDICATIONS: Non-reactive NST OUTSIDE/PRIOR DATING DATA: Last menstrual period (LMP): 10/27/2022. LMP-based estimated date of delivery (DORENE): 08/03/2023. First dating scan (date and location): 01/01/2023. Estimated date of delivery (DORENE) from first dating scan: 08/05/2023. The calculations are made using the clinical DORENE of 08/03/2023. TECHNIQUE: Real-time scanning was performed of the fetus, with image documentation and biometric measurements. Biophysical profile was also obtained. Endovaginal scanning: Not performed COMPARISON: None. FINDINGS: General: A single living intrauterine gestation is present. Presentation: Vertex. Placenta: Placental position is anterior , without previa. Amniotic fluid index: 10.8 cm, normal range is 5-24 cm. Single deepest vertical pocket is 3.0 cm. heart rate: 158 beats per minute. Maternal cervical canal: 3.6 cm long. Normal lower limit is 2.5 cm. Clinically estimated gestational age: 20 weeks 2 days Biophysical profile: Tone: 2 points. Movement: 2 points. Respiration: 2 points. Largest pocket of fluid: 2 points. Umbilical artery Doppler: 2.3 at placenta, 2.9 at umbilicus, 2.7 at mid cord IMPRESSION: 1. Single live intrauterine . Amniotic fluid index is within normal limits. Normal biophysical profile. 2. Cord Doppler is range from 2.3-2.9, as above. We strive to produce accurate, complete, and clear reports of imaging services. To assist us in improving patient care, this report was composed using standard report templates and voice recognition software. Therefore, it may contain abnormal punctuation, insertions and/or omissions. Occasional wrong-word or sound-alike substitutions may occur. Though we review the report and make efforts to correct it, we do recommend that the report be read carefully in proper context to recognize any text inaccuracies. Dictated by: Gabriel Gorman M.D. on 05/13/2023 at 11:19 Approved by: Gabriel Gorman M.D. on 05/13/2023 at 11:23
== END 2023-05-13 11:36 | disposition home or self-care (01) ==
PROVIDERS: Admitting Provider Obstetrics & Gynecology; Family Provider Family Medicine; PCP Family Medicine; Referring Provider Obstetrics & Gynecology; Visit Provider Obstetrics & Gynecology
DX: O09.523 Supervision of elderly multigravida, third trimester (principal); O99.283 Endocrine, nutritional and metabolic diseases complicating pregnancy, third trimester; E07.9 Disorder of thyroid, unspecified; Z3A.28 28 weeks gestation of pregnancy
CPT/HCPCS: 59025; 59050; 76819; 76820; G0378; G0379

== ENCOUNTER 2023-05-13 12:33 | Observation (INO) | payer OTHER, MEDICAID, SELFPAY ==
[2023-05-13] MEDS: LACTATED RINGERS 1,000 ML 100 ML IV (13:21)
[2023-05-13 13:41] LABS: Add Manual Diff / Slide Review NO; Basophils Absolute Auto 0 /uL (0-100); Basophils Percent Auto 0.2 % (0-2); Eosinophils Absolute Auto 0 /uL (0-450); Eosinophils Percent Auto 0.2 % (2-4); Hematocrit 32.4 % (36-46); Hemoglobin 11.1 g/dL (12.0-16.0); Lymphocytes Absolute Auto 1900 /uL (1100-4500); Lymphocytes Percent Auto 23.8 % (25-40); Mean Corpuscular HGB Conc 34.3 % (30-36); Mean Corpuscular Hemoglobin 29.7 PG (26-34); Mean Corpuscular Volume 86.6 fL (80-100); Monocytes Absolute Auto 400 /uL (0-900); Monocytes Percent Auto 5.5 % (3-14); Neutrophils Absolute Auto 5700 /uL (1500-7000); Neutrophils Percent Auto 70.3 % (50-75); Platelet Count 167 X10^3/uL (150-400); Red Blood Cell Count 3.74 X10^6/uL (4.0-5.2); Red Cell Distribution Width 12.8 % (11.6-14.8); White Blood Cell Count 8.2 X10^3/uL (4.5-11.0)
[2023-05-13 13:43] LABS: Alanine Aminotransferase 14 IU/L (<35); Albumin 3.3 g/dL (3.5-5.0); Albumin Globulin Ratio 1.1 (1.0-2.8); Alkaline Phosphatase 90 U/L (38-126); Aspartate Aminotransferase 19 IU/L (14-36); BUN Creatinine Ratio 7.9 (6-22); Bilirubin Total 0.2 mg/dL (0.2-1.3); Blood Urea Nitrogen 3 mg/dL (7-17); Calcium 8.4 mg/dL (8.4-10.2); Carbon Dioxide 22 mmol/L (22-32); Chloride 107 mmol/L (98-107); Estimated Glomerular Filt Rate > 60 mL/min (>60); Globulin 3.1 g/dL (1.7-4.1); Glucose 102 mg/dL (70-100); HEMOLYSIS < 15 (0-50); Potassium 3.6 mmol/L (3.4-5.1); Sodium 132 mmol/L (137-145); Total Protein 6.4 g/dL (6.3-8.2)
[2023-05-13 14:05] LABS: Free T4, Direct Thyroxine 0.85 ng/dL (0.78-2.19)
[2023-05-13 14:18] LABS: Thyroid Stimulating Hormone 0.754 uIU/mL (0.47-4.68)
== END 2023-05-13 17:58 | disposition home or self-care (01) ==
PROVIDERS: Admitting Provider Obstetrics & Gynecology; Family Provider Family Medicine; PCP Family Medicine; Referring Provider Obstetrics & Gynecology; Visit Provider Obstetrics & Gynecology
DX: O09.523 Supervision of elderly multigravida, third trimester (principal); O99.283 Endocrine, nutritional and metabolic diseases complicating pregnancy, third trimester; E07.9 Disorder of thyroid, unspecified; Z3A.28 28 weeks gestation of pregnancy
CPT/HCPCS: 59025; 59050; 76819; 76820; 80053; 84439; 84443; 85025; 86850; 86900; 86901; 96360; G0378; G0379

== ENCOUNTER 2023-05-17 11:26 | Outpatient (CLI) | payer OTHER, MEDICAID, SELFPAY | END 2023-05-17 12:10 | disposition home or self-care (01) | LOC: LABOR 11:38 → OB 05-21 06:14 | PROVIDERS: Family Provider Family Medicine; PCP Family Medicine; Referring Provider Obstetrics & Gynecology; Visit Provider Obstetrics & Gynecology | DX: O09.523 Supervision of elderly multigravida, third trimester (principal); O99.284 Endocrine, nutritional and metabolic diseases complicating childbirth; E07.9 Disorder of thyroid, unspecified; Z3A.28 28 weeks gestation of pregnancy | CPT/HCPCS: 59025; G0378; G0379 ==

== ENCOUNTER 2023-05-18 15:56 | Inpatient (IN) | payer OTHER, MEDICAID, SELFPAY ==
--- NOTE | 2023-05-18 17:56 | DI.US.S_ITS ---
PROCEDURE: US OB BIOPHYSICAL PROFILE INDICATIONS: NON-REASURING NST OUTSIDE/PRIOR DATING DATA: Last menstrual period (LMP): 10/27/2022. LMP-based estimated date of delivery (DORENE): 08/03/23. First dating scan (date and location): 01/01/2023 at . Estimated date of delivery (DORENE) from first dating scan: 08/05/2023. The calculations are made using the working DORENE of 08/03/2023. TECHNIQUE: Real-time scanning was performed of the fetus, with image documentation and biometric measurements. Biophysical profile was also obtained. COMPARISON: [facility], OB LIMITED, 05/10/2023, 12:32. [facility], OB >= 14 WEEKS FETUS, 05/07/2023, 12:08. [facility], OB LIMITED, 04/19/2023, 20:12. [facility] OB >= 14 WEEKS FETUS, 03/18/2023, 8:59. [facility], OB <= 14 WEEKS FETUS, 01/29/2023, 16:03. [facility], OB <= 14 WEEKS FETUS, 01/01/2023, 14:57. [facility] OB BIOPHYSICAL PROFILE, 05/13/2023, 10:42. FINDINGS: General: A single living intrauterine gestation is present. Presentation: Vertex. Placenta: Placental position is anterior , without previa. Amniotic fluid index: 19.2 cm, normal range is 5-24 cm. Single deepest vertical pocket is 6.2 cm. heart rate: 155 beats per minute. Maternal cervical canal: 3 point cm long. Normal lower limit is 2.5 cm. Biophysical profile: Tone: 2 points. Movement: 2 points. Respiration: 0 points. Largest pocket of fluid: 2 points. IMPRESSION: 1. A single living intrauterine gestation redemonstrated. 2. The biophysical profile score 6/8 with 0 point for respiration. We strive to produce accurate, complete, and clear reports of imaging services. To assist us in improving patient care, this report was composed using standard report templates and voice recognition software. Therefore, it may contain abnormal punctuation, insertions and/or omissions. Occasional wrong-word or sound-alike substitutions may occur. Though we review the report and make efforts to correct it, we do recommend that the report be read carefully in proper context to recognize any text inaccuracies. Dictated by: Jewels Esqueda M.D. on 05/18/2023 at 20:38 Approved by: Jewels Esqueda M.D. on 05/18/2023 at 20:42
--- NOTE | 2023-05-19 06:44 | DI.US.S_ITS ---
PROCEDURE: US OB BIOPHYSICAL PROFILE INDICATIONS: 02/21 BIOPHYSICAL AND NON-REASURING NST. REPEAT BPP. OUTSIDE/PRIOR DATING DATA: Last menstrual period (LMP): 10/27/2022. LMP-based estimated date of delivery (DORENE): 08/03/2023. First dating scan (date and location): 01/01/2023. Estimated date of delivery (DORENE) from first dating scan: 08/05/2023. The calculations are made using the menstrual DORENE of 08/03/2023. TECHNIQUE: Real-time scanning was performed of the fetus for biophysical profile, with image documentation. COMPARISON: [facility], , OB >= 14 WEEKS FETUS, 05/07/2023, 12:08. [facility], OB LIMITED, 05/10/2023, 12:32. [facility], OB BIOPHYSICAL PROFILE, 05/13/2023, 10:42. [facility], OB BIOPHYSICAL PROFILE, 05/18/2023, 18:42. FINDINGS: General: A single live intrauterine gestation is present. Presentation: Breech. Placenta: Placental position is anterior , without previa. Amniotic fluid index: 15.9 cm, normal range is 5-24 cm. Single deepest vertical pocket is 6.2 cm. heart rate: 158 beats per minute. Maternal cervical canal: 4 cm long. Normal lower limit is 2.5 cm. Clinically estimated gestational age: 29 weeks 1 day Biophysical profile: Tone: 2 points. Movement: 2 points. Respiration: 2 points. Largest pocket of fluid: 2 points. IMPRESSION: Normal biophysical profile, 04/23 points. We strive to produce accurate, complete, and clear reports of imaging services. To assist us in improving patient care, this report was composed using standard report templates and voice recognition software. Therefore, it may contain abnormal punctuation, insertions and/or omissions. Occasional wrong-word or sound-alike substitutions may occur. Though we review the report and make efforts to correct it, we do recommend that the report be read carefully in proper context to recognize any text inaccuracies. Dictated by: Pop Bennett M.D. on 05/19/2023 at 7:31 Approved by: Pop Bennett M.D. on 05/19/2023 at 7:34
== END 2023-05-19 09:35 | disposition home or self-care (01) | DRG 566 ==
PROVIDERS: Admitting Provider Obstetrics & Gynecology; Family Provider Family Medicine; PCP Family Medicine; Referring Provider Obstetrics & Gynecology; Visit Provider Obstetrics & Gynecology
DX: O45.93 Premature separation of placenta, unspecified, third trimester (principal); O60.03 Preterm labor without delivery, third trimester; O36.8330 Maternal care for abnormalities of the fetal heart rate or rhythm, third trimester, not applicable or unspecified; Z3A.38 38 weeks gestation of pregnancy; O09.523 Supervision of elderly multigravida, third trimester; O99.824 Streptococcus B carrier state complicating childbirth; O99.343 Other mental disorders complicating pregnancy, third trimester; F41.8 Other specified anxiety disorders; F32.A Depression, unspecified; O99.283 Endocrine, nutritional and metabolic diseases complicating pregnancy, third trimester; E03.9 Hypothyroidism, unspecified; E07.9 Disorder of thyroid, unspecified; Z3A.28 28 weeks gestation of pregnancy; Z3A.29 29 weeks gestation of pregnancy
CPT/HCPCS: 59025; 59050; 76815; 76819; 85025; 85384; 85610; 85730; 86850; 86900; 86901; 87635; 96360; 96372; 99233; C9803; G0378; G0379; J0702; J3475

== ENCOUNTER 2023-05-19 10:37 | Observation (INO) | payer OTHER, MEDICAID, SELFPAY ==
--- NOTE | 2023-05-19 11:10 | P.HPOB_ITS ---
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 She came in yesterday with complaint of decreased movement. She had a biophysical profile of 6/8 and a nonstress test which was appropriate for gestational age. We kept her overnight for extended monitoring. She had good ocic-jc-mvdr variability. She had some mild variable decelerations on occasion. Repeat biophysical profile this morning was 8/8. Patient was discharged to home and on upon arrival went to the bathroom and had a large gush of blood. She passed some clots and had some blood on her underwear. She then started to feel some contractions. She immediately returned to the hospital. care: good care, initiated at week # (9), number of visits (6) and pounds weight gain (11) Dating criteria OB: LMP confirmed by 1st trimester US Ultrasounds: normal 1st trimester US and normal mid trimester US Obstetrical complications: other (1 episode of bleeding at 25 wks. contractions) Medical complications OB: other (Hypothyroid, anxiety and depression) Preadmission Labs Last OB Lab Results: Blood Type A Positive 05/13/23 13:06 Antibody Screen Negative 05/13/23 13:06 Hematocrit 30.0 % (36-46) L 05/19/23 11:30 Hemoglobin 10.4 g/dL (12.0-16.0) L 05/19/23 11:30 Hepatitis B Surface Antigen Negative s/c (NEGATIVE) 01/05/23 09 :36 Hepatitis C Antibody Negative s/c (NEGATIVE) 01/05/23 09:36 Rubella Antibody 4.1 IU/mL (>15) L 01/05/23 09:36 Varicella-Zoster IgG Antibody 471 index (Immune >165) 01/05/23 09:36 Glucose 1 Hour 135 mg/dL (76-139) 04/22/23 14:12 Group B Streptococcus (PCR) Pos for grp b strep H 06/25/18 10:4 3 -: Chlamydia screen: negative, Gonorrhea screen: negative and Urine: positive (Lactobacillus) -: PAP smear: Normal (neg HPV) Genetic Screens: Cell-free DNA: Normal (normal male) and Alpha-fetoprotein: Normal External Labs -: Urine: positive (Lactobacillus) Prior (ies) Past Pregnancies Del. Date GA/Weeks Labor Lgth Wt Sex Route Outcome Anesthesia Place Delv Breastfeed Preg Comp Name 04/03/09 40 12 6 lb 12 oz Female vaginal live - full term IH 13 months none Ursula 07/06/18 36.6 6 lb 3 oz Female vaginal live - I H 18 months labor [place] Delivery Date: 07/06/18 Last Updated by: Khadijah Nguyen RN prodromal PTL Evaluation Evaluation Baseline heart rate: 145 Variability: Average (6-10) monitor accelerations: Present Monitor Decelerations: Late (occasional) and Variable (not associated with contractions) Contraction Frequency (minutes): 15 Uterine Contraction Intensity: Mild Category of Tracing: Appropriate for gestational age (except occ lates with contractions) Status: Category ll Dilation (cm): 0 Effacement (%): 0 Effacement: 0-30% [facility] Medical History (Updated 05/09/23 @ 09:16 by Moriah Diop MD) Abnormal Pap smear of cervix Alopecia Anemia Anxiety Bronchitis Depression (12/03/13) Depression Edema of both lower legs Face presentation of fetus Foraminal stenosis of lumbosacral region Goiter (01/01/18) Headache Hemorrhoid Human papilloma virus Hypothyroidism (05/25/15) Irregular menstrual cycle IUD strings lost IUD surveillance Migraines Panic attack labor Psoriasis Shoulder pain Tobacco use disorder (05/25/15) Vaginal delivery Surgical History Anesthesia History of third molar tooth extraction Status post wrist surgery Family History (Updated 12/04/22 @ 15:44 by Khadijah Nguyen RN) Grandmother Diabetes mellitus Father Family estrangement Mother Depression Anxiety Social History marital status: number of children: 3 household members: spouse and children lives independently: Yes caregiver/support person: Yes housing: house pets and animals: Yes (1 cat & 1 dog; aware of toxo precautions) education level: college occupational status: employed current occupational exposures/hazards: No special tami needs: No travel history: recent seatbelt use: always water heater temp set < 120 deg: Yes working smoke detector in home: Yes fire extinguisher in home: Yes carbon monox detector in home: Yes firearms in home: No do you feel safe at home: Yes Smoking Status: Former smoker second hand exposure: No alcohol intake: former substance use type: does not use during the past year weight has: increased > 10 lbs well-balanced diet: daily or most days daily servings fruits/ve or more times/day caffeine: Yes (down from 3 to 1 cup coffee/day) Type(s) of exercise: walking and yoga Meds Home Medications and Allergies Home Medications Medication Instructions Recorded Confirmed Type bupropion HCl 300 mg 24 hr tablet, 300 mg PO QAM #90 tabs 05/31/22 05/07/23 Rx extended release buspirone 7.5 mg tablet 7.5 mg PO TID #270 tabs 05/31/22 05/07/23 Rx levothyroxine 75 mcg tablet See Rx Instructions .Route 06/01/22 05/07/23 Rx .COMPLEX #90 tabs trazodone 100 mg tablet 100 mg PO BEDTIME PRN insomnia #90 06/01/22 05/07/23 Rx tabs prenat.vits,aryan,ruc-qqwo-jqfrl 1 tab PO DAILY 12/04/22 05/07/23 History gabapentin 600 mg tablet 1,200 mg PO TID #180 tabs 02/25/23 05/07/23 Rx duloxetine 60 mg capsule,delayed See Rx Instructions .Route 03/07/23 05/07/23 Rx release .COMPLEX #90 caps tramadol 50 mg tablet 100 mg PO Q6H PRN pain #240 tabs 04/05/23 05/07/23 Rx nifedipine 30 mg tablet,extended 30 mg PO BID Contractions 05/16/23 Rx release #60 tabs Allergies Allergy/AdvReac Type Severity Reaction Status Date / Time clindamycin [CLINDAMYCIN] Allergy Mild rash/itchy Verified 05/07/23 11:49 dexamethasone AdvReac Intermediate abdominal Verified 05/07/23 11:49 pain and diarrhea ketorolac [From TORADOL] AdvReac Intermediate vomiting Verified 05/07/23 11:49 OB Exam Vital signs Blood Pressure: 104/55 Pulse Rate: 88 Respiratory Rate: 18 Temperature: 97.3 F Narrative Exam Narrative: Generally: Patient reclining in bed, moderate distress secondary to situation. Lungs: Clear to auscultation bilaterally Cardiovascular: Regular rate and rhythm Fundal height: 29 cm Uterus: Nontender Extremities: No edema Bedside ultrasound: Double footling breech presentation. AGA 28 weeks 5 days. 2 lb 11 oz. 1220gm, placenta is anterior, no previa. ROQUE 15.9 cm. 4cm cervical length, no funneling. Assessment and Plan Assessment and Plan Assessment and Plan narrative: Assessment: 37-year-old 3 para 2 at 29-,1/7 weeks gestation by last menstrual period, confirmed by 9 week ultrasound Placental abruption Plan: Betamethasone 12 mg IM x1 Covid test sent Magnesium sulfate 4 g IV load, 2 g per hour maintenance dose CBC and coags sent COVID test obtained Transfer to the [facility], Labor and Delivery Accepted by Dr. Skyler Casiano Patient to be transported via [facility] [place] Time Spent with Patient Total time spent with greater than 50% in coordination of care (as documented) at patient's floor/unit and/or counseling patient:: Greater than 35 minutes
[2023-05-19] MEDS: MAGNESIUM SULFATE 4 GM/100 ML PIGGYBACK IV (11:15)
[2023-05-19] MEDS: BETAMETHASONE 30 MG/5 ML MDV 12 MG IM (11:39)
[2023-05-19] MEDS: LACTATED RINGERS 1,000 ML 100 ML IV (11:41)
[2023-05-19 11:46] LABS: Add Manual Diff / Slide Review NO; Basophils Absolute Auto 0 /uL (0-100); Basophils Percent Auto 0.2 % (0-2); Eosinophils Absolute Auto 0 /uL (0-450); Eosinophils Percent Auto 0.3 % (2-4); Hemoglobin 10.4 g/dL (12.0-16.0); Lymphocytes Absolute Auto 1600 /uL (1100-4500); Lymphocytes Percent Auto 18.7 % (25-40); Mean Corpuscular HGB Conc 34.7 % (30-36); Mean Corpuscular Volume 86.5 fL (80-100); Monocytes Absolute Auto 500 /uL (0-900); Monocytes Percent Auto 6.2 % (3-14); Neutrophils Absolute Auto 6600 /uL (1500-7000); Neutrophils Percent Auto 74.6 % (50-75); Platelet Count 161 X10^3/uL (150-400); Red Blood Cell Count 3.46 X10^6/uL (4.0-5.2); Red Cell Distribution Width 12.9 % (11.6-14.8); White Blood Cell Count 8.8 X10^3/uL (4.5-11.0)
[2023-05-19 11:49] LABS: INR 0.8 (0.9-1.3); Prothrombin Time 9.7 SECONDS (10.1-12.7)
[2023-05-19 11:51] LABS: PTT Partial Thromboplastin Tim 26 SECONDS (26-36)
[2023-05-19] MEDS: MAGNESIUM SULFATE 20 GM/500 ML IV.SOLN IV (11:55)
[2023-05-19 12:06] VITALS: BP 104/55; PULSE 88; RESP 18; TEMP 36.3
[2023-05-19 12:06] LABS: COVID19 -Nasal RAPID Negative (Negative)
[2023-05-19 12:28] LABS: Fibrinogen 556 mg/dL (211-428)
[2023-05-19] MEDS: hydrOXYzine pamoate 25 MG CAPSULE PO (12:45)
[2023-05-19 13:00] VITALS: BP 104/55; PULSE 88; RESP 18; TEMP 36.3
== END 2023-05-19 13:00 | disposition home or self-care (01) ==
PROVIDERS: Admitting Provider Obstetrics & Gynecology; Family Provider Family Medicine; PCP Family Medicine; Referring Provider Obstetrics & Gynecology; Visit Provider Obstetrics & Gynecology
DX: O45.93 Premature separation of placenta, unspecified, third trimester (principal); Z3A.29 29 weeks gestation of pregnancy
CPT/HCPCS: 59025; 59050; 76815; 85025; 85384; 85610; 85730; 86850; 86900; 86901; 87635; 96360; 96372; C9803; G0378; G0379; J0702; J3475

== ENCOUNTER → 2024-08-05 10:19 | Outpatient (CLI) | payer BC, SELFPAY ==
[2024-08-05 11:15] LABS: Add Manual Diff / Slide Review NO; Basophils Absolute Auto 0 /uL (0-100); Basophils Percent Auto 0.3 % (0-2); Eosinophils Absolute Auto 0 /uL (0-450); Eosinophils Percent Auto 0.7 % (2-4); Hematocrit 39.1 % (36-46); Hemoglobin 12.9 g/dL (12.0-16.0); Lymphocytes Absolute Auto 1500 /uL (1100-4500); Mean Corpuscular Hemoglobin 29.2 PG (26-34); Mean Corpuscular Volume 88.4 fL (80-100); Monocytes Absolute Auto 500 /uL (0-900); Monocytes Percent Auto 9.2 % (3-14); Neutrophils Absolute Auto 3200 /uL (1500-7000); Neutrophils Percent Auto 60.8 % (50-75); Platelet Count 235 X10^3/uL (150-400); Red Blood Cell Count 4.42 X10^6/uL (4.0-5.2); Red Cell Distribution Width 13.8 % (11.6-14.8); White Blood Cell Count 5.2 X10^3/uL (4.5-11.0)
[2024-08-05 11:35] LABS: Alanine Aminotransferase 38 IU/L (<35); Albumin 4.3 g/dL (3.5-5.0); Albumin Globulin Ratio 1.5 (1.0-2.8); Alkaline Phosphatase 87 U/L (38-126); Aspartate Aminotransferase 34 IU/L (14-36); BUN Creatinine Ratio 10.4 (6-22); Bilirubin Total 0.4 mg/dL (0.2-1.3); Blood Urea Nitrogen 8 mg/dL (7-17); Calcium 9.7 mg/dL (8.4-10.2); Carbon Dioxide 27 mmol/L (22-32); Chloride 101 mmol/L (98-107); Cholesterol 269 mg/dL (140-199); Estimated Glomerular Filt Rate > 60 mL/min (>60); Globulin 2.8 g/dL (1.7-4.1); Glucose 79 mg/dL (70-100); HDL Cholesterol 54 mg/dL (40-60); HEMOLYSIS < 15 (0-50); LDL Cholesterol Calculated 184 mg/dL (<100); Potassium 4.3 mmol/L (3.4-5.1); Sodium 137 mmol/L (137-145); Total Protein 7.1 g/dL (6.3-8.2); Triglycerides 156 mg/dL (35-150)
[2024-08-05 12:07] LABS: TSH w/ Reflex to FT4 1.54 uIU/mL (0.47-4.68)
[2024-08-06 15:27] LABS: Hep C Virus Ab w/Reflex Quant NEGATIVE s/c (NEGATIVE)
== END ==
LOC: LAB 10:19
PROVIDERS: Family Provider Family Medicine; PCP Family Medicine; Referring Provider Family Medicine; Visit Provider Family Medicine
DX: F41.9 Anxiety disorder, unspecified (principal); L40.9 Psoriasis, unspecified; R11.0 Nausea; R10.9 Unspecified abdominal pain; F33.9 Major depressive disorder, recurrent, unspecified
CPT/HCPCS: 36415; 80053; 80061; 84443; 85025; 86803

== ENCOUNTER → 2024-12-16 07:02 | Outpatient (CLI) | payer BC, SELFPAY ==
--- NOTE | 2024-12-16 07:04 | DI.US.S_ITS ---
PROCEDURE: US PELVIC COMPLETE INDICATIONS: INTERMITTENT BLEEDING. IUD. LLQ PAIN. TECHNIQUE: Real-time scanning was performed of the pelvic organs, with image documentation. Additional endovaginal scanning was necessary due to incomplete visualization of the adnexal and endometrial structures by transabdominal scanning. COMPARISON: [facility], , US PELVIC COMPLETE, 07/12/2022, 11:07. FINDINGS: Uterus: Uterus is anteverted and normal in size at 6.5 x 5.7 x 3.9 cm. The myometrium is the heterogeneous. The endometrium measures 2 mm combined thickness. Intrauterine device appears mild position. The left arm is located posterior laterally 5 mm from the uterine wall. The base of the central stem is located right medial and anteriorly, 3 mm from the uterine wall. The right arm is not seen, likely secondary to shadowing from the stem. Ovaries: The right ovary measures 5.0 x 4.4 x 3.8 cm, with a calculated ovarian volume of 42.8 cc. Simple right ovarian cyst with daughter cyst measuring 4.0 x 3.5 x 3.1 cm. The left ovary measures 3.5 x 3.7 x 3.2 cm, with a calculated ovarian volume of 21.5 cc. Less than 12 follicles can be seen in each ovary. No adnexal masses are seen. Other: No pathologic free abdominal or pelvic fluid. IMPRESSION: Intrauterine device appears malpositioned, as described above. Right ovarian simple cyst with daughter cyst measuring 4.0 cm. No follow-up is necessary. We strive to produce accurate, complete, and clear reports of imaging services. To assist us in improving patient care, this report was composed using standard report templates and voice recognition software. Therefore, it may contain abnormal punctuation, insertions and/or omissions. Occasional wrong-word or sound-alike substitutions may occur. Though we review the report and make efforts to correct it, we do recommend that the report be read carefully in proper context to recognize any text inaccuracies. Dictated by: Gabriel Gorman M.D. on 12/16/2024 at 8:10 Approved by: Gabriel Gorman M.D. on 12/16/2024 at 8:15
== END ==
PROVIDERS: Family Provider Family Medicine; PCP Family Medicine; Referring Provider Family Medicine; Visit Provider Family Medicine
DX: N92.0 Excessive and frequent menstruation with regular cycle (principal); N83.291 Other ovarian cyst, right side; R10.32 Left lower quadrant pain; Z97.5 Presence of (intrauterine) contraceptive device
CPT/HCPCS: 76830; 76856

== ENCOUNTER 2025-02-01 08:26 | Day surgery (SDC) | payer BC, SELFPAY ==
[2025-01-22 10:12] VITALS: BMI 28.1
[2025-02-01] VITALS (9 sets, daily range): BP systolic 96–111; BP diastolic 50–66; PULSE 76–112; RESP 12–20; TEMP 36.2–36.9; O2SAT 94–100; BMI 28.1
[2025-02-01] MEDS: ACETAMINOPHEN IV 1,000 MG/100 ML VIAL 400 MG IV (09:15)
--- NOTE | 2025-02-01 09:19 | P.HPOB_ITS ---
History of Present Illness History of Present Illness Narrative: Arleen Bird is a 39 year old female 3 para 3 with an embedded Mirena IUD. An attempt was made to remove the IUD in the office but Dr. Tapia was unable. Patient would like a new Mirena IUD placed. [facility] Medical History (Updated 01/07/25 @ 06:46 by POLLY Falcon) Attention-deficit hyperactivity disorder, unspecified type Attention or concentration deficit LILLY (generalized anxiety disorder) MDD (major depressive disorder), recurrent episode, moderate Alopecia Headache Shoulder pain Anemia Irregular menstrual cycle Human papilloma virus Hemorrhoid IUD strings lost Panic attack Psoriasis Edema of both lower legs IUD surveillance Anxiety Foraminal stenosis of lumbosacral region Face presentation of fetus Vaginal delivery labor Depression Migraines Abnormal Pap smear of cervix Goiter (01/01/18) Hypothyroidism (05/25/15) Tobacco use disorder (05/25/15) Depression (12/03/13) Bronchitis Surgical History Anesthesia Status post wrist surgery History of third molar tooth extraction Family History (Updated 12/04/22 @ 15:44 by Khadijah Nguyen RN) Grandmother Diabetes mellitus Father Family estrangement Mother Depression Anxiety Social History marital status: number of children: 3 household members: spouse and children lives independently: Yes caregiver/support person: Yes housing: house pets and animals: Yes (1 cat & 1 dog; aware of toxo precautions) education level: college occupational status: employed current occupational exposures/hazards: No special tami needs: No travel history: recent seatbelt use: always water heater temp set < 120 deg: Yes working smoke detector in home: Yes fire extinguisher in home: Yes carbon monox detector in home: Yes firearms in home: No do you feel safe at home: Yes Smoking Status: Former smoker second hand exposure: No alcohol intake: former substance use type: does not use during the past year weight has: increased > 10 lbs well-balanced diet: daily or most days daily servings fruits/ve or more times/day caffeine: Yes (down from 3 to 1 cup coffee/day) Type(s) of exercise: walking and yoga Meds Home Medications and Allergies Home Medications Medication Instructions Recorded Confirmed Type gabapentin 600 mg tablet 1,200 mg PO DAILY nerve pain 11/23/24 02/01/25 History lactobacillus combination no.9 4 PO 11/23/24 01/06/25 History billion cell capsule (Adult 50 Plus Probiotic) levothyroxine 75 mcg tablet See Rx Instructions .Route 12/03/24 02/01/25 Rx .COMPLEX #90 tabs tramadol 50 mg tablet 100 mg (2 x 50 mg) PO Q6H PRN pain 12/08/24 02/01/25 Rx #240 tabs bupropion HCl 150 mg 24 hr tablet, 150 mg PO QAM #30 tabs 01/18/25 02/01/25 Rx extended release duloxetine 30 mg capsule,delayed 30 mg PO DAILY #90 caps 01/28/25 02/01/25 Rx release lisdexamfetamine 30 mg capsule 30 mg PO QAM #30 caps 01/29/25 02/01/25 Rx duloxetine 60 mg capsule,delayed 60 mg PO DAILY 02/01/25 02/01/25 History release Allergies Allergy/AdvReac Type Severity Reaction Status Date / Time clindamycin [CLINDAMYCIN] Allergy Mild rash/itchy Verified 02/01/25 08:54 dexamethasone AdvReac Intermediate abdominal Verified 02/01/25 08:54 pain and diarrhea ketorolac [From TORADOL] AdvReac Intermediate vomiting Verified 02/01/25 08:54 Exam Narrative Exam Narrative: HEENT: No thyromegaly, no anterior cervical or supraclavicular lymphadenopathy. Lungs:Clear to auscultation bilaterally, no wheezes. Cardiovascular: Regular rate and rhythm, no murmurs, rubs, or gallops. Abdomen: Well-healed Pfannenstiel scars. No hepatosplenomegaly. No masses palpable. External genitalia: Normal Vagina: Normal Cervix: Normal. Mirena IUD strings visible Bimanual exam: 7 Week size anteverted uterus. Mobile. Extremities: No edema Assessment & Plan Assessment and plan (1) Malpositioned IUD: Qualifiers: Encounter type: initial encounter Qualified Code(s): T83.32XA - Displacement of intrauterine contraceptive device, initial encounter Status: Acute Plan: Assessment: 39-year-old 3 para 3 with an embedded Mirena IUD Desires new Mirena IUD Plan: Removal and reinsertion of Mirena IUD The risks, benefits, and alternatives to the procedure were explained to the patient. The risks including bleeding, infection, and uterine perforation. She understands these risks and agrees to proceed. A full par Q was held and c onsent form was signed. Time-Based Coding :: [TOTAL MINUTES] spent with patient and on the chart (including review of chart, obtaining history, exam, reviewing outside data, placing orders, documenting exam and treatment plan, and counseling patient) on [DATE].
[2025-02-01] MEDS: LACTATED RINGERS 1,000 ML 21 ML IV (09:21)
--- NOTE | 2025-02-01 09:24 | PM.PREOP ---
Pre-operative Note Interval Note History & Physical reviewed/Exam performed by Physician: Yes Changes to H&P: No H&P completed within 30 days and has changed as indicated here:: 02/01/25
--- NOTE | 2025-02-01 10:34 | PM.GYNOP.1 ---
Operative Date/Time/Diagnoses Date of procedure: 02/01/25 Time of procedure: 10:34 Pre-op diagnosis: Embedded Mirena IUD Post-op diagnosis: same Procedure & Clinicians Procedure: Procedures Operation Date: 02/01/25 09:45 <No data on this case meets the specified criteria> D&C hysteroscopy IUD removal Indications: 39-year-old with IUD embedded in the uterus 1 failed attempt at removal in the office Surgeon: Moriah Diop Anesthesia Type: General (LMA) Operative Notes Findings: 7 week size anteverted uterus Stem of the IUD in the lower uterine segment/left cervix Both fallopian tube ostia observed Could not visualize on hysteroscopy the arms of the IUD Closure Type: not applicable Specimen(s): none Estimated blood loss (mL): 2 Blood products transfused: none Procedure in detail: After informed consent was obtained, the patient was taken to the operating room where she was placed in the dorsal supine position. After adequate LMA general anesthesia was achieved, she was placed in the dorsal lithotomy position, and prepped and draped in the usual sterile fashion. A time-out was performed. A bivalve speculum was placed into the vagina and the anterior lip of the cervix was grasped with a single-tooth tenaculum. The cervical os was sequentially dilated to the # 8 Hegar dilator. A polyp forceps was placed into the uterus and the IUD could be felt. With gentle traction it was not removable. The hysteroscope pass easily into the endometrial cavity. The lower part of the IUD could be seen imbedded in the lower uterine segment/left cervix. A loop was used to try to remove the IUD and was unsuccessful. The hysteroscope was removed. Two more tries with a small clamp were successful at removing the IUD. It was inspected and it was intact. The instruments were removed from the uterus. The single-tooth tenaculum was removed from the anterior lip of the cervix. The bivalve speculum was removed from the vagina. Sponge, lap, and instrument counts were correct x2. The patient tolerated the procedure well, and was taken to PACU in stable condition. Complications: none Post-operative Condition: stable Disposition: PACU Plan for aftercare: Home after recovery
--- NOTE | 2025-02-01 10:38 | SUR.OPER ---
Lithotomy on padded OR bed, head on pillow, arms secured on padded arm boards at <90 degrees abduction. Legs secured in padded yellow fins stirrups.
[2025-02-01] MEDS: ONDANSETRON 4 MG/2 ML INJ IV (10:51)
[2025-02-01] MEDS: HYDROMORPHONE 1 MG INJ IV ×4 (10:52→11:07)
[2025-02-01] MEDS: OXYCODONE IR 5 MG TABLET PO ×2 (10:54→11:29)
== END 2025-02-01 12:04 | disposition home or self-care (01) ==
PROVIDERS: Family Provider Family Medicine; PCP Family Medicine; Referring Provider Obstetrics & Gynecology; Visit Provider Obstetrics & Gynecology
PROC: 0UDB8ZZ Extraction of Endometrium, Via Natural or Artificial Opening Endoscopic (ICD-10-PCS; CPT 58558; principal; 2025-02-01 09:45)
DX: T83.32XA Displacement of intrauterine contraceptive device, initial encounter (principal)
CPT/HCPCS: 58562; C1713; J0131; J1171; J2250; J2405; J2704; J3010

== ENCOUNTER → 2025-06-22 09:12 | Outpatient (CLI) | payer BC, SELFPAY ==
[2025-06-22 10:08] LABS: Add Manual Diff / Slide Review NO; Hematocrit 38.7 % (36-46); Hemoglobin 13.2 g/dL (12.0-16.0); Lymphocytes Absolute Auto 1900 /uL (1100-4500); Mean Corpuscular HGB Conc 34.1 % (30-36); Mean Corpuscular Hemoglobin 30.0 PG (26-34); Mean Corpuscular Volume 88.0 fL (80-100); Platelet Count 201 X10^3/uL (150-400)
[2025-06-22 14:25] LABS: Follicle Stimulating Hormone 3.29 mIU/mL
[2025-06-22 14:48] LABS: Alanine Aminotransferase 23 IU/L (<35); Albumin 4.3 g/dL (3.5-5.0); Albumin Globulin Ratio 1.5 (1.0-2.8); Alkaline Phosphatase 67 U/L (38-126); Blood Urea Nitrogen 8 mg/dL (7-17); Calcium 9.4 mg/dL (8.4-10.2); Carbon Dioxide 22 mmol/L (22-32); Chloride 105 mmol/L (98-107); Cholesterol 203 mg/dL (140-199); Estimated Glomerular Filt Rate > 60 mL/min (>60); Globulin 2.8 g/dL (1.7-4.1); Glucose 89 mg/dL (70-99); HDL Cholesterol 56 mg/dL (40-60); HEMOLYSIS < 15 (0-50); Potassium 4.4 mmol/L (3.4-5.1); Sodium 137 mmol/L (137-145); Total Protein 7.1 g/dL (6.3-8.2); Triglycerides 95 mg/dL (35-150)
[2025-06-22 15:19] LABS: TSH w/ Reflex to FT4 1.37 uIU/mL (0.47-4.68)
[2025-06-22 15:38] LABS: Vitamin B12 341 pg/mL (239-931)
[2025-06-25 11:10] LABS: Estriol,Serum <0.2 ng/mL (.); Estrone,Serum 73 pg/mL (27-231)
[2025-07-03 05:10] LABS: % Free Progesterone 3.2 % (.); Free Progesterone 30 ng/dL (.); Progesterone, Serum 946 ng/dL (.)
== END ==
PROVIDERS: PCP Family Medicine; Referring Provider Family Medicine; Visit Provider Family Medicine
DX: E03.9 Hypothyroidism, unspecified (principal); F43.10 Post-traumatic stress disorder, unspecified; F90.9 Attention-deficit hyperactivity disorder, unspecified type; E66.3 Overweight; D64.9 Anemia, unspecified; Z97.5 Presence of (intrauterine) contraceptive device; R10.20 Pelvic and perineal pain unspecified side
CPT/HCPCS: 36415; 80053; 80061; 82607; 82670; 82677; 82679; 83001; 83002; 84144; 84443; 84999; 85025

== ENCOUNTER → 2025-07-12 08:02 | Outpatient (CLI) | payer BC, SELFPAY ==
--- NOTE | 2025-07-12 08:03 | DI.US.S_ITS ---
PROCEDURE: US PELVIC COMPLETE INDICATIONS: abnormal uterine bleeding and pelvic pain on IUD TECHNIQUE: Real-time scanning was performed of the pelvic organs, with image documentation. Additional endovaginal scanning was necessary due to incomplete visualization of the adnexal and endometrial structures by transabdominal scanning. COMPARISON: [facility], US, US PELVIC COMPLETE, 12/16/2024, 7:23. FINDINGS: Uterus: Uterus is anteverted and normal in size at 7.7 x 4.1 x 5.7 cm. The myometrium is homogeneous. The endometrium measures 3.9 mm combined thickness. Intrauterine device in expected position. Ovaries: Right ovary not visualized. Left ovary measures 2.5 x 1.7 x 1.5 cm with volume estimated at 3.3 cc. Other: No pathologic free abdominal or pelvic fluid. IMPRESSION: 1. Intrauterine device in expected position. 2. Right ovary not visualized and unremarkable sonographic appearance of the left ovary. We strive to produce accurate, complete, and clear reports of imaging services. To assist us in improving patient care, this report was composed using standard report templates and voice recognition software. Therefore, it may contain abnormal punctuation, insertions and/or omissions. Occasional wrong-word or sound-alike substitutions may occur. Though we review the report and make efforts to correct it, we do recommend that the report be read carefully in proper context to recognize any text inaccuracies. Dictated by: Fabian GUAJARDO Interpreted: Doug Pozo MD on 07/12/2025 at 8:39 Transcribed by: SHASHANK on 07/12/2025 at 8:43 Approved by: Doug Pozo M.D. on 07/12/2025 at 14:27
== END ==
LOC: US 08:02
PROVIDERS: PCP Family Medicine; Referring Provider Family Medicine; Visit Provider Family Medicine
DX: N93.9 Abnormal uterine and vaginal bleeding, unspecified (principal); Z97.5 Presence of (intrauterine) contraceptive device; E03.9 Hypothyroidism, unspecified; E66.3 Overweight; D64.9 Anemia, unspecified; R10.20 Pelvic and perineal pain unspecified side
CPT/HCPCS: 76830; 76856

== ENCOUNTER 2025-08-21 19:29 | Emergency (ER) | payer OTHER, SELFPAY ==
[2025-08-21 19:33] VITALS: BP 93/51; PULSE 86; RESP 18; TEMP 36.4; O2SAT 98; BMI 25.2
--- NOTE | 2025-08-21 20:09 | ED.WOUNDLAC ---
HPI - Wound/Laceration General Chief Complaint: Wound/Laceration Stated Complaint: Post op Lt foot / bleeding Time Seen by Provider: 08/21/25 19:56 Source: patient Mode of arrival: Wheelchair History of Present Illness HPI narrative: 40-year-old female status post bunion removal yesterday over at [facility] presents with excruciating left foot pain over the dorsal area where the surgery occurred. Patient denies any fever chills or other symptoms. Related Data Previous Rx's ?Medication ?Instructions ?Recorded levothyroxine 75 mcg tablet See Rx Instructions .Route 02/12/25 .COMPLEX #90 tabs tramadol 50 mg tablet 100 mg (2 x 50 mg) PO Q6H PRN pain 07/01/25 #240 tabs gabapentin 600 mg tablet 1,200 mg (2 x 600 mg) PO 3XD PRN 07/08/25 for neuropathic pain #180 tabs duloxetine 30 mg capsule,delayed 30 mg PO DAILY #90 caps 07/19/25 release duloxetine 60 mg capsule,delayed 60 mg PO DAILY #90 caps 08/16/25 release trazodone 100 mg tablet 100 mg PO BEDTIME PRN insomnia #90 08/16/25 tabs bupropion HCl 150 mg 24 hr tablet, 150 mg PO QAM #90 tabs 08/17/25 extended release lisdexamfetamine 50 mg capsule 50 mg PO QAM #30 caps 08/17/25 amoxicillin 875 mg-potassium 1 tab PO BID #14 tabs 08/21/25 clavulanate 125 mg tablet Allergies Allergy/AdvReac Type Severity Reaction Status Date / Time clindamycin (CLINDAMYCIN) Allergy Mild rash/itchy Verified 08/03/25 12:41 dexamethasone AdvReac Intermediate abdominal Verified 08/03/25 12:41 pain and diarrhea ketorolac (From TORADOL) AdvReac Intermediate vomiting Verified 08/03/25 12:41 Review of Systems Review of Systems ROS Unobtainable: All systems reviewed & are unremarkable except as noted in HPI and below Patient History Medical History (Updated 08/21/25 @ 20:45 by Bishnu Corral MD) Attention-deficit hyperactivity disorder, unspecified type Attention or concentration deficit LILLY (generalized anxiety disorder) MDD (major depressive disorder), recurrent episode, moderate Alopecia Headache Shoulder pain Anemia Irregular menstrual cycle Human papilloma virus Hemorrhoid IUD strings lost Panic attack Psoriasis Edema of both lower legs IUD surveillance Anxiety Foraminal stenosis of lumbosacral region Face presentation of fetus Vaginal delivery labor Depression Migraines Abnormal Pap smear of cervix Goiter (01/01/18) Hypothyroidism (05/25/15) Tobacco use disorder (05/25/15) Depression (12/03/13) Bronchitis Surgical History Anesthesia Status post wrist surgery History of third molar tooth extraction Family History (Updated 12/04/22 @ 15:44 by Khadijah Nguyen RN) Grandmother Diabetes mellitus Father Family estrangement Mother Depression Anxiety Social History marital status: number of children: 3 household members: spouse and children lives independently: Yes caregiver/support person: Yes housing: house pets and animals: Yes (1 cat & 1 dog; aware of toxo precautions) education level: college occupational status: employed current occupational exposures/hazards: No special tami needs: No travel history: recent seatbelt use: always water heater temp set < 120 deg: Yes working smoke detector in home: Yes fire extinguisher in home: Yes carbon monox detector in home: Yes firearms in home: No do you feel safe at home: Yes second hand exposure: No alcohol intake: former substance use type: does not use during the past year weight has: increased > 10 lbs well-balanced diet: daily or most days daily servings fruits/ve or more times/day caffeine: Yes (down from 3 to 1 cup coffee/day) Type(s) of exercise: walking and yoga Exam Narrative Exam Narrative: General: Patient appears to be in no acute distress, acting appropriately Head: normocephalic, atraumatic, HEENT: Pupils equal round reactive, eyes tracking well, neck supple, no JVD Heart: regular rate and rhythm, no murmurs, rubs, or gallops heard Lungs: clear to auscultation, no adventitious sounds Abdomen: soft , nontender, nondistended, positive bowel sounds Neurological: no focal neurological signs, moving all extremities well, alert and oriented x3, Psych: good judgment ,good insight, mood is normal. left foot dorsal area: sutures in place, slightly warm around area, no oozing, no bleeding, Initial Vital Signs Initial Vital Signs: Vital Signs Temperature 97.6 F 08/21/25 19:33 Pulse Rate 86 08/21/25 19:33 Respiratory Rate 18 08/21/25 19:33 Blood Pressure 93/51 L 08/21/25 19:33 Pulse Oximetry 98 08/21/25 19:33 Oxygen Delivery Method Room Air 08/21/25 19:33 Course Orders Ordered: ED Orders 08/21/25 20:12 CBC Auto Diff [Complete Blood Count AUTO DIFF] Stat CMP [Comprehensive Metabolic Panel] Stat Lactate (Lactic Acid) Stat Vital Signs Vital signs: Vital Signs - 8 hr 08/21/25 20:51 Pulse Rate 77 Respiratory Rate 15 Blood Pressure 90/46 L Pulse Oximetry 96 Oxygen Delivery Method Room Air MDM - Wound/Laceration Lab Data 08/21/25 20:12 08/21/25 20:12 Labs: Lab Results 08/21/25 Range/Units 20:12 WBC 10.4 (4.5-11.0) X10^3/uL RBC 3.88 L (4.0-5.2) X10^6/uL Hgb 11.6 L (12.0-16.0) g/dL Hct 34.7 L (36-46) % MCV 89.4 (80-100) fL MCH 29.8 (26-34) PG MCHC 33.4 (30-36) % RDW 13.7 (11.6-14.8) % Plt Count 164 (150-400) X10^3/uL Neut % (Auto) 72.4 (50-75) % Lymph % (Auto) 18.5 L (25-40) % Hardeman % (Auto) 8.1 (3-14) % Eos % (Auto) 0.9 L (2-4) % Baso % (Auto) 0.1 (0-2) % Neut # (Auto) 7500 H (4081-9217) /uL Lymph # (Auto) 1900 (4193-8358) /uL Hardeman # (Auto) 800 (0-900) /uL Eos # (Auto) 100 (0-450) /uL Baso # (Auto) 0 (0-100) /uL Sodium 138 (137-145) mmol/L Potassium 3.9 (3.4-5.1) mmol/L Chloride 107 (98-107) mmol/L Carbon Dioxide 27 (22-32) mmol/L BUN 10 (7-17) mg/dL Creatinine 0.70 (0.52-1.04) mg/dL Estimated GFR > 60 (>60) mL/min BUN/Creatinine Ratio 14.3 (6-22) Glucose 80 (70-99) mg/dL Lactate 0.6 L (0.7-2.1) mmol/L Calcium 8.0 L (8.4-10.2) mg/dL Total Bilirubin 0.1 L (0.2-1.3) mg/dL AST 45 H (14-36) IU/L ALT 32 (<35) IU/L Alkaline Phosphatase 64 (38-126) U/L Total Protein 6.2 L (6.3-8.2) g/dL Albumin 3.6 (3.5-5.0) g/dL Globulin 2.6 (1.7-4.1) g/dL Albumin/Globulin Ratio 1.4 (1.0-2.8) MDM Narrative Medical decision making narrative: 40-year-old female status post bunion removal over dorsal side of left foot. Patient is having excruciating pain today. Offered to do a CT of the area to make sure there is no abscess or infection but patient refused as she was in a estes to get back to her children. She accepted the antibiotics and advised that she will follow up with her ribbing machine operator. She was prescribed Augmentin to be completed twice a day over a week. Advised to follow up if symptoms worsen. Discharge Plan Departure Patient Disposition: Home Clinical Impression: Post-operative infection Qualifiers: Encounter type: initial encounter Postoperative infection type: superficial incisional surgical site Qualified Code(s): T81.41XA - Infection following a procedure, superficial incisional surgical site, initial encounter Instructions: DI for Wound Infection Activity Restrictions/Additional Instructions: Take antibiotics as prescribed. follow up with surgeon as planned. come sooner if area worsens . Prescriptions: New amoxicillin-pot clavulanate 875-125 mg tablet 1 tab PO BID Qty: 14 0RF No Action lisdexamfetamine 50 mg capsule 50 mg PO QAM Qty: 30 0RF bupropion HCl 150 mg tablet extended release 24 hr 150 mg PO QAM Qty: 90 1RF duloxetine 30 mg capsule,delayed release(DR/EC) 30 mg PO DAILY Qty: 90 0RF Rx Instructions: Take with 60mg capsule daily for 90mg total levothyroxine 75 mcg tablet See Rx Instructions .ROUTE .COMPLEX Qty: 90 3RF Dose Instruction: TAKE 1 TABLET BY MOUTH EVERY DAY Rx Instructions: TAKE 1 TABLET BY MOUTH EVERY DAY tramadol 50 mg tablet 100 mg PO Q6H PRN (Reason: pain) Qty: 240 1RF gabapentin 600 mg tablet 1,200 mg PO 3XD PRN (Reason: for neuropathic pain) Qty: 180 3RF duloxetine 60 mg capsule,delayed release(DR/EC) 60 mg PO DAILY Qty: 90 0RF Rx Instructions: Take with 30mg capsule for total daily dose of 90mg trazodone 100 mg tablet 100 mg PO BEDTIME PRN (Reason: insomnia) Qty: 90 0RF Referrals: Chay Wong MD [Primary Care Provider, Family Practice] Stand Alone Forms: Patient Portal/API
[2025-08-21 20:51] VITALS: BP 90/46; PULSE 77; RESP 15; O2SAT 96
[2025-08-21 21:46] LABS: Add Manual Diff / Slide Review NO; Hematocrit 34.7 % (36-46); Hemoglobin 11.6 g/dL (12.0-16.0); Lymphocytes Absolute Auto 1900 /uL (1100-4500); Mean Corpuscular HGB Conc 33.4 % (30-36); Mean Corpuscular Hemoglobin 29.8 PG (26-34); Mean Corpuscular Volume 89.4 fL (80-100); Platelet Count 164 X10^3/uL (150-400)
[2025-08-21 21:51] LABS: Alanine Aminotransferase 32 IU/L (<35); Albumin 3.6 g/dL (3.5-5.0); Albumin Globulin Ratio 1.4 (1.0-2.8); Alkaline Phosphatase 64 U/L (38-126); Blood Urea Nitrogen 10 mg/dL (7-17); Calcium 8.0 mg/dL (8.4-10.2); Carbon Dioxide 27 mmol/L (22-32); Chloride 107 mmol/L (98-107); Estimated Glomerular Filt Rate > 60 mL/min (>60); Globulin 2.6 g/dL (1.7-4.1); Glucose 80 mg/dL (70-99); HEMOLYSIS < 15 (0-50); Lactate (Lactic Acid) 0.6 mmol/L (0.7-2.1); Potassium 3.9 mmol/L (3.4-5.1); Sodium 138 mmol/L (137-145); Total Protein 6.2 g/dL (6.3-8.2)
== END 2025-08-21 20:56 | disposition home or self-care (01) ==
PROVIDERS: Emergency Provider Family Medicine; PCP Family Medicine
DX: T81.41XA Infection following a procedure, superficial incisional surgical site, initial encounter (principal); M79.672 Pain in left foot
CPT/HCPCS: 80053; 83605; 85025; 99281